=== PATIENT | female | born 1950 | race Caucasian/White ===

== ENCOUNTER 2018-06-26 06:48 | Day surgery (SDC) | payer MEDICARE, BC, SELFPAY ==
--- NOTE | 2018-06-26 06:54 | PDOC.DSDIS_ITS ---
Discharge Plan Disposition Patient Disposition: HOME Condition: Fair Discharge Details Reason For Visit: SCREENING Attending Provider: Manda Vivar Primary Care Provider: Bridgette Batista Home Meds and New Rx's Prescriptions: Continue omega-3 fatty acids 1,000 MG capsule 1 cap PO DAILY RF: 0 calcium carbonate-vitamin D3 [Caltrate with Vitamin D3] 1 EACH tablet 1 tab PO BID RF: 0 aspirin [Aspirin Low-Strength] 81 MG tablet,chewable 81 mg PO DAILY RF: 0 naproxen sodium [Aleve] 220 MG tablet 2 tab PO Q12H PRN RF: 0 naproxen 375 MG tablet,delayed release (DR/EC) 375 mg PO Q12H PRN Qty: 40 RF: 0 Atorvastatin Calcium 20 MG tablet 20 mg PO DAILY Qty: 90 RF: 12 losartan [Cozaar] 100 MG tablet 100 mg PO DAILY Qty: 90 RF: 4 conjugated estrogens [Premarin] 30 GM cream 5 gm VG twice weekly Qty: 3 RF: 12 Discontinued bisacodyl [Bisa-Lax] 5 MG tablet,delayed release (DR/EC) 5 mg PO as directed Qty: 4 RF: 0 polyethylene glycol 3350 255 GM powder 255 gm PO as directed for colo Qty: 255 RF: 0 Discharge Instructions Instructions: Colonoscopy (DC), Diverticulosis (DC) Additional Instructions: Findings: Diverticulosis Follow up: as needed as you will be 77 when you would be due for a colonoscopy Diet: high fiber diet New Medications: none Please call if you develop: fevers >101.5 Nausea or Vomiting Abdominal pain that is not transient 1. Because there will be medication in your system for the next 24 hours, you may feel a little sleepy. Your coordination will be affected. Therefore: a. Do not drive or operate dangerous equipment for 24 hours. b. Do not drink alcohol beverages for 24 hours (not even beer). c. Plan to go home and rest for the day. 2. Generally there are no restrictions on your activity after a day or so has gone by, but you may feel a bit fatigued for a few days. 3 After you arrive home you may have a light meal and return to a normal diet as you can tolerate it without feeling sick to your stomach. 4. After surgery, you may feel pain or discomfort. This should be only transient , but if it persists please contact your doctor. 5. If there are any questions regarding the findings of your procedure, please feel free to contact your doctor. 6. If you are unable to contact your doctor with a problem, contact the hospital at [phone]. 7. Continue all your regular medications unless directed otherwise. I understand the above instructions and have no questions. Signature of Patient or Responsible Adult Escort Date/Time Name of Responsible Adult Escort Signature of Nurse Date/Time Stand Alone Forms: Adrienne Shah (DSU) Activity:: Activity as Tolerated Diet:: high fiber diet Discharge Orders Discharge Orders: Discharge Order (Routine); Ordered 06/26/18 Ordered By: Manda Vivar
--- NOTE | 2018-06-26 06:54 | W.COLOREPORT ---
Date of service: 06/26/18 Colonoscopy Report Date of procedure: 06/26/18 Pre-op diagnosis general: Screening Colonoscopy Post-op diagnosis procedure note: other (Diverticulosis) Procedure: Colonoscopy Surgeon: Manda Vivar Anesthesia proc note operative: MAC Estimated blood loss (mL): 3 Pathology: none sent Complications: None Disposition: same day Indications: Mrs. Streeter is a 67 year old female who was seen in the office for a screening colonoscopy. Risks, benefits and complications and the patient wished to proceed. No guarantees were given or implied. Prep: Miralax Procedure Start Time: 08:33 Procedure End Time: 08:57 Retraction Time: 13 min Findings: Moderate Diverticulosis of the descending and sigmoid colon Procedure Description: After informed consent was obtained the patient was taken to the procedure room and placed in a left decubitous position. Monitors were applied and a time out was done. The patients name, date of , procedure, allergies to medications and metal in their body was reviewed. The patient was then sedated. Once sedated and comfortable a rectal exam was done. External exam was normal. Internal exam revealed a normal sphincter tone and no palpable masses. The scope was then introduced and retrofelxed. Small internal hemorrhoids were identified. The scope was then advanced to the cecum without difficulty. The TI and appendiceal orifice were identified. The prep was adequate. The scope was then slowly retracted over 13 minutes back into the rectum. The scope was removed and the patient was woken up and taken back to Same day surgery in stable condition. The patient tolerated the procedure well and there were no immediate complications. Follow up: The patient should follow up as needed due to their age, unless they develop changes in bowel habits or other new gastrointestinal complaints.
[2018-06-26 07:03] VITALS: BP 125/73; PULSE 80; RESP 16; TEMP 36.7; O2SAT 96
[2018-06-26] MEDS: Lactated Ringers 1,000 ML 80 ML IV (07:31)
[2018-06-26 09:40] VITALS: BP 130/63; PULSE 59; RESP 18; TEMP 37.3; O2SAT 95
== END 2018-06-26 10:10 | disposition home or self-care (01) ==
PROVIDERS: PCP Family Medicine; Visit Provider Surgery
PROC: 0DJD8ZZ Inspection of Lower Intestinal Tract, Via Natural or Artificial Opening Endoscopic (ICD-10-PCS; CPT 45378; principal; 2018-06-26 08:10)
DX: Z12.11 Encounter for screening for malignant neoplasm of colon (principal); K57.30 Diverticulosis of large intestine without perforation or abscess without bleeding; K64.8 Other hemorrhoids
CPT/HCPCS: G0121

== ENCOUNTER 2019-04-25 01:48 | Outpatient (CLI) | payer MEDICARE, BC, SELFPAY ==
[2019-04-25 13:15] LABS: ALT 30 U/L (12-78); AST 20 U/L (15-37); Alkaline Phosphatase 49 U/L (46-116); Anion Gap 9.4 mmol/L (3-11); BUN 15 mg/dL (7-18); Bilirubin, Total 0.7 mg/dL (0.2-1.0); CO2 28.6 mmol/L (21.0-32.0); CREATININE 0.71 mg/dL (0.55-1.02); Calcium 9.1 mg/dL (8.5-10.1); Calculated LDL 113 mg/dL; Chloride 105 mmol/L (98-107); Cholesterol 187 mg/dL (50-200); Glucose 86 mg/dL (70-100); HDL Cholesterol 53 mg/dL (40-60); Potassium 4.4 mmol/L (3.5-5.1); Sodium 143 mmol/L (136-145); Triglyceride 108 mg/dL (30-150)
== END 2019-04-25 02:08 ==
PROVIDERS: PCP Family Medicine; Visit Provider Family Medicine
DX: I10 Essential (primary) hypertension (principal)
CPT/HCPCS: 36415; 80053; 80061; 83721

== ENCOUNTER 2019-05-17 00:23 | Outpatient (CLI) | payer MEDICARE, BC, SELFPAY ==
--- NOTE | 2019-05-17 08:00 | DI.MAMMO_ITS ---
SYMPTOM/DIAGNOSIS: SCREENING Z12.31 MAMMOGRAM: Mammograms were interpreted according to the usual protocol including computer analysis with CAD system, tomosynthesis and C view imaging. The breast tissue is heterogeneously radiodense which lowers the sensitivity of the study. There is no dominant mass. There are no suspicious calcifications and there has been no significant interval change when compared with prior images. SUMMARY: No evidence of malignancy, Category 1. Follow up surveillance with annual screening is recommended. Breast density category C. MQSA ASSESSMENT OF FINDINGS: Negative. Category 1. Patient will receive a letter notifying them of these results. Bi-RADS category C. The breasts are heterogeneously dense, which may obscure small masses.
--- NOTE | 2019-05-17 08:23 | DI.RAD_ITS ---
SYMPTOM/DIAGNOSIS: LEFT KNEE PAIN M25.562 LEFT KNEE: There is evidence of chondrocalcinosis. Mild periarticular hypertrophic spurring is identified. Findings are consistent with mild to moderate DJD.
== END 2019-05-17 00:43 ==
PROVIDERS: PCP Family Medicine; Visit Provider Family Medicine
DX: Z12.31 Encounter for screening mammogram for malignant neoplasm of breast (principal); M25.562 Pain in left knee
CPT/HCPCS: 77063; 77067; 73564

== ENCOUNTER 2020-10-13 08:22 | Outpatient (CLI) | payer MEDICARE, BC, SELFPAY ==
[2020-10-13 12:50] LABS: ALT 27 U/L (14-59); AST 18 U/L (15-37); Albumin 4.2 g/dL (3.4-5.0); Alkaline Phosphatase 36 U/L (46-116); Anion Gap 7.9 mmol/L (3-11); BUN 12 mg/dL (7-18); Bilirubin, Total 0.7 mg/dL (0.2-1.0); CO2 27.1 mmol/L (21.0-32.0); CREATININE 0.78 mg/dL (0.55-1.02); Calcium 9.1 mg/dL (8.5-10.1); Calculated LDL 99 mg/dL (<100); Chloride 107 mmol/L (98-107); Cholesterol 175 mg/dL (<200); Glucose 95 mg/dL (74-106); HDL Cholesterol 53 mg/dL (40-60); Potassium 4.1 mmol/L (3.5-5.1); Sodium 142 mmol/L (136-145); Total Protein 7.2 g/dL (6.4-8.2); Triglyceride 116 mg/dL (<150)
== END 2020-10-13 08:42 ==
PROVIDERS: PCP Family Medicine; Visit Provider Family Medicine
DX: I10 Essential (primary) hypertension (principal); E78.00 Pure hypercholesterolemia, unspecified
CPT/HCPCS: 36415; 80053; 80061

== ENCOUNTER 2021-05-12 03:26 | Outpatient (CLI) | payer MEDICARE, BC, SELFPAY ==
[2021-05-12 12:38] LABS: Hemoglobin A1C 5.8 % (<5.7)
[2021-05-12 13:02] LABS: ALT 32 U/L (14-59); AST 18 U/L (15-37); Albumin 4.2 g/dL (3.4-5.0); Alkaline Phosphatase 41 U/L (46-116); BUN 15 mg/dL (7-18); Bilirubin, Total 0.8 mg/dL (0.2-1.0); CREATININE 0.7 mg/dL (0.55-1.02); Calcium 9.3 mg/dL (8.5-10.1); Calculated LDL 108 mg/dL (<100); Chloride 106 mmol/L (98-107); Cholesterol 181 mg/dL (<200); Glucose 94 mg/dL (74-106); HDL Cholesterol 54 mg/dL (40-60); Potassium 4.2 mmol/L (3.5-5.1); Sodium 143 mmol/L (136-145); TSH (W/Ref FT4) 2.08 uIU/mL (0.36-3.74); Total Protein 7.3 g/dL (6.4-8.2); Triglyceride 98 mg/dL (<150); Vitamin B12 389 pg/mL (193-986)
== END 2021-05-12 03:27 | disposition home or self-care (01) ==
LOC: LOS 03:26
PROVIDERS: PCP Family Medicine; Visit Provider Family Medicine
DX: I10 Essential (primary) hypertension (principal); E78.00 Pure hypercholesterolemia, unspecified; E11.9 Type 2 diabetes mellitus without complications; G56.03 Carpal tunnel syndrome, bilateral upper limbs; G62.9 Polyneuropathy, unspecified; R20.0 Anesthesia of skin
CPT/HCPCS: 36415; 80053; 80061; 82607; 83036; 84443

== ENCOUNTER 2021-05-27 02:10 | Outpatient (CLI) | payer MEDICARE, BC, SELFPAY ==
--- NOTE | 2021-05-27 07:15 | DI.MAMMO_ITS ---
Exam(s) MAMMO SCREENING EXAM: MAMMO SCREENING CLINICAL HISTORY: screening,Z12.39 TECHNIQUE: Mammograms were interpreted according to the usual protocol including computer analysis w Touchbase CAD system, tomosynthesis and C-view imaging. COMPARISON: 2011 through 2018 FINDINGS: The breasts are composed of heterogeneously dense fibroglandular densities, Breast Density category C . No suspicious masses or suspicious microcalcifications are seen. No skin thickening or abnormal axillary lymph nodes are seen. There has been no significant change from prior exams. IMPRESSION: BI-RADS Category 1, Negative mammogram. Yearly screening mammography is recommended. Breast Density Category C, heterogeneously Dense. The mammogram demonstrates the patient's breast tissue is dense. Dense breast tissue is very common a nd is not abnormal but dense breast tissue can make it harder to find cancer on a mammogram. Also, de nse breast tissue may increase breast cancer risk. This information about the result of the mammogram report was provided to the patient to raise their awareness. Use this report when you speak with the patient about their risks for breast cancer, which includes their family history. At that time, you may recommend additional screening tests (Ultrasound or MRI) as they might be useful based on their r isk. A negative radiographic report should not delay biopsy if a dominant or clinically suspicious mass is present. Up to ten percent of cancers are not identified on mammography. A negative report may reinforce clinical impression. Adenosis and dense breasts may obscure an underlying neoplasm. False positive reports average 6 to 10%.
== END 2021-05-27 02:30 ==
PROVIDERS: PCP Family Medicine; Visit Provider Family Medicine
DX: Z12.31 Encounter for screening mammogram for malignant neoplasm of breast (principal)
CPT/HCPCS: 77063; 77067

== ENCOUNTER → 2021-10-21 08:48 | Outpatient (BNVA) | payer MEDICARE, BC, SELFPAY | PROVIDERS: PCP Family Medicine; Referring Provider Family Medicine; Visit Provider Psychiatry & Neurology Neurology | DX: G56.03 Carpal tunnel syndrome, bilateral upper limbs (principal); I10 Essential (primary) hypertension | CPT/HCPCS: 95909; 99203 ==

== ENCOUNTER → 2021-12-07 10:00 | Outpatient (BNVA) | payer MEDICARE, BC, SELFPAY | PROVIDERS: PCP Family Medicine; Referring Provider Family Medicine; Visit Provider Student in an Organized Health Care Education/Training Program | DX: G56.02 Carpal tunnel syndrome, left upper limb (principal); G56.01 Carpal tunnel syndrome, right upper limb | CPT/HCPCS: 99213 ==

== ENCOUNTER 2022-01-04 02:40 | Outpatient (CLI) | payer MEDICARE, BC, SELFPAY ==
[2022-01-04 11:25] LABS: Source Nasal/Nares
[2022-01-04 16:09] LABS: COVID-19 PCR Negative (Negative)
== END 2022-01-04 02:41 | disposition home or self-care (01) ==
LOC: LBO 02:41
PROVIDERS: PCP Family Medicine; Visit Provider Student in an Organized Health Care Education/Training Program
DX: Z20.822 Contact with and (suspected) exposure to COVID-19 (principal); Z01.818 Encounter for other preprocedural examination
CPT/HCPCS: 87635; U0005

== ENCOUNTER 2022-01-05 08:53 | Day surgery (SDC) | payer MEDICARE, BC, SELFPAY ==
[2022-01-05 09:04] VITALS: BP 152/76; PULSE 58; RESP 16; TEMP 36.7; O2SAT 97
--- NOTE | 2022-01-05 09:26 | W.PREOPHP ---
Assessment and Plan Assessment and plan (1) Right carpal tunnel syndrome: Status: Acute Assessment and plan: Laine is a 71-year-old with bilateral carpal tunnel syndrome. She is here today for right carpal tunnel release. She is to have a left carpal tunnel release in a few weeks. I discussed the technical details of carpal tunnel release and that I perform an endoscopic release, but would make a larger, open, incision if necessary for visualization. I discussed the risks of the procedure to include, but not limited to, bleeding, infection, palmar pain, stiffness, damage to nerves, damage to vessels, damage to tendons, weakness, recurrence, and incomplete release. Given these risks, Laine desires to proceed. (2) Left carpal tunnel syndrome: Status: Acute History of Present Illness Narrative: Laine is a 71-year-old who has carpal tunnel syndrome. Both hands are affected but the right hand is slightly worse. She is right-hand dominant and is here today to proceed with a right carpal tunnel release to be followed by left carpal tunnel release in a few weeks. She had persistent numbness and tingling of both hands. She has some weakness and some limitations in function. She is had no change or medical history. No chest pain or shortness of breath. Review of Systems All systems reviewed & are unremarkable except as noted in HPI and below PFSH All Active Problems Right carpal tunnel syndrome (Acute) Left carpal tunnel syndrome (Acute) Neuropathy (Acute) Patient is full code (Acute) Left knee pain (Acute) Cramping of feet (Acute 08/11/15) Hip pain (Acute 09/04/13) History of laser assisted in situ keratomileusis (Acute) History of surgical procedure (Acute) Injury of head (Acute 12/15/07) Neck pain (Acute 09/04/13) Pain of both shoulder joints (Acute 08/11/15) Palpitations (Acute) Positive test for human papillomavirus (HPV) (Acute 02/10/15) Radial styloid tenosynovitis (Acute 04/13/17) Schwannomatosis (Acute) Shoulder pain (Acute 08/11/15) Vertigo (Acute) Varicose veins of lower extremity (Chronic) Vaginal atrophy (Chronic 04/01/16) Osteopenia (Chronic) Organic sleep apnea, 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 Hypercholesterolemia (Chronic) Essential hypertension (Chronic 08/24/13) Diverticulosis of colon without diverticulitis (Chronic 12/07/11) Atypical mole (Chronic 09/19/17) Actinic keratosis (Chronic 03/21/17) Diverticulosis (Chronic) Medical History Cramping of feet 08/11/15 De Quervain's disease (tenosynovitis) 04/13/17 Darrell Scott PT; Left Wrist Hip pain 09/04/13 History of benign schwannoma Hypercholesterolemia Hypertension Injury of head 12/15/07 after falling; with little sequelae Neck pain 09/04/13 Osteopenia Pain of both shoulder joints 08/11/15 Palpitations Positive test for human papillomavirus (HPV) (02/10/15) neg pap, (+)HR HPV 2013 and 2014 colposcopy - per [facility] no further paps needed pap-ASC-US, (+) HR HPV 02/23/16 Positive test for human papillomavirus (HPV) 02/10/15 neg pap, (+) HR HPV 2013 and 2014. colposcopy- per [facility] no further needed. pap-ASC-US, (+) HR HPV 02/23/16; Neg HPV 06/28/16. No more paps Shoulder pain 08/11/15 unspecified laterality Sleep apnea Varicose veins of both lower extremities Surgical History Colonoscopy - IV Sedation 2007-nl H/O surgical procedure excision of mediastinal schwannoma Hx of LASIK 10/17/06 LASIX (~2006) PROCEDURES OTHER SOFT TISSUE EXCIS, 1988 excision of mediastinal schwannoma Family History Mother , 80 Essential hypertension Heart disease CHF Hyperlipidemia Myocardial infarction Father , 69 Alcohol abuse Smoker Cancer Brother Heart disease Myocardial infarction X 3 Brother Heart disease ANGINA Myocardial infarction Maternal Grandmother Cancer Paternal Grandmother Rectal cancer Uncle Heart disease Myocardial infarction 2 UNCLES Sister Heart disease Myocardial infarction PACEMAKER FIRST COUSIN Heart disease Myocardial infarction Maternal Grandfather Diabetes Paternal Grandfather No problems noted. Sister Skin cancer Heart disease NEPHEW Myocardial infarction Sister Heart disease Daughter No problems noted. Daughter No problems noted. Social History Smoking/Tobacco Use Status: Never Second Hand Exposure: Yes Smoking risk assessment performed?: Yes Alcohol Intake: current Alcohol Intake frequency: a few times a week Alcohol type: wine Drug use: Never Substance use type: does not use Counseling given: No Counseling provided: none Household members: spouse and other Details: Home provider x 2 Housing: house Number of Children: 3 Communication Needs: None Do you need help understanding health information?: Rarely current occupation: Home Care provider Do you think of yourself as: straight/heterosexual What is your relationship status?: How often do you talk on the phone with friends or family?: once per week Do you belong to any clubs or organized social groups?: no Panel score (0-1 are the most socially isolated patients): 1 Seatbelt use: always Drive intox or ride w/intox public transit bus driver: No Do you feel safe at home: No Do you feel safe in your relationship?: No Meds Allergies and Home Medications Allergies Allergy/AdvReac Type Severity Reaction Status Date / Time lisinopril AdvReac Unknown COUGH Verified 01/05/22 09:08 Home Medications Medication Instructions Recorded Confirmed Type calcium carbonate 600 mg-vitamin 1 tab PO BID 01/01/13 01/05/22 History D3 20 mcg (800 unit) tablet (Caltrate with Vitamin D3) aspirin 81 mg chewable tablet 81 mg PO DAILY tab-cap 10/07/14 01/05/22 History (Aspirin Low-Strength) acetaminophen 650 mg 650 mg PO Q12H PRN tab 05/01/19 01/05/22 History tablet,extended release (Tylenol Arthritis Pain) magnesium oxide 420 mg tablet 420 mg PO DAILY 11/06/20 01/05/22 History atorvastatin 20 mg tablet 20 mg PO DAILY #90 tab 03/06/21 01/05/22 Rx losartan 100 mg tablet (Cozaar) 100 mg PO DAILY #90 tab 03/06/21 01/05/22 Rx omega-3 fatty acids 500 mg capsule 500 mg PO DAILY 05/07/21 01/05/22 History estradiol 2 g VG .twice weekly #42.5 gm 11/09/21 01/05/22 Rx Exam Resp Effort & Inspection: normal respiratory effort and able to speak in complete sentences Auscultation: clear to auscultation bilaterally Cardio Rate: regular rate Rhythm: regular rhythm Results Last Vital Signs Temp 36.7 C 01/05/22 09:04 Pulse 58 L 01/05/22 09:04 Resp 16 01/05/22 09:04 BP 152/76 H 01/05/22 09:04 Pulse Ox 97 01/05/22 09:04
[2022-01-05] MEDS: Lactated Ringers 1,000 ML 80 ML IV (09:30)
--- NOTE | 2022-01-05 09:33 | W.ANESPRE ---
General Info Date of Service Date Performed: 01/05/22 Height: 5 ft 3 in Weight: 72.3 kg Body Mass Index (BMI): 28.2 Surgical Procedure: Operation Date: 01/05/22 10:55 Proposed Procedure Side Surgeon p Wrist ECTR Right Duane Del Angel MD Meds Allergies and Home Medications Allergies Allergy/AdvReac Type Severity Reaction Status Date / Time lisinopril AdvReac Unknown COUGH Verified 01/05/22 09:08 Home Medication Medication Instructions Recorded calcium carbonate 600 mg-vitamin 1 tab PO BID 01/01/13 D3 20 mcg (800 unit) tablet (Caltrate with Vitamin D3) aspirin 81 mg chewable tablet 81 mg PO DAILY tab-cap 10/07/14 (Aspirin Low-Strength) acetaminophen 650 mg 650 mg PO Q12H PRN tab 05/01/19 tablet,extended release (Tylenol Arthritis Pain) magnesium oxide 420 mg tablet 420 mg PO DAILY 11/06/20 atorvastatin 20 mg tablet 20 mg PO DAILY #90 tab 03/06/21 losartan 100 mg tablet (Cozaar) 100 mg PO DAILY #90 tab 03/06/21 omega-3 fatty acids 500 mg capsule 500 mg PO DAILY 05/07/21 estradiol 2 g VG .twice weekly #42.5 gm 11/09/21 Current Visit Medications: Current Medications Generic Name Dose Route Start Last Admin Trade Name Freq PRN Reason Stop Dose Admin Ringer's Solution 1,000 mls @ 80 mls/hr 01/05/22 06:00 01/05/22 09:30 IV 01/14/22 23:59 80 mls/hr INFUSION COBY Administration Cefazolin Sodium/Dextrose 2 gm in 50 mls @ 100 mls/hr 01/05/22 06:00 Ancef Duplex IVPB 01/05/22 23:59 PREOP COBY IV Miscellaneous Supplies 1 each 01/05/22 06:00 Iv Access IV 01/14/22 23:59 DIRECTED COBY Sodium Chloride 0 ml 01/05/22 06:00 Normal Saline Flush 10 Ml Syr IV 01/14/22 23:59 PRN PRN Sodium Chloride 0 ml 01/05/22 06:00 Normal Saline 10 Ml Vial IJ 01/14/22 23:59 DIRECTED PRN Sterile Water 0 ml 01/05/22 06:00 Water,Injection,Sterile 10 Ml Vial IJ 01/14/22 23:59 DIRECTED PRN [facility] Active Problems Active Problems: Problem Status Onset Code Right carpal tunnel syndrome G56.01 Left carpal tunnel syndrome G56.02 Neuropathy G62.9 Patient is full code Z78.9 Left knee pain M25.562 Cramping of feet 08/11/15 R25.2 Hip pain 09/04/13 M25.559 History of laser assisted in situ keratomileusis Z98.890 History of surgical procedure Z98.890 Injury of head 12/15/07 S09.90XA Neck pain 09/04/13 M54.2 Pain of both shoulder joints 08/11/15 M25.511, M25.512 Palpitations R00.2 Positive test for human papillomavirus (HPV) 02/10/15 Radial styloid tenosynovitis 04/13/17 M65.4 Schwannomatosis Q85.03 Shoulder pain 08/11/15 M25.519 Vertigo R42 Varicose veins of lower extremity I83.90 Vaginal atrophy 04/01/16 N95.2 Osteopenia M85.80 Organic sleep apnea, unspecified G47.30 Hypercholesterolemia E78.00 Essential hypertension 08/24/13 I10 Diverticulosis of colon without diverticulitis 12/07/11 K57.30 Atypical mole 09/19/17 D22.9 Actinic keratosis 03/21/17 L57.0 Diverticulosis K57.90 Medical History Medical History Cramping of feet 08/11/15 De Quervain's disease (tenosynovitis) 04/13/17 Darrell Scott, PT; Left Wrist Hip pain 09/04/13 History of benign schwannoma Hypercholesterolemia Hypertension Injury of head 12/15/07 after falling; with little sequelae Neck pain 09/04/13 Osteopenia Pain of both shoulder joints 08/11/15 Palpitations Positive test for human papillomavirus (HPV) (02/10/15) neg pap, (+)HR HPV 2013 and 2014 colposcopy - per [facility] no further paps needed pap-ASC-US, (+) HR HPV 02/23/16 Positive test for human papillomavirus (HPV) 02/10/15 neg pap, (+) HR HPV 2013 and 2014. colposcopy- per [facility] no further needed. pap-ASC-US, (+) HR HPV 02/23/16; Neg HPV 06/28/16. No more paps Shoulder pain 08/11/15 unspecified laterality Sleep apnea Varicose veins of both lower extremities Surgical History Surgical History Colonoscopy - IV Sedation 2008-nl H/O surgical procedure excision of mediastinal schwannoma Hx of LASIK 10/17/06 LASIX (~2006) PROCEDURES OTHER SOFT TISSUE EXCIS, 1988 excision of mediastinal schwannoma Tobacco Smoking/Tobacco Use Status: Never Passive smoking exposure: Yes Second hand exposure: Yes Alcohol Alcohol Intake: current Alcohol intake frequency: a few times a week Alcohol type: wine Substance Use Substance use: Never Substance use type: does not use Counseling provided: none Vital Signs and Lab Results Vital Signs Most Recent Vital Signs in EMR: Most Recent Vital Signs Temp Pulse Resp BP Pulse Ox 36.7 C 58 L 16 152/76 H 97 01/05/22 09:04 01/05/22 09:04 01/05/22 09:04 01/05/22 09:04 01/05/22 09:04 Lab Results Blood Type / Crossmatch: No Data to Display Complete Blood Count: No Data to Display Complete Metabolic Panel: No Data to Display Liver Function Panel: No Data to Display Coagulation Panel: No Data to Display Cardiac Panel: No Data to Display Arterial Blood Gas: No Data to Display Venous Blood Gas: No Data to Display Pancreas Panel: No Data to Display Thyroid Panel: No Data to Display Infectious Disease: Coronavirus (COVID-19)(PCR) Negative (Negative) 01/04/22 09:41 01/04/22 Coronavirus 2019 Source Nasal/Nares 01/04/22 09:41 01/04/22 Blood Cultures: No Data to Display Toxicology Panel: No Data to Display Anesthesia Assessment and Plan Anesthesia History Personal History: No History of Anesthesia Complications Family History: No Family History of Anesthesia Complications Exercise Tolerance Exercise Tolerance: Metabolic Equivalents>4 Pertinent Negatives Pertinent Negatives: No Symptoms of GERD, No Major Cardiovascular Symptoms or Complaints, No Major Pulmonary Symptoms or Complaints (CPAP regular) and No History of CVA/TIA Cardiac & Pulmonary Exam Cardiac Exam: Normal S1/S2 Heart Sounds Pulmonary Exam: Clear Bilateral Breath Sounds and No cough or Cold Implantable Cardiac Device Does patient have a Pacemaker or an ICD?: No Airway Exam Known Difficult Airway: No Mallampati Class: 4 Mouth Opening: Normal (> 3cm) Thyromental Distance: Greater than 3 cm Neck Range of Motion: Full ROM Neck Circumference: Normal Teeth Condition: Normal Dentition ASA Classification ASA Score: ASA 2 Emergency Case?: No NPO Status NPO Status: NPO Clears >2 hours, Solids >8 hours Anesthesia Plan Resuscitation Status: Full Code Anesthesia Technique: General Anesthesia Airway Planned: Natural Airway Monitors Used: Standard Monitors
[2022-01-05 09:41] VITALS: BMI 28.2
--- NOTE | 2022-01-05 09:46 | PDOC.DSDIS_ITS ---
Discharge Plan Disposition Patient Disposition: HOME Condition: Good Discharge Details Reason For Visit: R ECTR Attending Provider: Duane Del Angel Primary Care Provider: Bridgette Batista Home Meds and New Rx's Prescriptions: New acetaminophen 500 mg tablet 1,000 mg PO TID Qty: 90 0RF ibuprofen 600 mg tablet 600 mg PO TID PRN (Reason: pain) Qty: 90 0RF aspirin 81 mg tablet,chewable 81 mg PO DAILY Qty: 30 0RF Continued magnesium oxide 420 mg tablet 420 mg PO DAILY 0RF omega-3 fatty acids 500 mg capsule 500 mg PO DAILY 0RF calcium carbonate-vitamin D3 [Caltrate with Vitamin D3] 1 EACH tablet 1 tab PO BID 0RF losartan [Cozaar] 100 mg tablet 100 mg PO DAILY Qty: 90 4RF atorvastatin 20 mg tablet 20 mg PO DAILY Qty: 90 4RF estradiol 0.01 % (0.1 mg/gram) cream 2 g VG .twice weekly Qty: 42.5 4RF Rx Instructions: twice weekly Discontinued acetaminophen [Tylenol Arthritis Pain] 650 mg tablet extended release 650 mg PO Q12H PRN0RF aspirin [Aspirin Low-Strength] 81 MG tablet,chewable 81 mg PO DAILY 0RF Discharge Instructions Stand Alone Forms: Bean Bermudez Tunnel Release Referrals: Duane Del Angel MD [ [facility] ST[facility]FF [facility]YSICIAN] - Activity:: Activity as Tolerated Remove Dressings/Wound Care:: 48 hours Shower/Bathe:: 48 hours Diet:: As Tolerated Discharge Orders Discharge Orders: Discharge Order (Routine); Ordered 01/05/22 Ordered By: Derrick Mccray DS: Diagnosis Discharge Diagnosis (1) Right carpal tunnel syndrome: Status: Acute (2) Left carpal tunnel syndrome: Status: Acute
[2022-01-05] MEDS: ceFAZolin 2 GM/50 ML BAG IVPB (10:28)
[2022-01-05] MEDS: Sodium Bicarbonate 50 MEQ/50 ML VIAL (10:38)
[2022-01-05 10:55] VITALS: BP 110/59; PULSE 64; RESP 16; TEMP 36.1; O2SAT 96
[2022-01-05 11:20] VITALS: BP 114/60; PULSE 58; RESP 16; TEMP 36.5; O2SAT 95
--- NOTE | 2022-01-05 12:16 | W.ANESPOSTOP ---
Postoperative Evaluation Date, Time and Location Date Performed: 01/05/22 Time Performed: 11:20 Patient Location: Day Surgery Unit Vital Signs Most Recent Imported Vital Signs: Most Recent Vital Signs Temp Pulse Resp BP Pulse Ox 36.5 C 58 L 16 114/60 95 01/05/22 11:20 01/05/22 11:20 01/05/22 11:20 01/05/22 11:20 01/05/22 11:20 Pain Score Most Recent Pain Score: Most Recent Pain Score Pain Level 0 01/05/22 11:20 Assessment Mental Status: Awake (Alert & Oriented to Patient Baseline) Airway and Respiratory Function: Patent airway with normal (patient baseline) respiratory exam Cardiovascular Function: Hemodynamically Stable Hydration Status: Adequately Hydrated Nausea & Vomiting: No Nausea or Vomiting Pain: Pt. Denies Any Pain Peripheral Nerve Block: Patient did not receive a nerve block
--- NOTE | 2022-01-05 15:58 | ROE_ITS ---
Date of service: 01/05/22 Time of Service: 10:45 Operative Note Operative Note DATE OF PROCEDURE: 01/05/22 PRE-OP DIAGNOSIS: Right Carpal Tunnel Syndrome POST-OP DIAGNOSIS: same PROCEDURE: Right Endoscopic Carpal Tunnel Release SURGEON: Duane Del Angel ANESTHESIA TYPE: General:No Airway Refer to Anesthesia Record ESTIMATED BLOOD LOSS: 0 PATHOLOGY: none sent TOURNIQUET TIME: 4 COMPLICATIONS: None Patient was transported to: same day Patient's condition: stable Indications: I have seen Laine in clinic for symptoms of carpal tunnel syndrome. The numbness, tingling, and pain limited function. Clinical exam findings with nerve conduction tests confirmed the diagnosis of carpal tunnel syndrome. Nonoperative measures such as bracing, time, activity modifications had been tried but disability and pain persisted. I discussed carpal tunnel release with the patient. I reviewed the risks of the procedure to include, but not limited to, bleeding, infection, pain, stiffness, incomplete release, damage to nerves or vessels, persistent numbness, recurrence. Despite these risks, the patient elected to proceed. Findings: There was tightened carpal tunnel. This was dilated and released successfully with the endoscopic with increased space within the tunnel. The antebrachial fascia was released proximally freeing the median nerve at the wrist. Procedure Description: Laine was greeted in the preoperative holding area where the correct side was identified and marked. The consent was reviewed with the patient and signed. The history and physical was updated. All questions were answered. She was taken back to the operating room. The patient was placed into the supine position on the operating room table with the right arm on an arm board. A nonsterile tourniquet was placed high onto the arm. All bony prominences were well padded. Prophylactic antibiotics in the form of Cefazolin were administered. The right arm was then prepped with Chloraprep and draped in a standard fashion with stockinette and extremity drape. A timeout to confirm correct identity, side and site, procedure, allergies, anesthesia, and medical concerns was performed. The surgical site was marked in the volar wrist creases in line with the radial border of the fourth ray. This area was anesthetized with approximately 6cc of 1% Lidocaine. The limb was then exsanguinated with an Esmarch. The skin was incised with a 15 blade, approximately 1cm. The skin only was cut and the deeper tissue was dissected bluntly with a tenotomy scissor, avoiding passing nerve and venous structures. The fascia was penetrated and opened bluntly. A two-prong skin hook was placed under this proximal fascial edge. A series of hamate finders were used to identify and dilate the carpal tunnel. Synovial elevator was used to free synovial attachments to the underside of the transverse carpal ligament. My thumb was kept in the palm to janae the distal extent of the carpal tunnel and correctly position the hand. The Microaire end oscope was inserted without difficulty and without resistance. Excellent visualization showed horizontally running fibers of the transverse carpal ligament (TCL). The distal extent of the TCL was visualized and the end of the scope palpated with the thumb. The blade was elevated and withdrawn from distal to proximal. The TCL was split into two flaps. The endoscope was reinserted to confirm complete release and any remnant ligament was incised. The scope was withdrawn and the proximal aspect of the carpal tunnel was grossly inspected and appeared release with the median nerve visible. The antebrachial fascia at the level of the wrist was then freed from the overlying skin and then the underlying median nerve with blunt dissection. This was transected longitudinally for about 3cm proximal to the wrist incision. The wound was then irrigated with easy flow of irrigant distally and proximally. The incision was closed with a single 4-0 Nylon suture. The wound was dressed with Xeroform, Gauze, Kerlix and Lew. The tourniquet was deflated with the initial dressing and held with some pressure. Blood flow returned easily to all digits with capillary refill less than 2 seconds. The patient tolerated the procedure well and was returned to the Same Day Surgery area in a stable condition suffering no known complication.
== END 2022-01-05 11:27 | disposition home or self-care (01) ==
PROVIDERS: PCP Family Medicine; Visit Provider Student in an Organized Health Care Education/Training Program
PROC: 01N54ZZ Release Median Nerve, Percutaneous Endoscopic Approach (ICD-10-PCS; CPT 29848; principal; 2022-01-05 10:45)
DX: G56.01 Carpal tunnel syndrome, right upper limb (principal); E78.00 Pure hypercholesterolemia, unspecified; I10 Essential (primary) hypertension
CPT/HCPCS: 29848; J0690; J1885; J2001; J2250; J2405; J2704; J3010

== ENCOUNTER → 2022-01-14 09:09 | Outpatient (BNVA) | payer MEDICARE, BC, SELFPAY | PROVIDERS: PCP Family Medicine; Referring Provider Family Medicine; Visit Provider Student in an Organized Health Care Education/Training Program | DX: G56.01 Carpal tunnel syndrome, right upper limb (principal) ==

== ENCOUNTER → 2022-02-22 09:13 | Outpatient (BNVA) | payer MEDICARE, BC, SELFPAY | PROVIDERS: PCP Family Medicine; Referring Provider Family Medicine; Visit Provider Student in an Organized Health Care Education/Training Program | DX: Z47.89 Encounter for other orthopedic aftercare (principal); G56.01 Carpal tunnel syndrome, right upper limb ==

== ENCOUNTER → 2022-04-26 09:39 | Outpatient (BNVA) | payer MEDICARE, BC, SELFPAY | PROVIDERS: PCP Family Medicine; Referring Provider Family Medicine; Visit Provider Student in an Organized Health Care Education/Training Program | DX: M67.431 Ganglion, right wrist (principal); G56.01 Carpal tunnel syndrome, right upper limb | CPT/HCPCS: 99213 ==

== ENCOUNTER 2022-05-11 09:59 | Outpatient (CLI) | payer MEDICARE, BC, SELFPAY ==
[2022-05-11 12:52] LABS: ALT 24 U/L (14-59); AST 18 U/L (15-37); Albumin 4.4 g/dL (3.4-5.0); Alkaline Phosphatase 41 U/L (46-116); Anion Gap 8.5 mmol/L (3-11); BUN 17 mg/dL (7-18); CO2 28.5 mmol/L (21.0-32.0); CREATININE 0.9 mg/dL (0.55-1.02); Calcium 9.6 mg/dL (8.5-10.1); Calculated LDL 106 mg/dL (<100); Chloride 104 mmol/L (98-107); Cholesterol 194 mg/dL (<200); Glucose 95 mg/dL (74-106); HDL Cholesterol 64 mg/dL (40-60); Potassium 3.9 mmol/L (3.5-5.1); Sodium 141 mmol/L (136-145); Total Protein 7.9 g/dL (6.4-8.2); Triglyceride 124 mg/dL (<150)
== END 2022-05-11 10:00 | disposition home or self-care (01) ==
LOC: LOS 09:59
PROVIDERS: PCP Family Medicine; Visit Provider Family Medicine
DX: E78.00 Pure hypercholesterolemia, unspecified (principal); I10 Essential (primary) hypertension
CPT/HCPCS: 36415; 80053; 80061

== ENCOUNTER → 2022-05-17 00:55 | Outpatient (CLI) | payer MEDICARE, BC, SELFPAY ==
--- NOTE | 2022-05-17 06:45 | DI.MRI_ITS ---
Exam(s) MR UPPER JOINT RT WO EXAM: MR UPPER JOINT RT WO CLINICAL HISTORY: pain,ganglion cyst rt wrist,m67.431. TECHNIQUE: Multiplanar multisequence MRI was performed. COMPARISON: No exams were available for comparison FINDINGS: MR examination of the wrist was performed according to the usual protocol. Patient reportedly has a question of palpable abnormality of the palm are surface of the wrist, there is a history carpal tunn el cyst surgery about 2 months ago. There are moderate degenerative changes of the joints of the carpus. There is otherwise no significa nt bony signal abnormality. There is signal abnormality in the abductor pollicis musculature which i s nonspecific but which could be associated with prior neuropathy. No ganglion cyst identified in the region of the wrist. There is some prominence and mildly increased signal of the median nerve at the level of the radiocar pal joint. No pre-surgical study available for comparison. Edema or hamartoma of the nerve not excl uded, please correlate clinically. No other significant mass identified in the region of the wrist. Note is made of mildly abnormal signal in multiple flexor tendons consistent with mild tendinosis. IMPRESSION: No mass identified in the region of the carpus in a patient with prior carpal tunnel surgery. There is mild prominence and abnormal signal of the median nerve at the level of the radiocarpal joints, ne rve edema or hamartoma should be considered. Please correlate with neurologic examination. DATA REPOSITORY:
== END ==
PROVIDERS: PCP Family Medicine; Visit Provider Student in an Organized Health Care Education/Training Program
DX: M67.431 Ganglion, right wrist (principal)
CPT/HCPCS: 73221

== ENCOUNTER → 2022-05-31 09:18 | Outpatient (BNVA) | payer MEDICARE, BC, SELFPAY | PROVIDERS: PCP Family Medicine; Referring Provider Family Medicine; Visit Provider Student in an Organized Health Care Education/Training Program | DX: G56.01 Carpal tunnel syndrome, right upper limb (principal) | CPT/HCPCS: 99212 ==

== ENCOUNTER → 2022-07-16 00:53 | Outpatient (CLI) | payer MEDICARE, BC, SELFPAY ==
--- NOTE | 2022-07-16 10:15 | DI.DEXA_ITS ---
Exam(s) XR DEXA BONE DENSITY W/WO LILLY EXAM: XR DEXA BONE DENSITY W/WO LILLY CLINICAL HISTORY: osteoporosis,M81.0 TECHNIQUE: COMPARISON: No exams were available for comparison FINDINGS: DEXA scan was performed according to the usual protocol. Please see the accompanying data sheets. F indings for left hip scanning are T-score -0.9 with left femoral neck T-score -1.1. Previous examina tion of July 2010 showed left hip T-score -0.6. Findings for lumbar spine scanning are T-score -1.8. Prior examination of 05/08 showed lumbar T-scor e -2.2. Findings for left forearm scanning are T-score -3.1. Prior examination of 05/08 showed T-score -2.5. IMPRESSION: Measurements are consistent with osteoporosis according to the WHO criteria. The lateral vertebral s canogram shows no evidence of a vertebral compression fracture. RADIATION DOSE DELIVERED: Total DLP
== END ==
PROVIDERS: PCP Family Medicine; Visit Provider Family Medicine
DX: M81.0 Age-related osteoporosis without current pathological fracture (principal); Z13.820 Encounter for screening for osteoporosis
CPT/HCPCS: 77080

== ENCOUNTER → 2022-07-26 09:00 | Outpatient (BNVA) | payer MEDICARE, BC, SELFPAY | PROVIDERS: PCP Family Medicine; Referring Provider Family Medicine; Visit Provider Student in an Organized Health Care Education/Training Program | DX: G56.01 Carpal tunnel syndrome, right upper limb (principal) | CPT/HCPCS: 99213 ==

== ENCOUNTER 2022-11-24 03:43 | Outpatient (RCR) | payer MEDICARE, BC, SELFPAY ==
[2022-11-24] MEDS: Denosumab 60 MG/ML SYR SC (09:44)
== END 2022-12-14 23:59 | disposition home or self-care (01) ==
LOC: INF 03:43
PROVIDERS: PCP Family Medicine; Visit Provider Family Medicine
DX: M81.0 Age-related osteoporosis without current pathological fracture (principal)
CPT/HCPCS: 96372; J0897

== ENCOUNTER 2023-02-16 00:33 | Outpatient (CLI) | payer MEDICARE, BC, SELFPAY ==
--- NOTE | 2023-02-16 | DI.MRI_ITS ---
Exam(s) MR UPPER JOINT RT WO EXAM: MR UPPER JOINT RT WO CLINICAL HISTORY: RT CARPAL TUNNEL SYNDROME, SURGICAL PLANNING, CYSTIC MASS. TECHNIQUE: Multiplanar multisequence MRI was performed. COMPARISON: Comparison examination is 05/17/2022. FINDINGS: BONES: There is again seen moderate increased signal in the hamate trapezium and trapezoid. Subchond ral cysts are seen at multiple articular surfaces in the carpus. All the carpal bones are involved. No evidence to suggest an occult fracture is seen. JOINTS: The radiocarpal joint is unremarkable. Subchondral cysts are seen at multiple levels of the carpal bone. TENDONS: Flexors: Unremarkable. Extensors: Unremarkable. MUSCLES: Unremarkable. MEDIAN NERVE: Unremarkable on this noncontrast examination. ULNAR NERVE: There is no change in appearance of the median nerve in the carpal tunnel. There is mil d enlargement of the nerve but is unchanged. It shows normal signal. SOFT TISSUES: There is a small fluid collection at the anterolateral aspect of the radial carpal join t. It measures 3.8 x 3.36 mm. LIGAMENTS: Unremarkable. TRIANGULAR FIBROCARTILAGE: The ulnar attachment site of the TFCC is poor visualized. This may repres ent a tear. OTHER: IMPRESSION: 1. Stable mild enlargement of the median nerve. No other median nerve abnormality is seen. This is unchanged. 2. Stable subchondral cysts and marrow edema in the carpus. This may be degenerative in nature. Inf lammatory arthritis cannot be excluded. 3. Question of a tiny 3 mm cyst at the anterolateral aspect of the radiocarpal joint. 4. Overall this has a very similar appearance to the MRI of the wrist from 05/17/2022. DATA REPOSITORY:
== END 2023-02-16 00:53 ==
LOC: DI 00:35
PROVIDERS: PCP Family Medicine; Visit Provider Physician Assistant Surgical
DX: G56.03 Carpal tunnel syndrome, bilateral upper limbs (principal)
CPT/HCPCS: 73221

== ENCOUNTER → 2023-03-08 09:27 | Outpatient (BNVA) | payer MEDICARE, BC, SELFPAY | PROVIDERS: PCP Family Medicine; Referring Provider Neurological Surgery; Visit Provider Nurse Practitioner Adult Health | DX: G56.01 Carpal tunnel syndrome, right upper limb (principal) | CPT/HCPCS: 95908; 99214 ==

== ENCOUNTER 2023-06-01 02:32 | Outpatient (RCR) | payer MEDICARE, BC, SELFPAY ==
[2023-06-01] MEDS: Denosumab 60 MG/ML SYR SC (09:38)
== END 2023-06-16 23:59 | disposition home or self-care (01) ==
LOC: INF 02:32
PROVIDERS: PCP Family Medicine; Visit Provider Family Medicine
DX: M81.0 Age-related osteoporosis without current pathological fracture (principal)
CPT/HCPCS: 96372; J0897

== ENCOUNTER 2023-06-10 02:19 | Outpatient (CLI) | payer MEDICARE, BC, SELFPAY ==
[2023-06-10 12:58] LABS: ALT 23 U/L (14-59); AST 15 U/L (15-37); Albumin 3.9 g/dL (3.4-5.0); Alkaline Phosphatase 36 U/L (46-116); Anion Gap 6.2 mmol/L (3-11); BUN 17 mg/dL (7-18); Bilirubin, Total 0.9 mg/dL (0.2-1.0); CO2 29.8 mmol/L (21.0-32.0); CREATININE 0.8 mg/dL (0.55-1.02); Calcium 9.1 mg/dL (8.5-10.1); Calculated LDL 116 mg/dL (<100); Chloride 105 mmol/L (98-107); Cholesterol 193 mg/dL (<200); Estimated GFR 77.75 (mL/min/1.73m2); Glucose 96 mg/dL (74-106); HDL Cholesterol 59 mg/dL (40-60); Potassium 3.9 mmol/L (3.5-5.1); Sodium 141 mmol/L (136-145); Total Protein 7.2 g/dL (6.4-8.2); Triglyceride 90 mg/dL (<150)
[2023-06-10 13:55] LABS: Hemoglobin A1C 5.7 % (<5.7)
== END 2023-06-10 02:20 | disposition home or self-care (01) ==
LOC: LOS 02:20
PROVIDERS: PCP Family Medicine; Visit Provider Family Medicine
DX: E11.9 Type 2 diabetes mellitus without complications (principal); I10 Essential (primary) hypertension
CPT/HCPCS: 36415; 80053; 80061; 83036

== ENCOUNTER → 2023-06-29 00:58 | Outpatient (CLI) | payer MEDICARE, BC, SELFPAY ==
--- NOTE | 2023-06-29 07:45 | DI.MAMMO_ITS ---
Exam(s) MAMMO SCREENING EXAM: MAMMO SCREENING CLINICAL HISTORY: screening,z12.39. TECHNIQUE: Bilateral full field digital CC and MLO mammographic images were obtained with 3D tomosyn thesis and utilizing computer aided detection (CAD). COMPARISON: Prior mammograms were reviewed. FINDINGS: There has been no significant change in the appearance and distribution of the fibroglandular tissue. Small benign-appearing nodule towards the upper outer quadrant of the left breast is unchanged from p rior mammograms. There are no new spiculated masses nor malignant appearing microcalcification groups. There is no significant architectural distortion nor skin thickening-retraction. IMPRESSION: No radiographic evidence of malignancy. Stable benign-appearing findings. BI-RADS Category 2 - Benign Findings Breast Density - Category C - Heterogeneously dense Breast density Category C or D implies that the patient has dense breast tissue. Dense breast tissue can make it harder to find cancer on a mammogram. Dense breast tissue is also associated with an incr eased risk of breast cancer. This information about the result of the mammogram report was provided to the patient to raise their awareness. Use this report when you speak with the patient about their risks for breast cancer, which includes their family history. At that time, you may recommend additional screening tests (Ultrasoun d or MRI) as these tests may add significant information. A negative radiographic report should not delay biopsy if a dominant or clinically suspicious mass is present. Up to ten percent of cancers are not identified on mammography. A negative report may reinforce clinical impression. Adenosis and dense breasts may obscure an underlying neoplasm. False positive reports average 6 to 10%. Patient will receive a letter notifying them of these results.
== END ==
PROVIDERS: PCP Family Medicine; Visit Provider Family Medicine
DX: Z12.31 Encounter for screening mammogram for malignant neoplasm of breast (principal)
CPT/HCPCS: 77063; 77067

== ENCOUNTER 2023-11-30 02:28 | Outpatient (RCR) | payer MEDICARE, BC, SELFPAY ==
[2023-11-30] MEDS: Denosumab 60 MG/ML SYR SC (10:00)
== END 2023-12-15 23:59 | disposition home or self-care (01) ==
LOC: INF 02:28
PROVIDERS: PCP Family Medicine; Visit Provider Family Medicine
DX: M81.0 Age-related osteoporosis without current pathological fracture (principal)
CPT/HCPCS: 96372; J0897

== ENCOUNTER → 2024-02-22 01:57 | Outpatient (CLI) | payer MEDICARE, BC, SELFPAY ==
--- NOTE | 2024-02-22 09:38 | DI.RAD_ITS ---
Exam(s) XR SHOULDER RT COMPLETE 2+V EXAM: XR SHOULDER RT COMPLETE 2+V CLINICAL HISTORY: r shoulder pain,M25.511. TECHNIQUE: 2D digital imaging was performed of the right shoulder. Five images were obtained. AP, Grashey, Y-view and axillary views were obtained. COMPARISON: No exams were available for comparison FINDINGS: BONES: No acute fracture is present. No bony destructive lesion is seen. JOINTS: No dislocation present. There are degenerative changes seen at the acromioclavicular joint. Glenohumeral joint is fairly well maintained. SOFT TISSUE: The visualized lungs are clear. IMPRESSION: Degenerative changes of the acromioclavicular joint. DATA REPOSITORY: RADIATION DOSE DELIVERED:
== END ==
PROVIDERS: PCP Family Medicine; Visit Provider Family Medicine
DX: M25.511 Pain in right shoulder (principal)
CPT/HCPCS: 73030

== ENCOUNTER 2024-03-26 13:52 | Outpatient (REF) | payer MEDICARE, BC, SELFPAY ==
[2024-03-26 21:55] LABS: Bilirubin Negative (Negative); Blood Trace-lysed (Negative); Clarity Clear (Clear); Glucose Negative (Negative); Ketones Negative (Negative); Leukocyte Esterase Trace (Negative); Nitrite Negative (Negative); Urobilinogen 0.2 mg/dL (Up to 0.2)
[2024-03-26 22:14] LABS: Bacteria Rare HPF (Negative); C & S Indicated? No; Casts Negative LPF (Negative); Crystals Negative HPF (Negative); Epithelial Cells Rare HPF (Negative); Mucus Negative (Negative); RBC 0-2 HPF (0-2); WBC 0-2 HPF (0-5)
== END 2024-03-26 13:53 | disposition home or self-care (01) ==
LOC: LBN 13:52
PROVIDERS: PCP Family Medicine; Visit Provider Family Medicine
DX: R35.0 Frequency of micturition (principal); N76.0 Acute vaginitis
CPT/HCPCS: 81003; 81015; 87480; 87510; 87660

== ENCOUNTER 2024-06-06 02:09 | Outpatient (RCR) | payer MEDICARE, BC, SELFPAY ==
--- OUTSIDE RECORDS SUMMARY | 2024-06-06 02:11 | XMS_ITS | Encounter Summary ---
Author Organization [facility] Address [address] [place] [address] Care Team Providers Care Dry Ice Machine Operator Name Role Phone Bridgette Batista MD Primary Care Provider [phone] Encounter Details Date Type Department Care Team (Late st Contact Info) Description 06/28/2016 Results Only [facility] [phone] Bridgette Batista MD [address] [place] [address] [address] [place] [address] Social History Tobacco Use Types Packs/Day Years Used Date Smoking Tobacco: Never Assessed Sex and Gender Information Value Date Recorded Sex Assigned at Not on file Gender Identity Not on file Sexual Orientation Not on file documented as of this encounter Plan of Treatment Not on file documented as of this encounter Procedures Procedure Name Priority Date/Time Associated Diagnosis Comments PAP TEST- RESULT ONLY Routine 06/28/2016 0:00 EDT documented in this encounter Results * PAP TEST- RESULT ONLY (06/28/2016 0:00 EDT) Pathology Report: CYTOPATHOLOGY REPORT Reports generated via electronic interface contain original data; however they are lacking the format of the original report. Caution should be taken when reading/interpreti ng unformatted reports. Name: ? CHANALINE LOWERY ? Accession #: ? [id number] ? : ? 1950 (Age: 65) ??F ?Collect Date: ? 06/28/2016 ? Location: ? [facility] ? Receive Date: ? 06/29/2016 ? Provider: BRIDGETTE BATISTA MD Copy to: ? Final Report SPECIMEN ADEQUACY ? Satisfactory for Evaluation - transformation zone component present GENERAL CATEGORIZATION ? Negative for Intraepithelial Lesion or Malignancy ?? Menstrual/Pregnanc y Status: ??Post Menopausal Hormonal/Contracep tive status: Premarin Previous Gynecologic Pathology: ASC-US: Last pap Infection History: Pos for HPV: X3 Specimen/Source: ??Pap Test, Cervix/Endocervix, ThinPrep Imaging System with manual evaluation Document reviewed and electronically signed by: ? Roslyn Gutierrez, CT(ASCP) ? Report ??Date: 07/01/2016 12:54 HPV with Pap Test ? Date Ordered: ? 07/01/2016 ? Status: ?? Signed Out ?Date Complete: ? 07/02/2016 ? By: ??System Interface ? Date Reported: ? 07/02/2016 ? Interpretation RESULT: Negative for HPV. No E6 or E7 mRNA is detected from HPV types 16,18,31,33,35, 39,45,51,52,56,58, 59,66, and 68 by chemist assistant mediated amplification. Comments Document reviewed and electronically signed by: ? System Interface ? Report date: 07/02/2016 By the signature above, the attending physician certifies that he/she has personally conducted a gross and/or microscopic examination of the described specimens and rendered or confirmed the above diagnosis. End of Report [facility] 06/28/2016 06/29/2016 Bridgette Batista MD PATHOLOGY ORDERABLE S [facility] [address] [place] [address] documented in this encounter Visit Diagnoses Not on filedocumented in this encounter Care Teams Dry Ice Machine Operator Relationship Specialty Start Date End Date Bridgette Batista MD PCP - General 03/10/16 documented as of this encounter
--- OUTSIDE RECORDS SUMMARY | 2024-06-06 02:11 | XMS_ITS | Encounter Summary ---
Author Organization [facility] Address [address] [place] [address] Care Team Providers Care Bleach Packer Name Role Phone Unavailable Primary Care Provider Unavailabl e Encounter Details Date Type Department Care Team (Late st Contact Info) Description 04/16/2002 Results Only [facility] [address] [place] [address] Venkatesh Zamora MD [address] [place] [address] Social History Tobacco Use Types Packs/Day Years Used Date Smoking Tobacco: Never Assessed Sex and Gender Information Value Date Recorded Sex Assigned at Not on file Gender Identity Not on file Sexual Orientation Not on file documented as of this encounter Plan of Treatment Not on file documented as of this encounter Procedures Procedure Name Priority Date/Time Associated Diagnosis Comments CYTOPATHOLOGY Routine 04/16/2002 0:00 EDT documented in this encounter Results * CYTOPATHOLOGY (04/16/2002 0:00 EDT) Pathology Report: CYTOPATHOLOGY REPORT Reports generated via electronic interface contain original data; however they are lacking the format of the original report. Caution should be taken when reading/interpreti ng unformatted reports. Name: ? CHANTANIAGuillaume Artis ? Accession #: ? [id number] : ? 1950 (Age: 51) ??F ?Collect Date: ? 04/16/2002 Location: ? [facility] ? Receive Date: ? 04/18/2002 Provider: ?VENKATESH ZAMORA MD Copy to: ? Specimen/Source: ?ThinPrep Pap Test, Cervix/Endocervix Last Menstrual Period: ? Other: ? Post menopausal bleeding ? SPECIMEN ADEQUACY ? Unsatisfactory for Evaluation, - insufficient numbers of squamous epithelial cells (less than 10% of expected cellularity) - sample preparation compromised by excessive blood GENERAL CATEGORIZATION ? Specimen processed and examined, but unsatisfactory for evaluation of epithelial abnormality. Recommend repeat Pap test or further follow up, as clincially indicated. ? Document reviewed and electronically signed by: ? SEBASTIÁN AUSTIN MD ? Report Date: ??05/01/2002 08:28 End of Report [facility] 04/16/2002 04/18/2002 Venkatesh Zamora MD PATHOLOGY ORDERABLES Performing Organization Address City/State/[facility] Co de Phone Number [facility] [address] [place] [address] documented in this encounter Visit Diagnoses Not on filedocumented in this encounter
--- OUTSIDE RECORDS SUMMARY | 2024-06-06 02:11 | XMS_ITS | Encounter Summary ---
Author Organization [place] [address] Care Team Providers Care Sizer Machine Name Role Phone Bridgette Batista MD Primary Care Provider [phone] Encounter Details Date Type Department Care Team (Latest Contact Info) Description 10/07/2023 Travel Social History Tobacco Use Types Packs/Day Years Used Date Smoking Tobacco: Never Smokeless Tobacco: Never Alcohol Use Standard Drinks/Week Comments Yes 7 (1 standard drink = 0.6 oz pur e alcohol) 1 glass of wine in the evening IPV Inpatient Questions Answer Date Recorded Does Anyone Try to Keep You From Having Contact with Others or Doing Things Outside Your Home? no 08/24/2023 Feels Threatened by Someone no 05/2023 Feels Unsafe at Home or Work/School no 08/24/2023 Physical Signs of Abuse Present no 08/24/2023 Sex and Gender Information Value Date Recorded Sex Assigned at Not on file Gender Identity Not on file Sexual Orientation Not on file documented as of this encounter Plan of Treatment Not on file documented as of this encounter Visit Diagnoses Not on filedocumented in this encounter Care Teams Sizer Machine Relationship Specialty Start Date End Date Bridgette Batista MD [address] [place] [address] PCP - General Family Medicine 08/26/22 documented as of this encounter
--- OUTSIDE RECORDS SUMMARY | 2024-06-06 02:11 | XMS_ITS | Encounter Summary ---
Author Organization [facility] Address [address] [place] [address] Care Team Providers Care Shredded Filler Cutter Operator Name Role Phone Unknown, Provider Primary Care Provider [phone] Encounter Details Date Type Department Care Team (Late st Contact Info) Description 09/30/2015 Results Only [facility] [phone] Bridgette Batista MD [address] [place] [address] Social History Tobacco Use Types [...] Diagnosis Comments PAP TEST- RESULT ONLY Routine 09/30/2015 0:00 EST documented in this encounter Results * PAP TEST- RESULT ONLY (09/30/2015 0:00 EST) Pathology Report: CYTOPATHOLOGY REPORT Reports generated via electronic interface contain original data; however they are lacking the format of the original report. Caution should be taken when reading/interpreti ng unformatted reports. Name: ? LAINE CHAN ? Accession #: ? [id number] ? : ? 1950 (Age: 64) ??F ?Collect Date: ? 09/30/2015 ? Location: ? [facility] ? Receive Date: ? 10/01/2015 ? Provider: BRIDGETTE BATISTA MD Copy to: ? Final Report SPECIMEN ADEQUACY ? Satisfactory for Evaluation - transformation zone component present GENERAL CATEGORIZATION ? Negative for Intraepithelial Lesion or Malignancy ?? Menstrual/Pregnanc y Status: ??Post Menopausal Previous Gynecologic Pathology: HPV: + 09/2014, 01/2015 Other: Additional clinical information: Neg pap 09/2014, 01/2015 Specimen/Source: ??Pap Test, Cervix/Endocervix, ThinPrep Imaging System with manual evaluation Document reviewed and electronically signed by: ? LEÓN Kerr(ASCP) ? Report ??Date: 10/03/2015 14:44 HPV with Pap Test ? Date Ordered: ? 10/03/2015 ? Status: ?? Signed Out ?Date Complete: ? 10/07/2015 ? By: ??System Interface ? Date Reported: ? 10/07/2015 ? Interpretation RESULT: Positive for high or intermediate risk HPV. E6 OR E7 mRNA from one or more types of HPV types 16,18,31, 33,35,39,45,51,52, 56,58,59,66, and 68 is detected by automobile mechanic mediated amplification. High and intermediate risk HPV types are associated with most squamous intraepithelial lesions and cervical cancers. Comments Document reviewed and electronically signed by: ? System Interface ? Report date: 10/07/2015 By the signature above, the attending physician certifies that he/she has personally conducted a gross and/or microscopic examination of the described specimens and rendered or confirmed the above diagnosis. End of Report [facility] 09/30/2015 10/01/2015 Bridgette Batista MD PATHOLOGY ORDERABLE S Performing Organization Address City/State/[place] Co de Phone Number [facility] [address] [place] [address] documented in this encounter Visit Diagnoses Not on filedocumented in this encounter Care Teams Shredded Filler Cutter Operator Relationship Specialty Start Date End Date Unknown, Provider, PCP - General 08/26/15 03/09/16 documented as of this encounter
--- OUTSIDE RECORDS SUMMARY | 2024-06-06 02:11 | XMS_ITS | Encounter Summary ---
Author Organization [facility] Address [facility] [place] [address] Care Team Providers Care Freight Rate Clerk Name Role Phone Bridgette Batista MD Primary Care Provider [phone] Encounter Details Date Type Department Care Team (Late st Contact Info) Description 10/07/2023 10:40 AM EST Office Visit Neurosurgery at [facility] [place] [address] Niesha Alvarez MD [facility] [place] [address] Carpal tunnel syndrome, bilateral Social History Tobacco Use Types Packs/Day Years Used Date Smoking Tobacco: Never Smokeless Tobacco: Never Tobacco Cessation:Counseling Given: Not Answered Alcohol Use Standard Drinks/Week Comments Yes 7 (1 standard drink = 0.6 oz pur e alcohol) 1 glass of wine in the evening [facility] Inpatient Questions Answer Date Recorded Does Anyone [...] on file documented as of this encounter Last Filed Vital Signs Vital Sign Reading Time Taken Comments Blood Pressure 159/67 10/07/2023 10:31 AM EST Pulse 52 10/07/2023 10:31 AM EST Temperature 36.2 ??C (97.1 ??F) 10/07/2023 1 0:31 AM EST Respiratory Rate 16 10/07/2023 10:3 1 AM EST Oxygen Saturation 97% 10/07/2023 10: 31 AM EST Inhaled Oxygen Concentration - - Weight 70.2 kg (154 lb 12.8 oz) 023 10:31 AM EST Height 160.6 cm (5' 3.23) 10/07/2023 1 0:31 AM EST Body Mass Index 27.22 10/07/2023 10:31 AM EST documented in this encounter Progress Notes * Niesha Alvarez MD - 10/07/2023 10:40 AM EST It was a pleasure to meet with Laine Streeter in follow-up today. Ms. Streeter is a 72 y.o. woman whom I am following for recurrent right carpal tunnel syndrome. She underwent re-do carpal tunnel release with me on 08/24/2023. She is returning for scheduled post-operative follow-up. 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 She relates that since surgery she has experienced improvement in the sensation of her middle finger and pointer finger, exceptat the tip. There is no pain keeping her up at night. She also believes the hand is stronger. On exam, she has a well-healed garsia incision with a single vicryl suture spitting out. She has 5/5 FDS on the right, 5/5 OP, 5/5 FDIO, and 4/5 5/5 APB. Her sensation to LT is diminished at the pointer finger past the distal joint. She continues to have the bulge near the proximal wrist crease. Overall, she is recovering well from surgery and enjoying some benefit. She is inquiring about timing of surgery on the left hand, and I have advised her to call me when she is ready. I offered her areferral to OT today and she declined. She has some putty at home which she can use. Plan: Follow-up as needed for left CTR documented in this encounter Plan of Treatment Not on file documented as of this encounter Visit Diagnoses Diagnosis Carpal tunnel syndrome, bilateral Carpal tunnel syndrome documented in this encounter Care Teams Freight Rate Clerk Relationship Specialty Start Date End Date Bridgette Batista MD [address] [place] [address] PCP - General Family Medicine 08/26/22 documented as of this encounter
--- OUTSIDE RECORDS SUMMARY | 2024-06-06 02:11 | XMS_ITS | Encounter Summary ---
Author Organization [facility] Address [address] [place] [address] Care Team Providers Care Cementer Machine Name Role Phone Unavailable Primary Care Provider Unavailabl e Encounter Details Date Type Department Care Team (Late st Contact Info) Description 05/06/2008 Before PRISM Converted Visit (Maple) [facility] - Maple conversion [address] [place] [address] Venkatesh Zamora MD [address] [place] [address] [place] [phone] Social History Tobacco Use Types Packs/Day Years Used Date Smoking Tobacco: Never Assessed Sex and Gender Information Value Date Recorded Sex Assigned at Not on file Gender Identity Not on file Sexual Orientation Not on file documented as of this encounter Plan of Treatment Not on file documented as of this encounter Procedures Procedure Name Priority Date/Time Associated Diagnosis Comments CYTOPATHOLOGY Routine 05/06/2008 0:00 EDT documented in this encounter Results * CYTOPATHOLOGY (05/06/2008 0:00 EDT) Pathology Report: CYTOPATHOLOGY REPORT ? Reports generated via electronic interface contain original data; ? however they are lacking the format of the original report. ? Caution should be taken when reading/interpreti ng unformatted reports. ? Name: ? LAINE CHAN ? Accession #: ? [id number] ? : ? 1950 (Age: 57) ??F ?Collect Date: ? 05/06/2008 ? Location: ? [facility] ? Receive Date: ? 05/06/2008 ? Provider: ?VENKATESH ZAMORA MD ? Copy to: ? Specimen/Source: ?ThinPrep Pap Test, Cervix/Endocervix, processed on Cytyc ThinPrep Imaging System, with manual evaluation ? Last Menstrual Period: ? 2000 ? Other: ? Additional clinical information: Nl exam ? SPECIMEN ADEQUACY ? Satisfactory for Evaluation ? - transformation zone component present ? GENERAL CATEGORIZATION ? Negative for Intraepithelial Lesion or Malignancy ? Document reviewed and electronically signed by: ? Herrera Stumler, CT(ASCP) ? Report Date: ??05/10/2008 16:04 ? End of Report ? CLAY MOSHER 05/06/2008 05/06/2008 Venkatesh Zamora MD PATHOLOGY ORDERABLES Performing Organization Address City/State/[facility] Co de Phone Number CLAY MOSHER [address] [place] [address] documented in this encounter Visit Diagnoses Not on filedocumented in this encounter
--- OUTSIDE RECORDS SUMMARY | 2024-06-06 02:11 | XMS_ITS | Encounter Summary ---
Author Organization [facility] Address [facility] [place] [address] Care Team Providers Care Special Forces Officer Name Role Phone Bridgette Batista MD Primary Care Provider [phone] Encounter Details Date Type Department Care Team (Late st Contact Info) Description 01/10/2023 [place] [phone] Niesha Alvarez MD [facility] [place] [address] Social History Tobacco Use Types Packs/Day Years Used Date Smoking Tobacco: Never Assessed Sex and Gender Information Value Date Recorded Sex Assigned at Not on file Gender Identity Not on file Sexual Orientation Not on file documented as of this encounter Miscellaneous Notes * Telephone Encounter - Izabela Alvarado R - 03/18/2023 11:[address] Alvarez, Please place order for surgery. Thank you, Rebeka * Telephone Encounter - Izabela Alvarado - 03/17/2023 11:49 AM EDT Spoke to Cj at [facility]. Going to fax EMG order to [facility] Once in eDH please IB Tiki to schedule surgery?? * Telephone Encounter - Izabela Alvarado R - 03/15/2023 12:43 PM EDT Sent 3rd request for EMG report to [facility] medical records.? Once in eDH please AMARILYS [place] to schedule surgery? Postponing 2 day to f/u on results * Telephone Encounter - Izabela Alvarado - 03/11/2023 12:25 PM EDT Sent 2nd request for EMG report to [facility] medical records. ?? Once in eDH please AMARILYS [place] to schedule surgery? Postponing 2 day to f/u on results * Telephone Encounter - Izabela Alvarado - 03/09/2023 1:17 PM EDT Sent request for EMG report to [facility] medical records. Once in eDH please AMARILYS [place] to schedule surgery Postponing 2 day to f/u on results * Telephone Encounter - Izabela Alvarado - 02/17/2023 3:46 PM EDT EMG is scheduled 03/08 at [facility] ?? Postponing until 03/09 to rrequest EMG. Once in eDH please AMAR[place]YS [place] to schedule surgery * Telephone Encounter - Izabela Alvarado - 02/02/2023 3:59 PM EDT Spoke to the pt MRI scheduled on 02/16 at [facility] EMG is scheduled 03/08 at [facility] Postponing until 02/17 to request imaging * Telephone Encounter - Izabela Alvarado - 01/24/2023 12:40 PM EDT Spoke to [facility] radiology. Pt was scheduled but now order is in pending. Advised to contact pt to find out the status of imaging. Spoke to gretta at [facility] neurology. Pt has not scheduled yet for EMG. Gretta to contact [facility] office if no order received. Spoke to pt. She is going to reach out to schedule both MRI and EMG at [facility] Postponing 1 wk to f/u on MRI and EMG * Telephone Encounter - Izabela Alvarado - 01/17/2023 3:07 PM EDT Sent MRI wrist, shalomos, DH screening questions to [facility] [[phone]] Sent referral to [facility] neurology through eDH Postponing 1 wk to f/u on imaging and EMG status * Telephone Encounter - Izabela Alvarado - 01/17/2023 2:42 PM EDT Chao, Can you please change MRI order to external as pt would like to complete at [facility]. Can you also place neurology referral as pt would like to complete EMG at [facility] as well. Thank you, Izabela * Telephone Encounter - Dana Neal - 01/10/2023 12:15 PM EDT RN, Please put in MRI Right wrist without contrast for Dr. Alvarez. Thanks, Dana Send IB message to Dr. Alvarez once MRI is completed and EMG at [facility] is completed in edh. Schedule for Surgery with Dr. Hoover. Copying Christine on this message. ~~~~~~~~~~~~~~~~~~~~~~~~~~~~~~~ Laine Streeter - 12/31/22 Niesha Alvarez MD Sent: Mary January 09, 2023 11:31 AM To: P [facility] Neurosurgery [place] ?? Message Plan; 1. ??MRI of the right wrist without contrast. 2. ??Repeat EMG of the right upper extremity 3. ??OR for open right carpal tunnel release, fat grafting of the median nerve with Dr. Hoover Thank you, Aiyana documented in this encounter Plan of Treatment Not on file documented as of this encounter Visit Diagnoses Not on filedocumented in this encounter Care Teams Special Forces Officer Relationship Specialty Start Date End Date Bridgette Batista MD [address] [place] [address] PCP - General Family Medicine 08/26/22 documented as of this encounter
--- OUTSIDE RECORDS SUMMARY | 2024-06-06 02:11 | XMS_ITS | Encounter Summary ---
Author Organization [facility] [place] [address] Care Team Providers Care Operational Test Mechanic Name Role Phone Bridgette Batista MD Primary Care Provider [phone] Encounter Details Date Type Department Care Team (Latest Contact Info) Description 09/05/2023 Travel Social History Tobacco Use Types Packs/Day [...] on filedocumented in this encounter Care Teams Operational Test Mechanic Relationship Specialty Start Date End Date Bridgette Batista MD [address] [place] [address] PCP - General Family Medicine 08/26/22 documented as of this encounter
--- OUTSIDE RECORDS SUMMARY | 2024-06-06 02:11 | XMS_ITS | Encounter Summary ---
Author Organization [facility] Address [address] [place] [address] Care Team Providers Care Sand Caster Name Role Phone Unavailable Primary Care Provider Unavailabl e Encounter Details Date Type Department Care Team (Late st Contact Info) Description 07/30/[address] [facility] - Map conversion [address] [place] [address] Venkatesh Zamora MD [address] [facility] [place] [address] Social History Tobacco Use Types [...] Priority Date/Time Associated Diagnosis Comments CYTOPATHOLOGY Routine 07/30/2002 0:00 EDT documented in this encounter Results * CYTOPATHOLOGY (07/30/2002 0:00 EDT) Pathology Report: CYTOPATHOLOGY REPORT Reports generated via electronic interface contain original data; however they are lacking the format of the original report. Caution should be taken when reading/interpreti ng unformatted reports. Name: ? CHAN LAINE J ? Accession #: ? [id number] : ? 1950 (Age: 51) ??F ?Collect Date: ? 07/30/2002 Location: ? [facility] ? Receive Date: ? 08/01/2002 Provider: ?VENKATESH ZAMORA MD Copy to: ? Specimen/Source: ?ThinPrep Pap Test, Cervix/Endocervix Last Menstrual Period: ? Menstrual/Pregnanc y Status: ? Amenorrhea ? SPECIMEN ADEQUACY ? Satisfactory for Evaluation - transformation zone component present GENERAL CATEGORIZATION ? Negative for Intraepithelial Lesion or Malignancy ? Document reviewed and electronically signed by: ? LEÓN Harper(ASCP) ? Report Date: ??08/06/2002 12:17 End of Report CLAY MOSHER 07/30/2002 08/01/2002 Venkatesh Zamora MD PATHOLOGY ORDERABLES CLAY MOSHER [address] [place] [address] documented in this encounter Visit Diagnoses Not on filedocumented in this encounter
--- OUTSIDE RECORDS SUMMARY | 2024-06-06 02:11 | XMS_ITS | Clinical Summary ---
Author Organization [facility] Address [address] [place] [address] Care Team Providers Care Report Analyst Name Role Phone Bridgette Batista MD Primary Care Provider [phone] Social History Tobacco Use Types Packs/Day Years Used Date Smoking Tobacco: Never Assessed Sex and Gender Information Value Date Recorded Sex Assigned at Not on file Gender Identity Not on file Sexual Orientation Not on file Plan of Treatment Health Maintenance Due Date Last Done Comments Hepatitis C Screen 1950 RSV Immunization ( o r 60+ Years) (1 - 1-dose 60+ series) 2009 Fall Risk Screening 2014 COVID-19 Vaccine (2022-24 season) 2023 Care Teams Report Analyst Relationship Specialty Start Date End Date Bridgette Batista MD PCP - General 03/10/16
--- OUTSIDE RECORDS SUMMARY | 2024-06-06 02:11 | XMS_ITS | Encounter Summary ---
Author Organization [facility] Address [facility] [place] [address] Care Team Providers Care Stop Attacher Name Role Phone Bridgette Batista MD Primary Care Provider [phone] Reason for Referral * Consultation (Routine) - Closed Specialty Diagnoses / Procedures Referred By Elysia barajas Referred To Contact Diagnoses Carpal tunnel syndrome on right Ryley Hoover MD [facility] [place] [address] Unknown None Referral ID Status Reason Start Date Expiration Date V isits Requested Visits Authorized [id number] Closed Consult, Test & Treat 12/31/2022 06/29/2023 1 1 Encounter Details Date Type Department Care Team (Late st Contact Info) Description 12/31/2022 1:30 PM EDT Office [place] [address] Ryley Hoover MD [facility] [address] Carpal tunnel syndrome on right Social History Tobacco Use Types Packs/Day Years Used Date Smoking Tobacco: Never Assessed Sex and Gender Information Value Date Recorded Sex Assigned at Not on file Gender Identity Not on file Sexual Orientation Not on file documented as of this encounter Progress Notes * Yolanda Royal - 12/31/2022 1:30 PM EDT Plastic Surgery Hand Consultation Note Ryley Hoover M.D. I have been asked to see the patient by Duane Del Angel. CC: Hand numbness HPI: Laine Streeter is a 72 y.o. female who presents with numbness of her right wrist. She reportsthat she is s/p right carpal tunnel release on 01/05/22. She reports that she has a lump on her wrist that is filled with fluid. She has had an ultrasound for this. She reports that the pain was relieved from surgery but the numbness has worsened. She does not recall that the numbness was as bad prio r to surgery. She has not had repeat EMG studies. She reports that she is quite healthy. No past medical history on file. No past surgical history on file. Social History Socioeconomic History ??? Marital status: Spouse name: Not on file ??? Number of children: Not on file ??? Years of education: Not on file ??? Highest education level: Not on file Occupational History ??? Not on file Tobacco Use ??? Smoking status: Not on file ??? Smokeless tobacco: Not on file Substance and Sexual Activity ??? Alcohol use: Not on file ??? Drug use: Not on file ??? Sexual activity: Not on file Other Topics Concern ??? Not on file Social History Narrative ??? Not on file Social Determinants of Health Financial Resource Strain: Not on file Food Insecurity: Not on file Transportation Needs: Not on file Physical Activity: Not on file Housing Stability: Not on file No Known Allergies Current Outpatient Medications on File Prior to Visit Medication Sig Dispense Refill ??? atorvastatin (LIPITOR) 40 mg tablet 40MG, PO, QPM No current facility-administered medications on file prior to visit. Examination: Alert, oriented, conversant, and ambulating In no acute distress RHD Some atrophy of thenar eminence -Phalen's +tinel's at wrist crease FDI and ADM 4/5 opponens 5/5 FDI 5/5 thumb extension 5/5 wrist extension Tip of thumb, ring, and little fingers are numb Fluid pocket measures 2x2 cm over median nerve Impression: Laine Streeter is a 72 y.o. female patient with right carpal tunnel syndrome. We discussed potential treatment options to address excessive swelling in the flexor tendons at the wrist, including steroid injections or surgical release Although steroids are effective at reducing tendon inflammation, they are temporary and gone from the system after 6 weeks. Symptoms can then return at this time if tendon swelling returns. We also discussed surgical decompression of the median nerve. This procedure can be done under either a local or general anesthetic. Following surgery the patient can use their hands but should avoidheavy direct pressure to their incision line (push ups, yoga) for 3 weeks. Other options is to proceed with fat grafting, harvesting fat from abdominal area and placing fat around the nerves. Plan: Obtain MRI from [facility]. Repeat EMG studies. To be done at [facility]. Potential Surgical Grid Duration: 2.5 hours Timeframe: elective- () Coordinated with: Antonio Procedure: fat grafting, CTR, allograft CPT: 30452, 24195, 25114, 07091 Surgical site: abdomen, thumb Side: right Anesthesia: General Follow up: 14 Days PAT: H+P DOS Microscope, allograft 2mm, 50 mm long Yolanda Vazquez am acting as scribe for Dr. Ryley Hoover. All work documented was performed by Dr. Hoover. documented in this encounter Plan of Treatment Scheduled Referrals Name Type Priority Associated Diagnoses Orde r Schedule Referral to Neurology Outpatient Referral Routine Carpal tunnel syndrome on right Ordered: 12/31/2022 documented as of this encounter Visit Diagnoses Diagnosis Carpal tunnel syndrome on right Carpal tunnel syndrome documented in this encounter Care Teams Stop Attacher Relationship Specialty Start Date End Date Bridgette Batista MD [address] [place] [address] PCP - General Family Medicine 08/26/22 documented as of this encounter
--- OUTSIDE RECORDS SUMMARY | 2024-06-06 02:11 | XMS_ITS | Encounter Summary ---
Author Organization [facility] Address [facility] [place] [address] Care Team Providers Care Child Support Investigator Name Role Phone Bridgette Batista MD Primary Care Provider [phone] Reason for Referral * Consultation (Routine) - Closed Specialty Diagnoses / Procedures Referred By Elysia barajas Referred To Contact Diagnoses Carpal tunnel syndrome, bilateral Chao Cotton PA [facility] [place] [place] [address] Neurology, [address] [phone] Referral ID Status Reason Start Date Expiration Date V isits Requested Visits Authorized [id number] Closed Consult, Test & Treat 01/17/2023 07/16/2023 1 1 Encounter Details Date Type Department Care Team (Late st Contact Info) Description 01/17/2023 Orders [place] [address] Chao Cotton PA [facility] [place] [address] Carpal tunnel syndrome, bilateral Social History Tobacco Use Types Packs/Day Years Used Date Smoking Tobacco: Never Assessed Sex and Gender Information Value Date Recorded Sex Assigned at Not on file Gender Identity Not on file Sexual Orientation Not on file documented as of this encounter Plan of Treatment Scheduled Referrals Name Type Priority Associated Diagnoses Orde r Schedule Referral to Neurology Outpatient Referral Routine Carpal tunnel syndrome, bilateral Ordered: 01/17/2023 documented as of this encounter Visit Diagnoses Diagnosis Carpal tunnel syndrome, bilateral Carpal tunnel syndrome documented in this encounter Care Teams Child Support Investigator Relationship Specialty Start Date End Date Bridgette Batista MD [address] [facility] [address] [place] [address] PCP - General Family Medicine 08/26/22 documented as of this encounter
--- OUTSIDE RECORDS SUMMARY | 2024-06-06 02:11 | XMS_ITS | Encounter Summary ---
Author Organization [facility] Address [facility] [place] [address] Care Team Providers Care Tableman Name Role Phone Bridgette Batista MD Primary Care Provider [phone] Encounter Details Date Type Department Care Team (Late st Contact Info) Description 12/31/2022 1:00 PM EDT Office Visit Neurosurgery at [facility], operated [place] [address] Niesha Alvarez MD [facility] [place] [address] Carpal tunnel syndrome, bilateral Social History Tobacco Use Types Packs/Day Years Used Date Smoking Tobacco: Never Assessed Sex and Gender Information Value Date Recorded Sex Assigned at Not on file Gender Identity Not on file Sexual Orientation Not on file documented as of this encounter Progress Notes * Niesha Alvarez MD - 12/31/2022 1:00 PM EDT Neurosurgery Consultation 01/09/2023 Laine Streeter [phone] CC: Bilateral carpal tunnel syndrome HPI: It was a pleasure to meet Laine Streeter at the request of None regarding bilateral carpal tunnel syndrome. Ms. Streeter is a 72-year-old woman who presents with bilateral carpal tunnel syndrome, status post right carpal tunnel release. She relates that she developed painful numbness and tingling of her hands approximately 1 month ago. The pain is worse at night, and often wakes her from sleep. She was diagnosed with carpal tunnel syndrome, and underwent endoscopic carpal tunnel release in the right wrist with Dr. Del Angel. After surgery, she developed recurrent pain in the hand. In addition, she developed a cystic bulge in the proximal wrist. She states that she has an ultrasound study of the cyst, we do not have the results of the study. She is interested in reexploration of the carpal tunnel, and excision of the cystic structure. PMH/PSH: R endoscopic carpal tunnel release No past medical history on file. No past surgical history on file. Medications: Current Outpatient Medications on File Prior to Visit Medication Sig Dispense Refill ??? atorvastatin (LIPITOR) 40 mg tablet 40MG, PO, QPM No current facility-administered medications on file prior to visit. Allergies: No Known Allergies Family Hx: No family history on file. Social Hx: Non smoker Retired ROS: Constitutional: No recent weight loss / fevers / chills / night sweats. HEENT: No recent visual changes / hearing changes. Cardiovascular: No chest pain / palpitations. Pulmonary: No shortness of breath / cough GI: No abdominal pain / vomiting / change in bowel pattern : No dysuria / urinary retention / urinary incontinence. Physical Exam: Vital Signs: There were no vitals taken for this visit. General: NAD. Alert, oriented, conversant, and ambulating In no acute distress RHD Some atrophy of thenar eminence -Phalen's +tinel's at wrist crease FDI and ADM 4/5 opponens 5/5 FDI 5/5 thumb extension 5/5 wrist extension Tip of thumb, ring, and little fingers are numb Fluid pocket measures 2x2 cm over median nerve Labs: None Imaging: None Assessment and Plan: Ms. Streeter has recurrent right carpal tunnel syndrome, and a cystic mass of unclear significance. She would be reasonable candidate for repeating carpal tunnel release, with an open approach. I suspect that she has developed some scarring of the median nerve, or that her endoscopic release was not complete. This is frequently reported outcome from endoscopic carpal tunnel release. Given the uncertainty of what this cyst represents, we recommended that she undergo MRI of the right wrist to assist with surgical planning. A repeat EMG would also be helpful, and she will arrange to have this donein [place]. Once these additional studies are completed, we can proceed to surgery. Plan; 1. MRI of the right wrist without contrast. 2. Repeat EMG of the right upper extremity 3. OR for open right carpal tunnel release, fat grafting of the median nerve with Dr. Hoover Thank you very much for allowing me to participate in the care of this very nice woman. documented in this encounter Plan of Treatment Not on file documented as of this encounter Visit Diagnoses Diagnosis Carpal tunnel syndrome, bilateral Carpal tunnel syndrome documented in this encounter Care Teams Tableman Relationship Specialty Start Date End Date Bridgette Batista MD [address] [place] [address] [address] [facility] [address] [place] [address] PCP - General Family Medicine 08/26/22 documented as of this encounter
--- OUTSIDE RECORDS SUMMARY | 2024-06-06 02:11 | XMS_ITS | Encounter Summary ---
Author Organization [facility] Address [address] [place] [address] Care Team Providers Care Fire Prevention Research Engineer Name Role Phone Unavailable Primary Care Provider Unavailabl e Encounter Details Date Type Department Care Team (Late st Contact Info) Description 06/17/2010 Results Only [facility] [phone] Tory Romero MD [address] [place] [address] Social History Tobacco Use Types Packs/Day Years Used Date Smoking Tobacco: Never Assessed Sex and Gender Information Value Date Recorded Sex Assigned at Not on file Gender Identity Not on file Sexual Orientation Not on file documented as of this encounter Plan of Treatment Not on file documented as of this encounter Procedures Procedure Name Priority Date/Time Associated Diagnosis Comments CYTOPATHOLOGY Routine 06/17/2010 0:00 EDT documented in this encounter Results * CYTOPATHOLOGY (06/17/2010 0:00 EDT) Pathology Report: CYTOPATHOLOGY REPORT ? Reports generated via electronic interface contain original data; ? however they are lacking the format of the original report. ? Caution should be taken when reading/interpreti ng unformatted reports. ? Name: ? LAINE CHAN ? Accession #: ? [id number] ? : ? 1950 (Age: 59) ??F ?Collect Date: ? 06/17/2010 ? Location: ? [facility] ? Receive Date: ? 06/18/2010 ? Provider: ?TORY ROMERO MD ? Copy to: ? Specimen/Source: ?Pap Test, Cervix/Endocervix, ThinPrep Imaging System ? with manual evaluation ? Last Menstrual Period: ? Other: ? HPVA - HPV testing requested if ASC-US on the current ThinPrep Pap test. ? SPECIMEN ADEQUACY ? Satisfactory for Evaluation ? - transformation zone component present ? GENERAL CATEGORIZATION ? Negative for Intraepithelial Lesion or Malignancy ? Document reviewed and electronically signed by: ? Lynan Phillip, CT(ASCP) ? Report Date: ??06/23/2010 13:33 ? End of Report ? CLAY MOSHER 06/17/2010 06/18/2010 Tory Romero MD PATHOLOGY ORDERABLES Performing Organization Address City/State/[facility] Co de Phone Number CLAY MOSHER [address] [place] [address] documented in this encounter Visit Diagnoses Not on filedocumented in this encounter
--- OUTSIDE RECORDS SUMMARY | 2024-06-06 02:11 | XMS_ITS | Encounter Summary ---
Author Organization [facility] Address [address] [place] [address] Care Team Providers Care Customs Agent Name Role Phone Unknown, Provider Primary Care Provider [phone] Encounter Details Date Type Department Care Team (Latest Contact Info) Description 02/23/2016 8:13 EDT - 02/23/2016 23:59 EDT Hospital Encounter [address] [address] Unknown, Provider, Discharge Disposition: Home or Self Care Social History Tobacco Use Types Packs/Day Years Used Date Smoking Tobacco: Never Assessed Sex and Gender Information Value Date Recorded Sex Assigned at Not on file Gender Identity Not on file Sexual Orientation Not on file documented as of this encounter Discharge Disposition Disposition Code Departure Means Destination Home or Self Long Term documented in this encounter Plan of Treatment Not on file documented as of this encounter Visit Diagnoses Not on filedocumented in this encounter Care Teams Customs Agent Relationship Specialty Start Date End Date Unknown, Provider, PCP - General 08/26/15 03/09/16 documented as of this encounter
--- OUTSIDE RECORDS SUMMARY | 2024-06-06 02:11 | XMS_ITS | Encounter Summary ---
Author Organization [facility] Address [place] [address] Care Team Providers Care Certified Medication Aide Name Role Phone Bridgette Batista MD Primary Care Provider [phone] Encounter Details Date Type Department Care Team (Late st Contact Info) Description 06/29/2023 [place] [id number] Gabino Mari, RN Social History Tobacco Use Types Packs/Day Years Used Date Smoking Tobacco: Never Smokeless Tobacco: Never Alcohol Use Standard Drinks/Week Comments Yes 7 (1 standard drink = 0.6 oz pur e alcohol) 1 glass of wine in the evening Sex and Gender Information Value Date Recorded Sex Assigned at Not on file Gender Identity Not on file Sexual Orientation Not on file documented as of this encounter Progress Notes * Gabino Mari, RN - 06/29/2023 7:29 AM EDT Pt has an open order for MRI Right Wrist ordered 01/14/[address] Alvarez, pt had this imaging completedat outside facility. Asked provider about the open order, her response, NO longer needed Order cancelled. documented in this encounter Plan of Treatment Not on file documented as of this encounter Visit Diagnoses Not on filedocumented in this encounter Care Teams Certified Medication Aide Relationship Specialty Start Date End Date Bridgette Batista MD [address] [place] [address] PCP - General Family Medicine 08/26/22 documented as of this encounter
--- OUTSIDE RECORDS SUMMARY | 2024-06-06 02:11 | XMS_ITS | Encounter Summary ---
Author Organization [facility] Address [facility] [place] [address] Care Team Providers Care Protection Specialist Name Role Phone Bridgette Batista MD Primary Care Provider [phone] Encounter Details Date Type Department Care Team (Latest Contact Info) Description 07/01/2023 8:40 AM EDT TH Visit (TeleHealth) [place] [address] Niesha Alvarez MD [facility] [place] [address] Carpal tunnel syndrome, bilateral (Primary Dx) Social History Tobacco Use Types Packs/Day Years [...] Progress Notes * Niesha Alvarez MD - 07/01/2023 8:40 AM EDT It was a pleasure to speak with Laine Streeter in follow-up today. Ms. Streeter is a 72 y.o. woman whom I am following for recurrent right carpal tunnel syndrome. We are speaking today to follow-up her recent repeat EMG and MRI wrist results. She relates that she continues to have numbness and pain in the right hand, which is waking her up from sleep. She has returned to splinting at night although it does not completely fix the pain. Her 06/17/2023 EMG does confirm recurrent right CTS. Her MRI 02/16/23 demonstrates stable appearance since 05/2022 with median nerve edema. Overall I think that re-do carpal tunnel release makes sense. We discussed risks, benefits and alternatives to surgery and she would like to proceed. I will schedule this in the near future. Plan: OR for open right carpal tunnel release documented in this encounter Plan of Treatment Not on file documented as of this encounter Visit Diagnoses Diagnosis Carpal tunnel syndrome, bilateral- Primary Carpal tunnel syndrome documented in this encounter Care Teams Protection Specialist Relationship Specialty Start Date End Date Bridgette Batista MD [address] [place] [address] PCP - General Family Medicine 08/26/22 documented as of this encounter
--- OUTSIDE RECORDS SUMMARY | 2024-06-06 02:11 | XMS_ITS | Clinical Summary ---
Author Organization [facility] Address [facility] [place] [address] Care Team Providers Care Funnel Coater Name Role Phone Bridgette Batista MD Primary Care Provider [phone] Allergies Active Allergy Reactions Criticality Noted Date Comments Lisinopril 06/27/2023 Makes her cough Medications Medication Sig Dispensed Refills Start Date End Date Status atorvastatin (Lipitor) 20 mg tablet Take 40 mg by mouth daily. 05/26/2023 Active estradioL (ESTRACE) 0.01 % (0.1 mg/gram) Cream Place vaginally twice a week. 01/27/2023 Active losartan (Cozaar) 100 mg tablet Take 100 mg by mouth daily. 05/31/2023 Active Calcium Carbonate (Calcium 600) 600 mg calcium (1,500 mg) Tablet Take 600 mg by mouth 2 times daily. Active [id number]-rwc-epa-lut-z eaxanthin 250-2.5-0.5 mg Capsule Take 1 capsule by mouth daily. Active Active Problems Problem Noted Date Diagnosed Date Carpal tunnel syndrome, bilateral 01/09/2023 Social History Tobacco Use Types Packs/Day Years [...] on file Sexual Orientation Not on file Last Filed Vital Signs Vital Sign Reading [...] Mass Index 27.22 10/07/2023 10:31 AM EST Plan of Treatment Health Maintenance Due Date Last Done Comments CT Colonography 1950 Colonoscopy 1950 Colorectal Cancer Screening 1950 FIT DNA 1950 FIT 1950 Sigmoidoscopy (10 year) with FIT yearly 1950 Sigmoidoscopy 1950 Hepatitis C Screening 1967 Tdap adult 1968 Tetanus vaccine 1968 Breast Cancer Share Decision Needed 1989 Breast Cancer screening 1989 Zoster vaccine (1 of 2) 1999 Advance Directive 2004 Bone Density Scan 2014 Pneumoccocal Vaccine: 65+ (1 of 1 - PCV) 2014 Covid-19 Vaccine (1 - season) 2023 Influenza (Flu) vaccine (1 o f 1 - Influenza standard series) 06/17/2024 Care Teams Funnel Coater Relationship Specialty Start Date End Date Bridgette Batista MD [address] [place] [address] PCP - General Family Medicine 08/26/22
--- OUTSIDE RECORDS SUMMARY | 2024-06-06 02:11 | XMS_ITS | Encounter Summary ---
[place] [address] Care Team Providers Care Manuscripts Curator Name Role Phone Bridgette Batista MD Primary Care Provider [phone] Encounter Details Date Type Department Care Team (Late st Contact Info) Description 01/10/2023 [place] [address] Rajat Saleh, RN Carpal tunnel syndrome, bilateral Social History Tobacco [...] syndrome documented in this encounter Care Teams Manuscripts Curator Relationship Specialty Start Date End Date Bridgette Batista MD [address] [place] [address] PCP - General Family Medicine 08/26/22 documented as of this encounter
--- OUTSIDE RECORDS SUMMARY | 2024-06-06 02:11 | XMS_ITS | Referral Summary ---
Author Organization [facility] Address [address] [place] [address] Care Team Providers Care Newspaper Carrier Name Role Phone Bridgette Batista MD Primary Care Provider [phone] Social History Tobacco Use Types Packs/Day Years Used Date Smoking Tobacco: Never Assessed Sex and Gender Information Value Date Recorded Sex Assigned at Not on file Gender Identity Not on file Sexual Orientation Not on file Plan of Treatment Not on file Care Teams Newspaper Carrier Relationship Specialty Start Date End Date Bridgette Batista MD PCP - General 03/10/16
--- OUTSIDE RECORDS SUMMARY | 2024-06-06 02:11 | XMS_ITS | Encounter Summary ---
Author Organization [facility] [place] [address] Care Team Providers Care Driver Trainee Name Role Phone Bridgette Batista MD Primary Care Provider [phone] Encounter Details Date Type Department Care Team (Late st Contact Info) Description 02/16/2023 Ancillary Procedure Radiology Library at [facility] [place] [address] Bridgette Batista MD [address] [place] [address] [address] [place], [place] [id number] Social History Tobacco Use Types Packs/Day Years Used Date Smoking Tobacco: Never Assessed Sex and Gender Information Value Date Recorded Sex Assigned at Not on file Gender Identity Not on file Sexual Orientation Not on file documented as of this encounter Plan of Treatment Not on file documented as of this encounter Procedures Procedure Name Priority Date/Time Associated Diagnosis Comments FILM LIBRARY STORAGE ONLY MR UPPER EXTREMITY Routine 02/16/2023 12:00 AM EDT documented in this encounter Results * Film Library- Storage Only MR Upper Extremity (02/16/2023 12:00 AM EDT) Narrative RAD - 02/17/2023 5:45 AM EDT This exam is auto-finalizing. It's purpose is for storage only. Bridgette Batista MD [facility] FILM LIBRARY ORD ERABLES [place], [place] documented in this encounter Visit Diagnoses Not on filedocumented in this encounter Care Teams Driver Trainee Relationship Specialty Start Date End Date Bridgette Batista MD [address] [place] [address] PCP - General Family Medicine 08/26/22 documented as of this encounter
--- OUTSIDE RECORDS SUMMARY | 2024-06-06 02:11 | XMS_ITS | Encounter Summary ---
[place] [address] Care Team Providers Care Assembler Aircraft Power Plant Name Role Phone Bridgette Batista MD Primary Care Provider [phone] Reason for Referral * Consultation (Routine) - Closed Specialty Diagnoses / Procedures Referred By Elysia t Referred To Contact Neurosurgery Diagnoses Carpal tunnel syndrome on right Bridgette Batista MD [address] [place] [address] [facility] Neurosurgery [address] [place] [id number] Referral ID Status Reason Start Date Expiration Date V isits Requested Visits Authorized [id number] Closed Consult, Test & Treat PCP Updated and/or Approved 06/14/2023 2023 6 6 Encounter Details Date Type Department Care Team (Late st Contact Info) Description 06/17/2023 Transcribe Orders eDH Incoming Referrals [phone] Bridgette Batista MD [address] [place], [place] [id number] Carpal tunnel syndrome on right Social History Tobacco Use Types Packs/Day Years Used Date Smoking Tobacco: Never Assessed Sex and Gender Information Value Date Recorded Sex Assigned at Not on file Gender Identity Not on file Sexual Orientation Not on file documented as of this encounter Plan of Treatment Scheduled Referrals Name Type Priority Associated Diagnoses Order Schedule Referral to Neurosurgery Outpatient Referral Routine Carpal tunnel syndrome on right Ordered: 06/17/2023 documented as of this encounter Visit Diagnoses Diagnosis Carpal tunnel syndrome on right Carpal tunnel syndrome documented in this encounter Care Teams Assembler Aircraft Power Plant Relationship Specialty Start Date End Date Bridgette Batista MD [address] [facility] [address] [place] [address] PCP - General Family Medicine 08/26/22 documented as of this encounter
--- OUTSIDE RECORDS SUMMARY | 2024-06-06 02:11 | XMS_ITS | Encounter Summary ---
Author Organization [facility] Address [address] [place] [address] Care Team Providers Care Food Processing Scientist Name Role Phone Unknown, Provider Primary Care Provider [phone] Encounter Details Date Type Department Care Team (Late st Contact Info) Description 10/22/2015 Results Only [facility] [phone] Tory Romero MD [address] [place] [address] Social History Tobacco Use Types Packs/Day Years Used Date Smoking Tobacco: Never Assessed Sex and Gender Information Value Date Recorded Sex Assigned at Not on file Gender Identity Not on file Sexual Orientation Not on file documented as of this encounter Plan of Treatment Not on file documented as of this encounter Procedures Procedure Name Priority Date/Time Associated Diagnosis Comments SURGICAL PATHOLOGY Routine 10/22/2015 8:59 EST documented in this encounter Results * SURGICAL PATHOLOGY (10/22/2015 8:59 EST) Pathology Report: SURGICAL PATHOLOGY REPORT Reports generated via electronic interface contain original data; however they are lacking the format of the original report. Caution should be taken when reading/interpreti ng unformatted reports. Name: ? LAINE CHAN ? Accession #: ? [id number] ? : ? 1950 (Age: 64) ??F ? Collect Date: ? 10/22/2015 ? Location: ? [facility] ? Receive Date: ? 10/23/2015 ? Provider: TORY ROMERO MD Copy to: GAVIN DOMINGUEZ MD ? Final Pathologic Diagnosis: ----- A. endocervix, curettage: - ??Benign endocervical glands. B. ectocervix, 1 o'clock, biopsy: - ??Benign squamous mucosa with reactive features including parakeratosis. C. vagina, left wall, biopsy: - ??Squamous mucosa with reactive features including hyperplasia and parakeratosis, mild. - ??No squamous intraepithelial lesion identified. See comment. ___ Comment: ? Deeper levels of C have been examined. Document reviewed and electronically signed by: ISABELA GAMEZ MD Report ??Date: 10/27/2015 13:50 By the signature above, the attending physician certifies that he/she has personally conducted a gross and/or microscopic examination of the described specimens and rendered or confirmed the above diagnosis. Specimen(s) Received: A. ??ECC B. ??Ectocervical biopsy at 1 o'clock pos C. ??L sidewall warty excrescence Clinical History: 09/2015 neg Pap/(+) HR HPV; 2013 neg Pap/(+) HR HPV; for colposcopy Gross Description: A. ?Received in formalin labelled with proper patient identification (initials C, G) and ECC is an aggregate of pretty-white mucinous material (1.5 x 1.5 x 0.4 cm). Submitted in toto in A1 following filtration. B. ?Received in formalin labelled with proper patient identification (initials C, G) and ectocervix 1 o'clock pos is a single antonio-pretty tissue fragment (0.5 x 0.2 x 0.2 cm). Submitted intact in B1. C. ?Received in formalin labelled with proper patient identification (initials C, G) and left vaginal sidewall are three antonio-white tissues (0.1 x 0.1 x 0.1 cm to 0.5 x 0.2 x 0.2 cm). Entirely submitted in C1. Kaylah Flores 10/23/2015 1:09 PM End of Report [facility] 10/22/2015 8:59 EST 10/23/2015 8:59 EST Tory Romero MD PATHOLOGY ORDERABLES Performing Organization Address City/State/[facility] Co de Phone Number [facility] [address] [place] [address] documented in this encounter Visit Diagnoses Not on filedocumented in this encounter Care Teams Food Processing Scientist Relationship Specialty Start Date End Date Unknown, Provider, PCP - General 08/26/15 03/09/16 documented as of this encounter
--- OUTSIDE RECORDS SUMMARY | 2024-06-06 02:11 | XMS_ITS | Encounter Summary ---
Author Organization [facility] Address [facility] [place] [address] Care Team Providers Care Quality Control Chemist Name Role Phone Bridgette Batista MD Primary Care Provider [phone] Encounter Details Date Type Department Care Team (Late st Contact Info) Description 09/05/2023 10:00 AM EST Office Visit Neurosurgery at [facility] [place] [id number] Visit for suture removal Social History Tobacco Use Types Packs/Day Years Used Date Smoking Tobacco: Never Smokeless Tobacco: Never Alcohol Use Standard Drinks/Week Comments Yes 7 (1 standard drink = 0.6 oz pur e alcohol) 1 glass of wine in the evening [facility] Inpatient Questions Answer Date Recorded Does Anyone [...] Sign Reading Time Taken Comments Blood Pressure 156/69 09/05/2023 9:24 AM EST Pulse 51 09/05/2023 9:24 AM EST Temperature 36.4 ??C (97.5 ??F) 09/05/2023 9:24 AM ES T Respiratory Rate 16 09/05/2023 9:24 AM EST Oxygen Saturation 99% 09/05/2023 9:24 AM EST Inhaled Oxygen Concentration - - Weight 70 kg (154 lb 6.4 oz) 09/05/2023 9:24 AM EST Height 167.6 cm (5' 5.98) 09/05/2023 9:24 AM ES T Body Mass Index 24.93 09/05/2023 9:24 AM EST documented in this encounter Progress Notes * Rajat Saleh RN - 09/05/2023 10:00 AM EST Laine Streeter 1950 72 y.o. [id number] Procedures: MEDIAN NERVE DECOMPRESSION (CARPAL TUNNEL RELEASE) (WRVU 4.97) (Right) Laine Streeter is is alert, oriented, and appropriate in NAD. Her speech is clear. Her ambulation is steady with narrow-based gait. She denies feeling lightheaded or dizzy. She SELF well with 5/5 strength in upper and lower extremities. PERRL. Denies diplopia. EOM full without nystagmus. Hearing is intact. Facial features are symmetrical. Denies pain. Incision is well healed with skin edges well approximated. All sutures were removed. Current Outpatient Medications: Current Outpatient Medications: atorvastatin (Lipitor) 20 mg tablet, Take 40 mg by mouth daily., Disp: , Rfl: estradioL (ESTRACE) 0.01 % (0.1 mg/gram) Cream, Place vaginally twice a week., Disp: , Rfl: losartan (Cozaar) 100 mg tablet, Take 100 mg by mouth daily., Disp: , Rfl: Calcium Carbonate (Calcium 600) 600 mg calcium (1,500 mg) Tablet, Take 600 mg by mouth 2 times daily., Disp: , Rfl: jxjus-6-abf-eqx-jog-qzncbifvfr 250-2.5-0.5 mg Capsule, Take 1 capsule by mouth daily., Disp: , Rfl: documented in this encounter Plan of Treatment Not on file documented as of this encounter Visit Diagnoses Diagnosis Visit for suture removal Encounter for removal of sutures documented in this encounter Care Teams Quality Control Chemist Relationship Specialty Start Date End Date Bridgette Batista MD [address] [place] [address] PCP - General Family Medicine 08/26/22 documented as of this encounter
--- OUTSIDE RECORDS SUMMARY | 2024-06-06 02:11 | XMS_ITS | Encounter Summary ---
[place] [address] Care Team Providers Care Shipping And Receiving Clerk Name Role Phone Bridgette Batista MD Primary Care Provider [phone] Encounter Details Date Type Department Care Team (Latest Contact Info) Description 12/31/2022 Travel Social History Tobacco Use Types Packs/Day Years Used Date Smoking Tobacco: Never Assessed Sex and Gender Information Value Date Recorded Sex Assigned at Not on file Gender Identity Not on file Sexual Orientation Not on file documented as of this encounter Plan of Treatment Not on file documented as of this encounter Visit Diagnoses Not on filedocumented in this encounter Care Teams Shipping And Receiving Clerk Relationship Specialty Start Date End Date Bridgette Batista MD [address] [place] [address] PCP - General Family Medicine 08/26/22 documented as of this encounter
--- OUTSIDE RECORDS SUMMARY | 2024-06-06 02:11 | XMS_ITS | Encounter Summary ---
Author Organization [facility] Address [facility] [place] [address] Care Team Providers Care Managed Care Nurse Name Role Phone Bridgette Batista MD Primary Care Provider [phone] Reason for Visit * Reason Onset Date Comments Appointment 08/25/2023 Encounter Details Date Type Department Care Team (Late st Contact Info) Description 08/25/2023 [place] [phone] Jonna Palacios MD [facility] [place] [place] [address] Appointment Social History Tobacco Use Types Packs/Day Years Used Date Smoking Tobacco: Never Smokeless Tobacco: Never Alcohol Use Standard Drinks/Week Comments Yes 7 (1 standard drink = 0.6 oz pur e alcohol) 1 glass of wine in the evening [facility] Inpatient Questions Answer Date Recorded Does Anyone [...] encounter Miscellaneous Notes * Telephone Encounter - Dana Neal Sahil - 08/25/2023 8:45 AM EST Called pt scheduled with RN Suture Removal for 09/05 Scheduled 10/[address] Alvarez ----- Message from Jonna Palacios MD sent at 08/24/2023 1:51 PM EST ----- Hi, F/u w Dr. Alvarez in 4-6 wks, no imaging. 10-14 days for suture removal, with us or PCP. Thanks! Patsy documented in this encounter Plan of Treatment Not on file documented as of this encounter Visit Diagnoses Not on filedocumented in this encounter Care Teams Managed Care Nurse Relationship Specialty Start Date End Date Bridgette Batista MD [address] [facility] [address] [place] [address] PCP - General Family Medicine 08/26/22 documented as of this encounter
--- OUTSIDE RECORDS SUMMARY | 2024-06-06 02:11 | XMS_ITS | Encounter Summary ---
Author Organization [facility] Address [address] [place] [address] Care Team Providers Care Manager Pool Name Role Phone Unavailable Primary Care Provider Unavailabl e Encounter Details Date Type Department Care Team (Late st Contact Info) Description 04/17/2002 Results Only [facility] conversion [address] [place] [address] Venkatesh Zamora MD [address] [place] [address] Social History Tobacco Use Types [...] Date/Time Associated Diagnosis Comments SURGICAL PATHOLOGY Routine 04/17/2002 0:00 EDT documented in this encounter Results * SURGICAL PATHOLOGY (04/17/2002 0:00 EDT) Pathology Report: SURGICAL PATHOLOGY REPORT Reports generated via electronic interface contain original data; however they are lacking the format of the original report. Caution should be taken when reading/interpreti ng unformatted reports. Name: ? LAINE CHAN ? Accession #: ? [id number] ? : ? 1950 (Age: 51) ??F ? Collect Date: ? 04/17/2002 ? Location: ? [facility] ? Receive Date: ? 04/18/2002 ? Provider: VENKATESH ZAMORA MD Copy to: EDIL STANFORD MD ? Final Pathologic Diagnosis: A. ?Cervix, endocervix, curettage: 1. ?Benign endocervical tissue. 2. ?Endometrial glandular and stromal breakdown. 3. ?Small fragment of benign squamous epithelium. B. ?Uterus, endometrium, curettage: 1. ?Endometrial glandular and stromal breakdown. 2. ?Nodular smooth muscle fragment suggestive of leiomyoma. 3. ?No evidence of endometrial polyp or hyperplasia. Document reviewed and electronically signed by: López Brasher MD Report ??Date: 04/23/2002 18:14 By the signature above, the attending physician certifies that he/she has personally conducted a gross and/or microscopic examination of the described specimens and rendered or confirmed the above diagnosis. Specimen(s) Received: A. ?Endocervical curettings B. ?Uterine/endometr ial curettings Clinical History: ? Postmenopausal bleeding, irreg post ut wall Gross Description: ? Received in formalin labelled Chan and endocervical curettings is an aggregate of mucus and blood measuring 0.8 x 0.5 x 0.1 cm. ??The specimen is filtrated and entirely submitted as (A). Received in formalin labelled Chan and endometrial curettings is a 2.5 x 2.0 x 0.4 cm aggregate of blood clots and white to antonio soft tissue fragments. The largest fragment measures 0.6 x 0.5 x 0.4 cm, has a smooth white surface and rubbery consistency on bisection. ??The specimen is filtrated and entirely submitted as (B). ??(Dr. Lawrence)/g End of Report [facility] 04/17/2002 04/18/2002 15: 37 EDT Venkatesh Zamora MD PATHOLOGY ORDERABLES [facility] [address] [place] [address] documented in this encounter Visit Diagnoses Not on filedocumented in this encounter
--- OUTSIDE RECORDS SUMMARY | 2024-06-06 02:11 | XMS_ITS | Encounter Summary ---
Author Organization [facility] Address [address] [place] [address] Care Team Providers Care Magnetometer Operator Name Role Phone Unknown, Provider Primary Care Provider [phone] Encounter Details Date Type Department Care Team (Latest Contact Info) Description 10/22/2015 7:21 EST - 10/22/2015 23:59 EST Hospital Encounter [address] [address] Unknown, Provider, Discharge Disposition: Home or Self Care Social History Tobacco Use Types Packs/Day Years Used Date Smoking Tobacco: Never Assessed Sex and Gender Information Value Date Recorded Sex Assigned at Not on file Gender Identity Not on file Sexual Orientation Not on file documented as of this encounter Discharge Disposition Disposition Code Departure Means Destination Home or Self Shelter documented in this encounter Plan of Treatment Not on file documented as of this encounter Visit Diagnoses Not on filedocumented in this encounter Care Teams Magnetometer Operator Relationship Specialty Start Date End Date Unknown, Provider, PCP - General 08/26/15 03/09/16 documented as of this encounter
--- OUTSIDE RECORDS SUMMARY | 2024-06-06 02:11 | XMS_ITS | Encounter Summary ---
Author Organization [facility] Address [facility] [place] [address] Care Team Providers Care Software Tools Developer Name Role Phone Bridgette Batista MD Primary Care Provider [phone] Encounter Details Date Type Department Care Team (Latest Contact Info) Description 08/24/2023 10:13 AM EST - 08/24/2023 2:32 PM EST Hospital Encounter Outpatient [place] [id number] Niesha Alvarez MD [facility] [place] [address] Carpal tunnel syndrome, bilateral Discharge Disposition: Home Social History Tobacco Use Types Packs/Day Years [...] Sign Reading Time Taken Comments Blood Pressure 164/76 08/24/2023 2:15 PM EST Pulse 51 08/24/2023 2:15 PM EST Temperature 36.1 ??C (97 ??F) 08/24/2023 1:46 PM EST Respiratory Rate 16 08/24/2023 2:15 PM EST Oxygen Saturation 99% 08/24/2023 2:15 PM EST Inhaled Oxygen Concentration - - Weight 68 kg (150 lb) 08/24/2023 10:26 AM EST Height 167.6 cm (5' 6) 08/24/2023 10:26 AM EST Body Mass Index 24.21 08/24/2023 10:26 AM EST documented in this encounter Discharge Instructions * Discharge Instructions* Emili Arango RN - 08/24/2023 10:19 AM EST General Anesthesia Discharge Instructions Go home and rest. You may be sleepy for several hours. Take it easy as sudden position changes may cause nausea and/or dizziness. Use caution on stairs. Do not smoke if you are alone. Follow a light to regular diet as tolerated today. If nausea occurs, start with clear liquids, and progress slowly to a regular diet. Do not drive, operate machinery, drink alcoholic beverages or make any legal decisions after havinggeneral anesthesia. The medications given change your reaction time and alter your judgement. IV site -- slight redness is normal, you can use warm compresses. If tenderness and redness increases or foul drainage occurs, please contact your M.D. Patients who have had endotracheal tubes/LMA (tubes used by the anesthesia staff to ensure a safe airway during your operation) may have a sore throat. This is normal and cold liquids or soothing lozenges will help ease this discomfort. Narcotic pain medications can cause constipation, please ask the surgeons office what they recommend for prevention of this. Some non-pharmaceutical means of constipation prevention include increasing intake of fluids, eating more fruits and vegetables as well as fruit juices. If you are uncomfortable and/or unable to urinate within 8 hours of discharge and it is before 5 pm, call your physician. If it is after 5pm go to the closest emergency room or call the hospital dredge operator at [phone] and ask for physician personnel and payroll technician covering for your physician. Questions or problems after 5pm or on a weekend: Call the [facility] dredge operator at and ask for the physician personnel and payroll technician covering for your doctor. At 1030am you received 1000 mg of acetaminophen- Your next dose should not be taken before 8 hours have passed. Next dose not before- 630pm You should not take more than a total of 3000 mg of acetaminophen in a 24 hour period. * Patient Instructions* Jonna Palacios MD - 08/24/2023 11:09 AM EST NERVE DECOMPRESSION DISCHARGE INSTRUCTIONS Please note: These are general guidelines and helpful suggestions for your post- operative recovery period. Everyone progresses at their own individual pace. PRESCRIPTION INSTRUCTIONS: Please continue your home medications as previously prescribed. You make take Tylenol and ibuprofenas needed for pain. A prescription for oxycodone (a narcotic pain medication) has been sent to your pharmacy. Only use this if pain is uncontrolled with heat/ice/Tylenol/ibuprofen. This may cause constipation. If used, recommend also taking a stool softener. WHEN TO SEEK MEDICAL CARE: Signs or symptoms of an infection: - Fever over 101F - Redness, swelling, or increasing pain around your incision - Drainage of pus, blood, or clear fluid from your incision Constipation not relieved by diet and/or ymvw-ctq-ihaafrq stool softeners and laxatives Nausea/vomiting (upset stomach) not controlled with anti-nausea medication Symptoms of a deep venous thrombosis (DVT) or pulmonary embolism (PE): - Swelling/warmth/redness of the leg - Pain in the leg, which can be worse with standing or walking - Chest pain or shortness of breath To help prevent a DVT: - Exercise regularly. Walking, at least several times daily, is helpful. - Ankle pump exercises (like pressing and releasing the gas pedal) should be done regularly. - Keep hydrated with water or other clear liquids (coffee/tea/cola can dehydrate you). - Avoid alcohol and crossing your legs. - Remember not to sit or lay in bed, while awake, for prolonged amounts of time. WOUND CARE: - Ice 2-3 times a day for 15-20 minutes at a time (wrap ice in towel prior to icing) and keep elevated above level of heart when possible. - Keep incisional site covered and dry for 2 days. You may shower initially, but do not get the incision wet. Cover the arm with a plastic bag to keep it dry. - You may remove your dressing 2 days after surgery and then allow the incision to get wet during showers. Do not submerge the incision in a bath tub, hot tub, or swimming pool for 2-3 weeks. - Unless directed otherwise, no ointments, creams, or gels (such as Neosporin) on the incision. - Do not be surprised if redness develops around the sutures. If progressive redness or pus-like draining develops, please contact the office. - You may notice some numbness and swelling around your incision which is normal. This should gradually decrease. - Non-absorbable sutures and maddy should be removed 10 to 14 days after surgery. DIET: - You may resume your usual diet. - A well-balanced diet is recommended for wound healing. - Prune juice or prunes can be added to your diet to assist with any constipation. ACTIVITY: - Keep sling on 10-14 days after surgery. The sling may be removed while sleeping and showering. - No lifting, pushing, pulling, or overhead lifting with the arm having surgery. - Your energy level will be decreased for a short period of time following surgery. - Walking is the best exercise after surgery. DRIVING: - You may return to driving 10-14 days after surgery. NEVER DRIVE OR OPERATE MACHINERY UNDER THE INFLUENCE OF NARCOTIC PAIN RELIEVERS OR MUSCLE RELAXANTS. Smoking is the leading preventable cause of , and quitting is the single most important thing you can do for your health. However, it's hard to quit smoking and you might need some help. Nicotine in tobacco is an addictive drug and it can be a very difficult to quit. Seventy percent of all adult smokers want to quit smoking but are overwhelmed with the process. We can help! Our Tobacco Dependence Clinics We have tobacco dependence clinics in these locations: [facility]: Deepika [place] [facility] [place] Other Programs at [facility] in [place] [facility] Tobacco support group: For anyone who has quit tobacco or is considering quitting tobacco. [facility] Health Education Center, Level 4, [place] 3:30 to 4:30 p.m. on the tuesday of every month. Other Programs in the Area [facility] One-on-one counseling, hypnosis. Jenn Alvarado [facility] in [place], [place] One-on-one counseling, QuitLine, classes. Celeste Hewittkristinemily [facility]: One-on-one counseling. All ages and incomes eligible. Johanna Torres [facility]: Classes & support group. Aureliano Munguia [facility] in [place], [place] One-on-one counseling, QuitLine, classes, hypnosis therapy. Mirtha Shannan Information about Quitting Smoking and Tobacco See our Quitting Smoking - Information and Materials page ([email or web address]_on_[email or web address]_smoking.[email or web address]) for educational information about quitting smoking, downloadable smoking cessation materials, podcasts, websites, helplines, and more. FOLLOW UP PLAN: Incision: [x] Please follow up for suture/staple removal in 10-14 days with your Primary Care Provider or with the Neurosurgery ER MANAGER/RN. Appointments: Please follow up in the Neurosurgery Clinic in 4 weeks with: [x] Dr. Alvarez Please call the Neurosurgery Office at [phone] if you do not receive a scheduled appointment. For after hours concerns/questions, call the hospital dredge operator at [phone] and ask for the Neurosurgery resident on-call. documented in this encounter Medications at Time of Discharge Medication Sig Dispensed Refills Start Date End Date atorvastatin (Lipitor) 20 mg tablet Take 40 mg by mouth daily. 05/26/2023 estradioL (ESTRACE) 0.01 % (0.1 mg/gram) Cream Place vaginally twice a week. 01/27/2023 losartan (Cozaar) 100 mg tablet Take 100 mg by mouth daily. 05/31/2023 Calcium Carbonate (Calcium 600) 600 mg calcium (1,500 mg) Tablet Take 600 mg by mouth 2 times daily. rdwgh-4-lbm-cfi-cer-jzol anthin 250-2.5-0.5 mg Capsule Take 1 capsule by mouth daily. documented as of this encounter Progress Notes * Mayra Martinez RN - 08/24/2023 2:26 PM EST Discharge instructions and medications reviewed with patient and escort, January. All questions answered and written copy of AVS sent home with patient. Patient ambulated to car for discharge accompanied by [facility] staff member. documented in this encounter H&P Notes * Jonna Palacios MD - 08/24/2023 10:05 AM EST [facility] NEUROSURGERY PRE-OPERATIVE H&P DATE: 08/24/2023 ID: Laine Streeter, 72 y.o. female : 1950 CC: Planned procedure HPI: Laine Streeter is a 72 y.o. female with a PMHx of b/l CTS s/p endoscopic R CTR w recurrent symptoms and cyst formation who presents today for elective open exploration/decompression. No interval events or changes in health status. Denies any new ED visits, hospitalizations, trauma;denies angina/dyspnea/fevers or malaise within the last 14 days. No history of recent antiplatelet or anticoagulant use. EXAMINATION: No data found. General: NAD, resting comfortably Cardiovascular: HDS Respiratory: Non-labored respirations on RA Neurological: Awake, alert, pleasant, conversational +Atrophy at R thenar eminence 4/5 opponens, otherwise 5/5 Numbness in lateral three digits, worst at the finger tips Small cystic structure over the location of the prior decompression ASSESSMENT & PLAN: 72 y.o. female with carpal tunnel syndrome who presents today for elective CTR. All questions were answered. Stable for surgery as scheduled. Procedure(s): MEDIAN NERVE DECOMPRESSION (CARPAL TUNNEL RELEASE) (WRVU 4.97) Jonna Palacios MD 08/24/2023 10:05 AM [facility] Neurosurgery Inpatient Pager: #[phone] Personal Pager: #[phone] documented in this encounter Miscellaneous Notes * Brief Op Note - Jonna Palacios MD - 08/24/2023 1:40 PM EST Brief Operative Note Patient Name: Laine Streeter : [id number] MR#: [id number] Case Date: 08/24/2023 Surgeon: Surgeon(s) and Role: * Niesha Alvarez MD - Primary Preoperative diagnosis: carpal tunnel syndrome Postoperative diagnosis: carpal tunnel syndrome Procedure(s) (LRB): MEDIAN NERVE DECOMPRESSION (CARPAL TUNNEL RELEASE) (WRVU 4.97) (Right) Anesthesia: General Findings: 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 Neurolysis performed. Lysis of remaining transverse carpal ligament. Incision closed w nylon. Complications: None. Estimated Blood Loss: * No values recorded between 08/24/2023 12:30 PM and 08/24/2023 1:38 PM * Specimens removed during surgery: None Fluids: Intraprocedure Crystalloid Total None PRBCs: none (See Anesthesia Record/Report for Other Blood Products) Urine Output: (no urine output recorded) Drains: None. Disposition: awakened from anesthesia, extubated and taken to the recovery room in a stable condition, having suffered no apparent untoward event. Condition: doing well without problems (Please see the Surgical Encounter Summary for any Implant and Specimen details pertinent to this patient.) Surgical Infection Prevention Bundle Used? N/A Jonna Palacios MD * Op Note - Niesha Alvarez MD - 08/24/2023 12:30 PM EST [facility] Operative Note Patient Name: Laine Streeter : [id number] MR#: [id number] Case Date: 08/24/2023 Surgeon: Surgeon(s) and Role: * Niesha Alvarez MD - Primary Preoperative diagnosis: carpal tunnel syndrome Postoperative diagnosis: carpal tunnel syndrome Procedure(s) (LRB): MEDIAN NERVE DECOMPRESSION (CARPAL TUNNEL RELEASE) (WRVU 4.97) (Right) Findings: median nerve neuroma directly underlying prior endoscopic incision Anesthesia: General Estimated Blood Loss: 0 mL Specimens removed during surgery: None Drains: NOne Surgical Closure: Primary Closure - skin incision is completely closed without any wires, kristyn, drains or other devices Disposition: awakened from anesthesia, extubated and taken to the recovery room in a stable condition, having suffered no apparent untoward event. Condition: doing well without problems (Please see the Surgical Encounter Summary for any Implant and Specimen details pertinent to this patient.) Laine Streeter is a 72-year-old woman with a history of right carpal tunnel syndrome. She is status post carpal tunnel release, endoscopically, with recurrence of her preoperative symptoms of hand numbness. It EMG and MRI demonstrated recurrent carpal tunnel syndrome on the right with edematous and swollen median nerve. After discussion of the risks, benefits, alternatives, she elected to undergo reexploration of the median nerve at the wrist from an open approach. The patient was seen and interviewed in the preoperative holding area. Updated history was obtained. Consent was obtained. The op site was the right hand, this is marked with a green quechan. The patient was taken back to the operating by anesthesia. MAC anesthesia was induced no complication. The right hand was then circumferentially prepped and draped in the usual sterile fashion. A timeout was undertaken, 2 g cefazolin were administered intravenously. We planned a incision in the palm slightly to the ulnar side of the wrist. We incorporated a small transverse incision along the distal wristcrease and then extended the incision proximally to overlie the area of the bump in her wrist. The skin was anesthetized with quarter percent Marcaine with epinephrine. We opened the skin sharply with a 15 blade. We proceeded to dissect through the subcutaneous fat, we retractor was placed visualization of the underlying structures. We explored the transverse carpal ligament, and found that this was quite intact distally. This was released sharply with iris scissors. We then felt like we had not adequately visualize the median nerve and proceeded to work proximally through the wrist crease. At this point, directly underlying the prior endoscopic incision we found a very large, swollen median nerve with concern for neuroma in continuity. We then proceeded to extensively neurolysed the median nerve from proximal to the neuroma to distal end of the hand. We followed the nerve until were competent there were no further regions of entrapment. Given that she had intact motor function, we elected not to try and reconstruct the nerve itself at this point. We proceeded to close. The entire wound was copiously irrigated with LR. We closed layered fashion. Interrupted 3-0 Vicryl's were used to the deep dermal layer, and the skin was closed with a 4-0 nylon in interrupted fashion. At the end of the case, all counts were correct. I was present for the entire procedure. Surgical Infection Prevention Bundle Used? N/A Attestation: Case Date: 08/24/2023 I was present and I participated during the entire procedure (does not need to include opening and closing). Niesha Alvarez MD 08/24/2023 documented in this encounter Plan of Treatment Not on file documented as of this encounter Procedures Procedure Name Priority Date/Time Associated Diagnosis Comments Revise Median N/Carpal Tunnel Surg (83594) 08/24/2023 12:15 PM EST Carpal tunnel syndrome, bilateral MEDIAN NERVE DECOMPRESSION (CARPAL TUNNEL RELEASE) Routine 08/24/2023 10:18 AM EST Carpal tunnel syndrome, bilateral documented in this encounter Visit Diagnoses Diagnosis Carpal tunnel syndrome, bilateral Carpal tunnel syndrome documented in this encounter Administered Medications Inactive Administered Medications - up to 3 most recent administrations Medication Order MAR Action Action Date Dose Rate Site acetaminophen (Tylenol) tablet 975 mg 975 mg, Oral, ONCE, 1 dose, On Tue08/24/23 at 0700, Maximum dose of acetaminophen is 4,000 mg from all sources in 24 hours. When ordered for pain, acetaminophen should be given even when other ordered pain medications are indicated. , Routine Given 08/24/2023 10:26 AM EST 975 mg lactated ringers infusion 1,000 mL, at 100 mL/hr, Intravenous, CONTINUOUS, Starting on Tue08/24/23 at 1045, Until Tue08/24/23 at 1429, Day of Surgery (Day of Procedure) New Bag 08/24/2023 10:43 AM EST 1,000 mLs 100 mL/hr documented in this encounter Active and Recently Administered Medications Times are shown in EST. Scheduled Medication Order 08/22/2023 08/23/2023 08/24/2023 acetaminophen (Tylenol) tablet 975 mg (COMPLETED) 975 mg, Oral, ONCE, 1 dose, On Tue08/24/23 at 0700, Maximum dose of acetaminophen is 4,000 mg from all sources in 24 hours. When ordered for pain, acetaminophen should be given even when other ordered pain medications are indicated. , Routine 1026 (Given - Provid er: Emili Arango RN) Continuous Medication Order 08/22/2023 08/23/2023 08/24/2023 lactated ringers infusion (CANCELED) 1,000 mL, at 100 mL/hr, Intravenous, CONTINUOUS, Starting on Tue08/24/23 at 1045, Until Tue08/24/23 at 1429, Day of Surgery (Day of Procedure) 1043 (New Bag - Prov ider: Emili Arango RN) PRN Medication Order 08/22/2023 08/23/2023 08/24/2023 BUpivacaine-EPINEPHrine (Marcaine-epiNEPHrine) 0.25 %-1:200,000 injection (CANCELED) PRN, Starting on Tue08/24/23 at 1247, Until Tue08/24/23 at 1632, Intra-Operative (Intra-Procedure), Routine 1247 (Given - Provid er: Niesha Alvarez MD - Comment: Right hand) documented in this encounter Care Teams Software Tools Developer Relationship Specialty Start Date End Date Bridgette Batista MD [address] [place] [address] PCP - General Family Medicine 08/26/22 documented as of this encounter
--- OUTSIDE RECORDS SUMMARY | 2024-06-06 02:11 | XMS_ITS | Encounter Summary ---
Author Organization Formerly [facility] Address [facility] [place] [address] Care Team Providers Care Film Recordist Name Role Phone Bridgette Batista MD Primary Care Provider [phone] Encounter Details Date Type Department Care Team (Late st Contact Info) Description 08/24/2023 12:15 PM EST Anesthesia Event [facility] [place] [address] Damian Crockett MD [facility] [place] [address] Gene Bermudez MD [facility] [address] [place] [address] Anesthesia Record Procedure Summary Procedure Name Responsible Anesthesiologist Anesthesia Start Time Anesthesia Stop Time MEDIAN NERVE DECOMPRESSION (CARPAL TUNNEL RELEASE) (WRVU 4.97) (Right: Hand) Damian Crockett MD 08/24/23 1215 08/24/23 1350 Events Date Time Event Comment 08/24/2023 1050 1215 AN Verify 1215 Start 1215 An Start Data 1218 Anesthesia Ready 1342 an stop data 1350 Recovery or ICU Handoff Anna ent care was transferred to the destination unit staff after review of the patient's medical history, current anesthetic/surgical status and plan, according to the Provider Handoff Checklist. 1350 Stop Meds Name Total fentaNYL 50 mcg IV Lidocaine 20 mg Propofol 80 mg Propofol INF 550.8 mg ceFAZolin 2 g ondansetron 4 mg lactated ringers 950 mL * Agents Name O2 Air N2O * Blood No blood administrations on file. Lines, Drains, and Airways Type Details Placement Removal Incision 08/24/23; 1235; Righ t; palm; Surgical Site 08/24/23 1235 by Dana Trinidad RN Incision 08/24/23; 1322; Righ t; palm; Fluffs, Xeroform and Lew 08/24/23 1322 by Dana Trinidad RN PIV 08/24/23; 1042; [id number] catheter system; 22 gauge; basilic vein (medial side of arm), left; Anatomical Landmarks; emk; 08/24/23; 1425 08/24/23 1042 by Emili Arango RN 08/24/23 1425 by Mayra Martinez RN documented in this encounter Social History Tobacco Use Types Packs/Day Years Used Date Smoking Tobacco: Never Smokeless Tobacco: Never Alcohol Use Standard Drinks/Week Comments Yes 7 (1 standard drink = 0.6 oz pur e alcohol) 1 glass of wine in the evening DH IPV Inpatient Questions Answer Date Recorded Does [...] on file documented as of this encounter OR Notes * Anesthesia Postprocedure Evaluation - Damian Crockett MD - 08/24/2023 3:10 PM EST Department of Anesthesiology Post-procedure Note Patient: Laine Streeter Procedure Summary Date: 08/24/23 Room / Location: [facility] OR [address] [place] [address] Anesthesia Start: 1215 Anesthesia Stop: 1350 Procedure: MEDIAN NERVE DECOMPRESSION (CARPAL TUNNEL RELEASE) (WRVU 4.97) (Right: Hand) Diagnosis: Carpal tunnel syndrome, bilateral (carpal tunnel syndrome) Surgeons: Niesha Alvarez MD Responsible Provider: Damian Crockett MD Anesthesia Type: MAC ASA Status: 2 All Anesthesia Providers: Anesthesiologist: Damian Crockett MD SUPERVISOR GROWER: Wendy Gan CRNA; Genoveva Jacome CRNA Vitals Value Taken Time BP 164/76 08/24/23 1417 Temp 36.1 ??C (97 ??F) 08/24/23 1346 Pulse 52 08/24/23 1419 Resp 16 08/24/23 1415 SpO2 99 % 08/24/23 1415 Pain Level Vitals shown include unfiled device data. Patient Location: PACU/[facility] Level of Consciousness: Awake and Alert Pain Management: Satisfactory Analgesia PONV: None Cardiovascular Status: At Baseline Respiratory Status: At Baseline Postoperative Fluid Status: Possible Anesthetic Complications: NONE apparent at time of evaluation Final Primary Anesthesia Type: MAC (The anesthetic type performed was the same as planned.) Comments: * Anesthesia Preprocedure Evaluation - Damian Crockett MD - 08/24/2023 8:47 AM EST Pre-Anesthesia Evaluation for: Laine Streeter a 72 y.o. female. Procedure(s): MEDIAN NERVE DECOMPRESSION ([facility]EL [facility]) [facility] Patient Active Problem List Diagnosis Date Noted ??? Carpal tunnel syndrome, bilateral 01/09/2023 No past medical history on file. No past surgical history on file. Social History Tobacco Use ??? Smoking status: Never ??? Smokeless tobacco: Never Substance Use Topics ??? Alcohol use: Yes Alcohol/week: 7.0 standard drinks of alcohol Types: 7 Glasses of wine per week Comment: 1 glass of wine in the evening Social History Substance and Sexual Activity Drug Use Never Allergies Allergen Reactions ??? Lisinopril Makes her cough Medications: MAR and/or home medications have been reviewed. Physical Exam: Preprocedure Vitals Current as of 08/24/23 0847 No BP, pulse, respiration, SpO2, or temperature recorded. Height: Weight: BMI: IBW: Airway Assessment: Mallampati: I TM distance: >3 FB Neck ROM: full Cardiovascular Assessment: system normal Pulmonary Assessment: pulmonary exam normal Dental Assessment: - normal exam (+) upper dentures Misc Assessment: Last Filed Perioperative Cognitive Screening None Anesthesia Plan: ASA 2 MAC, with a(n) intravenous induction 72 y/o female, presenting for right carpal tunnel release. Allergies: lisinopril NPO: >8/>2 Functional Capacity: >4 METS Plan: MAC Standard monitors Informed Consent: Anesthetic plan and risks discussed with patient. Plan discussed with SUPERVISOR GROWER. Anesthesia Screening documented in this encounter Plan of Treatment Not on file documented as of this encounter Visit Diagnoses Not on filedocumented in this encounter Administered Medications Inactive Administered Medications - up to 3 most recent administrations Medication Order MAR Action Action Date Dose Rate Site ceFAZolin (Ancef) injection Intravenous, PRN, Starting on Tue08/24/23 at 1227, Until Tue08/24/23 at 1350, Anesthesia Intra-op, Routine Given 08/24/2023 12:27 PM EST 2 g fentaNYL (pf) (50 mcg/mL) multi-dose injection Intravenous, PRN, Starting on Tue08/24/23 at 1217, Until Tue08/24/23 at 1350, Anesthesia Intra-op, Routine Given 08/24/2023 1:00 PM EST 25 mcg Given 08/24/2023 12:17 PM EST 25 mcg lactated ringers infusion Intravenous, CONTINUOUS PRN, Starting on Tue08/24/23 at 1215, Until Tue08/24/23 at 1350, Anesthesia Intra-op New Bag 08/24/2023 12:15 PM EST lidocaine (pf) (Xylocaine) (20 mg/mL) 2% injection syringe Intravenous, PRN, Starting on Tue08/24/23 at 1217, Until Tue08/24/23 at 1350, Anesthesia Intra-op, Routine Given 08/24/2023 12:17 PM EST 20 mg ondansetron (pf) (Zofran) (2 mg/mL) injection Intravenous, PRN, Starting on Tue08/24/23 at 1225, Until Tue08/24/23 at 1350, Anesthesia Intra-op, Routine Given 08/24/2023 12:25 PM EST 4 mg propofoL (Diprivan) (10 mg/mL) infusion Intravenous, CONTINUOUS PRN, Starting on Tue08/24/23 at 1217, Until Tue08/24/23 at 1350, Anesthesia Intra-op, Routine New Bag 08/24/2023 12:17 PM EST 100 mcg/kg/min 40.8 mL/hr propofoL (Diprivan) 10 mg/mL bolus injection (Anesthesia) Intravenous, PRN, Starting on Tue08/24/23 at 1217, Until Tue08/24/23 at 1350, Anesthesia Intra-op Given 08/24/2023 12:31 PM EST 30 mg Given 08/24/2023 12:17 PM EST 50 mg documented in this encounter Care Teams Film Recordist Relationship Specialty Start Date End Date Bridgette Batista MD [address] [place] [address] [address] [facility] [address] [place] [address] PCP - General Family Medicine 08/26/22 documented as of this encounter
--- OUTSIDE RECORDS SUMMARY | 2024-06-06 02:11 | XMS_ITS | Encounter Summary ---
Author Organization Formerly [facility] [place] [address] Care Team Providers Care Help Desk Manager Name Role Phone Bridgette Batista MD Primary Care Provider [phone] Encounter Details Date Type Department Care Team (Late st Contact Info) Description 01/20/2023 Telephone [place] [phone] Jacqueline Graves RN Social History Tobacco Use Types Packs/Day Years Used Date Smoking Tobacco: Never Assessed Sex and Gender Information Value Date Recorded Sex Assigned at Not on file Gender Identity Not on file Sexual Orientation Not on file documented as of this encounter Miscellaneous Notes * Telephone Encounter - Jacqueline Graves RN - 01/20/2023 1:52 PM EDT Copied from [facility] #[id number]. Topic: Specialty Dept CRMs - Generic Call >> Jan 20, 2023 12:16 PM Wojciech Carroll wrote: Specialist: Niesha Alvarez MD Relationship (if other than patient-full name): patient Reason for Call: Patient calling in regards to MRI and EMG orders. Patient inquires if both orders have been sent to [facility]. Patient also states that [facility] contacted patient to schedule carpal tunnel surgery. Patient states that patient was under the impression that testing needed completion and then scheduling for surgery would be at [facility]. Please call to advise. Attempted to call Laine to discuss questions. Orders were sent to [facility] and plan would be for patient to have surgery here at [facility]. Unable to leave . documented in this encounter Plan of Treatment Not on file documented as of this encounter Visit Diagnoses Not on filedocumented in this encounter Care Teams Help Desk Manager Relationship Specialty Start Date End Date Bridgette Batista MD [address] [facility] [address] [place] [address] PCP - General Family Medicine 08/26/22 documented as of this encounter
--- OUTSIDE RECORDS SUMMARY | 2024-06-06 02:11 | XMS_ITS | Encounter Summary ---
Author Organization [facility] Address [address] [place] [address] Care Team Providers Care Reconciliation Accountant Name Role Phone Unavailable Primary Care Provider Unavailabl e Encounter Details Date Type Department Care Team (Late st Contact Info) Description 11/19/2004 Results Only [facility] [address] [place] [address] Venkatesh Zamora MD [address] [place] [address] [place] [address] Social History Tobacco Use Types [...] Priority Date/Time Associated Diagnosis Comments CYTOPATHOLOGY Routine 11/19/2004 0:00 EST documented in this encounter Results * CYTOPATHOLOGY (11/19/2004 0:00 EST) Pathology Report: CYTOPATHOLOGY REPORT Reports generated via electronic interface contain original data; however they are lacking the format of the original report. Caution should be taken when reading/interpreti ng unformatted reports. Name: ? LAINE CHAN ? Accession #: ? [id number] : ? 1950 (Age: 53) ??F ?Collect Date: ? 11/19/2004 Location: ? [facility] ? Receive Date: ? 11/20/2004 Provider: ?VENKATESH ZAMORA MD Copy to: ? Specimen/Source: ?ThinPrep Pap Test, Cervix/Endocervix Last Menstrual Period: ? 1999 Other: ? Additional clinical information: Atrophic vagina ? SPECIMEN ADEQUACY ? Satisfactory for Evaluation - transformation zone component present GENERAL CATEGORIZATION ? Negative for Intraepithelial Lesion or Malignancy ? Document reviewed and electronically signed by: ? LEÓN Hoskins(ASCP) ? Report Date: ??11/26/2004 07:58 End of Report [facility] 11/19/2004 11/20/2004 Venkatesh Zamora MD PATHOLOGY ORDERABLES [facility] [address] [place] [address] documented in this encounter Visit Diagnoses Not on filedocumented in this encounter
--- OUTSIDE RECORDS SUMMARY | 2024-06-06 02:11 | XMS_ITS | Encounter Summary ---
Author Organization [facility] Address [address] [place] [address] Care Team Providers Care Predatory Animal Trapper Name Role Phone Unknown, Provider Primary Care Provider [phone] Encounter Details Date Type Department Care Team (Late st Contact Info) Description 02/23/2016 Results Only [facility] [phone] Bridgette Batista MD [address] [place] [address] Social History Tobacco Use Types [...] Diagnosis Comments PAP TEST- RESULT ONLY Routine 02/23/2016 0:00 EDT documented in this encounter Results * PAP TEST- RESULT ONLY (02/23/2016 0:00 EDT) Pathology Report: CYTOPATHOLOGY REPORT Reports generated via electronic interface contain original data; however they are lacking the format of the original report. Caution should be taken when reading/interpreti ng unformatted reports. Name: ? LAINE CHAN ? Accession #: ? [id number] ? : ? 1950 (Age: 65) ??F ?Collect Date: ? 02/23/2016 ? Location: ? [facility] ? Receive Date: ? 02/24/2016 ? Provider: BRIDGETTE BATISTA MD Copy to: ? Final Report SPECIMEN ADEQUACY ? Satisfactory for Evaluation - transformation zone component present GENERAL CATEGORIZATION ? Epithelial Cell Abnormality INTERPRETATION ? Squamous Cell Abnormality - Atypical squamous cells, undetermined significance (ASC-US). EDUCATIONAL NOTES/RECOMMENDATI ONS ? [facility] recommends following ASCCP's 2012 Updated Consensus Guidelines for the Management of Abnormal Cervical Cancer Screening Tests and Cancer Precursors (JLGTD, 2013; 17(5):S1-S27). ??Consensus guidelines are available online at www.asccp.org. Last Menstrual Period: Years ago Hormonal/Contracep tive status: None Previous Gynecologic Pathology: HPV: + x2 Other: Additional clinical information: Neg Cytology Specimen/Source: ??Pap Test, Cervix/Endocervix, ThinPrep Imaging System with manual evaluation Document reviewed and electronically signed by: ? MARY FREED MD ? Report ??Date: 03/06/2016 13:26 HPV with Pap Test ? Date Ordered: ? 03/05/2016 ? Status: ?? Signed Out ?Date Complete: ? 03/10/2016 ? By: ??System Interface ? Date Reported: ? 03/10/2016 ? Interpretation RESULT: Positive for high or intermediate risk HPV. E6 OR E7 mRNA from one or more types of HPV types 16,18,31, 33,35,39,45,51,52, 56,58,59,66, and 68 is detected by ambulance assistant mediated amplification. High and intermediate risk HPV types are associated with most squamous intraepithelial lesions and cervical cancers. Comments Document reviewed and electronically signed by: ? System Interface ? Report date: 03/10/2016 By the signature above, the attending physician certifies that he/she has personally conducted a gross and/or microscopic examination of the described specimens and rendered or confirmed the above diagnosis. End of Report [facility] 02/23/2016 02/24/2016 Bridgette Batista MD PATHOLOGY ORDERABLE S [facility] [address] [place] [address] documented in this encounter Visit Diagnoses Not on filedocumented in this encounter Care Teams Predatory Animal Trapper Relationship Specialty Start Date End Date Unknown, Provider, PCP - General 08/26/15 03/09/16 documented as of this encounter
--- OUTSIDE RECORDS SUMMARY | 2024-06-06 02:11 | XMS_ITS | Encounter Summary ---
Author Organization [facility] [place] [address] Care Team Providers Care Type Mapper Name Role Phone Bridgette Batista MD Primary Care Provider [phone] Encounter Details Date Type Department Care Team (Late st Contact Info) Description 09/02/2023 Telephone [place] [phone] Rajat Saleh, RN Social History Tobacco Use Types Packs/Day Years Used Date Smoking Tobacco: Never Smokeless Tobacco: Never Alcohol Use Standard Drinks/Week Comments Yes 7 (1 standard drink = 0.6 oz pur e alcohol) 1 glass of wine in the evening [facility] Inpatient Questions Answer Date Recorded Does Anyone [...] encounter Miscellaneous Notes * Telephone Encounter - Rajat Saleh, RN - 09/02/2023 9:24 AM EST Laine Streeter 1950 72 y.o. [id number] F/U call s/p MEDIAN NERVE DECOMPRESSION (CARPAL TUNNEL RELEASE) (WRVU 4.97) (Right) Date of discharge: 08/24/23 Date of call: 09/02/23 Attempted call, received busy signal, unable to leave message. documented in this encounter Plan of Treatment Not on file documented as of this encounter Visit Diagnoses Not on filedocumented in this encounter Care Teams Type Mapper Relationship Specialty Start Date End Date Bridgette Batista MD [address] [address] [place] [address] PCP - General Family Medicine 08/26/22 documented as of this encounter
--- OUTSIDE RECORDS SUMMARY | 2024-06-06 02:11 | XMS_ITS | Encounter Summary ---
Author Organization [facility] Address [address] [place] [address] Care Team Providers Care Motor Grader Rough Grade Name Role Phone Unavailable Primary Care Provider Unavailabl e Encounter Details Date Type Department Care Team (Late st Contact Info) Description 02/10/2015 Results Only [facility] [phone] Bridgette Batista MD [address] [place] [address] [address] [place] [phone] Social History Tobacco Use Types Packs/Day Years [...] Diagnosis Comments PAP TEST- RESULT ONLY Routine 02/10/2015 0:00 EDT documented in this encounter Results * PAP TEST- RESULT ONLY (02/10/2015 0:00 EDT) Pathology Report: CYTOPATHOLOGY REPORT Reports generated via electronic interface contain original data; however they are lacking the format of the original report. Caution should be taken when reading/interpreti ng unformatted reports. Name: ? LAINE CHAN ? Accession #: ? [id number] ? : ? 1950 (Age: 64) ??F ?Collect Date: ? 02/10/2015 ? Location: ? [facility] ? Receive Date: ? 02/12/2015 ? Provider: BRIDGETTE BATISTA MD Copy to: ? Final Report SPECIMEN ADEQUACY ? Satisfactory for Evaluation - transformation zone component absent GENERAL CATEGORIZATION ? Negative for Intraepithelial Lesion or Malignancy ?? Menstrual/Pregnanc y Status: ??Post Menopausal Previous Gynecologic Pathology: HPV: + 10/07/14 Other: Additional clinical information: Neg Pap 10/07/14 Specimen/Source: ??Pap Test, Cervix/Endocervix, ThinPrep Imaging System with manual evaluation Document reviewed and electronically signed by: ? Alison Mclean, LEÓN(ASCP)(IAC) ? Report ??Date: 02/19/2015 13:32 HPV with Pap Test ? Date Ordered: ? 02/19/2015 ? Status: ?? Signed Out ?Date Complete: ? 02/21/2015 ? By: ??System Interface ? Date Reported: ? 02/21/2015 ? Interpretation RESULT: Positive for high or intermediate risk HPV. E6 OR E7 mRNA from one or more types of HPV types 16,18,31, 33,35,39,45,51,52, 56,58,59,66, and 68 is detected by tool smith mediated amplification. High and intermediate risk HPV types are associated with most squamous intraepithelial lesions and cervical cancers. Comments Document reviewed and electronically signed by: ? System Interface ? Report date: 02/21/2015 By the signature above, the attending physician certifies that he/she has personally conducted a gross and/or microscopic examination of the described specimens and rendered or confirmed the above diagnosis. End of Report [facility] 02/10/2015 02/12/2015 Bridgette Batista MD PATHOLOGY ORDERABLE S [facility] [address] [place] [address] documented in this encounter Visit Diagnoses Not on filedocumented in this encounter
--- OUTSIDE RECORDS SUMMARY | 2024-06-06 02:11 | XMS_ITS | Encounter Summary ---
Author Organization [facility] Address [address] [place] [address] Care Team Providers Care Insurance Account Assistant Name Role Phone Unavailable Primary Care Provider Unavailabl e Encounter Details Date Type Department Care Team (Late st Contact Info) Description 10/07/2014 Results Only [facility] ([facility] [address] [place], [place] [address] Bridgette Batista MD [address] [place] [address] [address] [place] [address] Social History Tobacco Use Types [...] Diagnosis Comments PAP TEST- RESULT ONLY Routine 10/07/2014 0:00 EST documented in this encounter Results * PAP TEST- RESULT ONLY (10/07/2014 0:00 EST) Pathology Report: CYTOPATHOLOGY REPORT Reports generated via electronic interface contain original data; however they are lacking the format of the original report. Caution should be taken when reading/interpreti ng unformatted reports. Name: ? LAINE CHAN ? Accession #: ? [id number] ? : ? 1950 (Age: 63) ??F ?Collect Date: ? 10/07/2014 ? Location: ? [facility] ? Receive Date: ? 10/08/2014 ? Provider: BRIDGETTE BATISTA MD Copy to: ? Final Report SPECIMEN ADEQUACY ? Satisfactory for Evaluation - transformation zone component absent GENERAL CATEGORIZATION ? Negative for Intraepithelial Lesion or Malignancy ?? Menstrual/Pregnanc y Status: ??Post Menopausal Specimen/Source: ??Pap Test, Cervix/Endocervix, ThinPrep Imaging System with manual evaluation Document reviewed and electronically signed by: ? LEÓN See(ASCP) ? Report ??Date: 10/16/2014 09:27 HPV with Pap Test ? Date Ordered: ? 10/16/2014 ? Status: ?? Signed Out ?Date Complete: ? 10/18/2014 ? By: ??System Interface ? Date Reported: ? 10/18/2014 ? Interpretation RESULT: Positive for high or intermediate risk HPV. E6 OR E7 mRNA from one or more types of HPV types 16,18,31, 33,35,39,45,51,52, 56,58,59,66, and 68 is detected by shrimp picker mediated amplification. High and intermediate risk HPV types are associated with most squamous intraepithelial lesions and cervical cancers. Comments Document reviewed and electronically signed by: ? System Interface ? Report date: 10/18/2014 By the signature above, the attending physician certifies that he/she has personally conducted a gross and/or microscopic examination of the described specimens and rendered or confirmed the above diagnosis. End of Report [facility] 10/07/2014 10/08/2014 Bridgette Batista MD PATHOLOGY ORDERABLE S Performing Organization Address City/State/[facility] Co de Phone Number [facility] [address] [place] [address] documented in this encounter Visit Diagnoses Not on filedocumented in this encounter
--- OUTSIDE RECORDS SUMMARY | 2024-06-06 02:11 | XMS_ITS | Encounter Summary ---
Author Organization [facility]ly [facility] Address [facility] [place] [address] Care Team Providers Care Healthcare Financial Analyst Name Role Phone Bridgette Batista MD Primary Care Provider [phone] Encounter Details Date Type Department Care Team (Late st Contact Info) Description 08/24/2023 11:50 AM EST - 08/24/2023 1:11 PM EST Surgery [place] [phone] Niesha Alvarez MD [facility] [place] [address] MEDIAN NERVE DECOMPRESSION (CARPAL TUNNEL RELEASE) (WRVU 4.97) Social History Tobacco Use Types Packs/Day Years [...] Sign Reading Time Taken Comments Blood Pressure 154/72 08/24/2023 10:26 AM EST Pulse 78 08/24/2023 10:26 AM EST Temperature 36.6 ??C (97.9 ??F) 08/24/2023 10:[address] Respiratory Rate 16 08/24/2023 10:26 AM EST Oxygen Saturation 98% 08/24/2023 10:26 AM EST Inhaled Oxygen Concentration - - [...] closest emergency room or call the hospital metal coater operator at [phone] and ask for physician lion trainer covering for your physician. Questions or problems after 5pm or on a weekend: Call the [facility] metal coater operator at and ask for the physician lion trainer covering for your doctor. At 1030am you [...] incision Constipation not relieved by diet and/or swkh-clt-dsnqsjh stool softeners and laxatives Nausea/vomiting (upset stomach) [...] have tobacco dependence clinics in these locations: [facility] Tobacco-Free Communities: Deepika [place] [facility] Tobacco Treatment [facility] [place], [place] Other Programs at [facility] in [place] Living Free of Tobacco support group: For anyone who has quit tobacco or is considering quitting tobacco. [facility] Health Education Center, Level 4, East Mall 3:30 to 4:30 p.m. on the tuesday of every month. Other Programs in the Area [facility] One-on-one counseling, hypnosis. Jenn Alvarado [facility] in [place], [place] One-on-one counseling, QuitLine, classes. Celesteaimee Peterson [facility]: One-on-one counseling. All ages and incomes eligible. Johanna Quispekobi [facility]: Classes & support group. Aureliano Munguia [place], [place] One-on-one counseling, QuitLine, classes, hypnosis therapy. Mirtha Campbell Information about Quitting Smoking and Tobacco See our Quitting Smoking - Information and Materials page (http://www.[email or web address]/medical- information/smoking/information_on_quitting_smoking.html) for educational information about quitting smoking, downloadable smoking cessation materials, podcasts, websites, helplines, and more. FOLLOW UP PLAN: Incision: [x] Please follow up for suture/staple removal in 10-14 days with your Primary Care Provider or with the Neurosurgery WATER TEAM LEADER/RN. Appointments: Please follow up in the Neurosurgery Clinic in 4 weeks with: [x] Dr. Alvarez Please call the Neurosurgery Office at [phone] if you do not receive a scheduled appointment. For after hours concerns/questions, call the hospital metal coater operator at [phone] and ask for the Neurosurgery resident on-call. [...] 600 mg by mouth 2 times daily. vieva-4-xiz-amx-gwh-xfvr anthin 250-2.5-0.5 mg Capsule Take 1 capsule [...] Palacios MD - 08/24/2023 10:05 AM EST [facility] NEUROSURGERY PRE-OPERATIVE H&P DATE: 08/24/2023 ID: Laine [...] 4.97) Jonna Palacios MD 08/24/2023 10:05 AM [facility] Neurosurgery Inpatient Pager: [phone] Personal Pager: [phone] documented in this encounter Miscellaneous Notes * Brief Op Note - Jonna Palacios MD - 08/24/2023 1:40 PM EST Brief Operative Note Patient Name: Laine Streeter : [id number] MR#: [id number] Case Date: 08/24/2023 Surgeon: Surgeon(s) and Role: [...] Alvarez MD - 08/24/2023 12:30 PM EST [facility] Operative Note Patient Name: Laine Streeter : [id number] MR#: [id number] Case Date: 08/24/2023 Surgeon: Surgeon(s) and Role: [...] hand, this is marked with a green blackfeet. The patient was taken back to the [...] Diagnosis Comments Revise Median N/Carpal Tunnel Surg (61994) 08/24/2023 12:15 PM EST Carpal tunnel syndrome, bilateral MEDIAN NERVE DECOMPRESSION (CARPAL TUNNEL RELEASE) Routine 08/24/2023 10:18 AM EST Carpal tunnel syndrome, bilateral documented in this encounter Visit Diagnoses Diagnosis Carpal tunnel syndrome, bilateral Carpal tunnel syndrome Carpal tunnel syndrome, bilateral Carpal tunnel syndrome [...] Given 08/24/2023 10:26 AM EST 975 mg BUpivacaine-EPINEPHrine (Marcaine-epiNEPHrine) 0.25 %-1:200,000 injection PRN, Starting on Tue08/24/23 at 1247, Until Tue08/24/23 at 1632, Intra-Operative (Intra-Procedure), Routine Given 08/24/2023 12:47 PM EST 2 mLs lactated ringers infusion 1,000 mL, at 100 [...] hand) documented in this encounter Care Teams Healthcare Financial Analyst Relationship Specialty Start Date End Date Bridgette Batista MD [address] [place] [address] [address] [place] [address] PCP - General Family Medicine 08/26/22 documented as of this encounter
--- OUTSIDE RECORDS SUMMARY | 2024-06-06 02:11 | XMS_ITS | Encounter Summary ---
Author Organization [facility] Address [facility] [place] [address] Care Team Providers Care Entry Level Mechanical Engineer Name Role Phone Bridgette Batista MD Primary Care Provider [phone] Encounter Details Date Type Department Care Team (Late st Contact Info) Description 06/21/2023 [place] [address] Niesha Alvarez MD [facility] [place] [address] Social History Tobacco Use Types Packs/Day Years Used Date Smoking Tobacco: Never Assessed Sex and Gender Information Value Date Recorded Sex Assigned at Not on file Gender Identity Not on file Sexual Orientation Not on file documented as of this encounter Miscellaneous Notes * Telephone Encounter - Dana Neal - 06/21/2023 10:09 AM EDT Called pt scheduled 07/01 TOV at 8:40 ----- Message from Niesha Alvarez MD sent at 06/19/2023 12:16 PM EDT ----- Can you set up TOV fo rme? Thanks! ----- Message ----- From: Sandra Morgan Sent: 06/17/2023 12:22 PM EDT To: MD Dr. Antonio Washington, Patient completed EMG and MRI that you had ordered. Did you want to see the patient again or were you waiting on the results to schedule surgery? Thank you! Malena documented in this encounter Plan of Treatment Not on file documented as of this encounter Visit Diagnoses Not on filedocumented in this encounter Care Teams Entry Level Mechanical Engineer Relationship Specialty Start Date End Date Bridgette Batista MD [address] [facility] [address] [place] [address] PCP - General Family Medicine 08/26/22 documented as of this encounter
[2024-06-06] MEDS: Denosumab 60 MG/ML SYR SC (09:31)
== END 2024-06-16 23:59 | disposition home or self-care (01) ==
LOC: INF 02:09
PROVIDERS: PCP Family Medicine; Visit Provider Family Medicine
DX: M81.0 Age-related osteoporosis without current pathological fracture (principal)
CPT/HCPCS: 96372; J0897

== ENCOUNTER 2024-07-27 03:01 | Outpatient (CLI) | payer MEDICARE, BC, SELFPAY ==
--- OUTSIDE RECORDS SUMMARY | 2024-07-27 03:02 | XMS_ITS | Encounter Summary ---
Author Organization [facility] [place] [address] Care Team Providers Care Plate Keeper Name Role Phone Bridgette Batista MD Primary Care Provider [phone] Encounter Details Date Type Department Care Team (Late st Contact Info) Description 09/02/2023 Telephone [place] [phone] Rajat Saleh, RN Social History Tobacco Use Types Packs/Day Years Used Date Smoking Tobacco: Never Smokeless Tobacco: Never Alcohol Use Standard Drinks/Week Comments Yes 7 (1 standard drink = 0.6 oz pur e alcohol) 1 glass of wine in the evening [facility] In[facility] Questions Answer Date Recorded Does [...] AM EST Laine Streeter 1950 72 y.o. [id number] F/U call s/p MEDIAN NERVE DECOMPRESSION (CARPAL TUNNEL RELEASE) (WRVU 4.97) (Right) Date of discharge: 08/24/23 Date of call: 09/02/23 Attempted call, received busy signal, unable to leave message. documented in this encounter Plan of Treatment Not on file documented as of this encounter Visit Diagnoses Not on filedocumented in this encounter Care Teams Plate Keeper Relationship Specialty Start Date End Date Bridgette Batista MD [address] [place] [address] PCP - General Family Medicine 08/26/22 documented as of this encounter
--- OUTSIDE RECORDS SUMMARY | 2024-07-27 03:02 | XMS_ITS | Encounter Summary ---
Author Organization [facility] Address [facility] [place] [address] Care Team Providers Care Wildlife And Game Protector Name Role Phone Bridgette Batista MD Primary Care Provider [phone] Encounter Details Date Type Department Care Team (Late st Contact Info) Description 10/07/2023 10:40 AM EST Office Visit Neurosurgery at [facility] [place] [address] Niesha Alvarez MD [facility] [address] Carpal tunnel syndrome, bilateral Social History Tobacco Use Types Packs/Day Years Used Date Smoking Tobacco: Never Smokeless Tobacco: Never Tobacco Cessation:Counseling Given: Not Answered Alcohol Use Standard Drinks/Week Comments Yes 7 (1 standard drink = 0.6 oz pur e alcohol) 1 glass of wine in the evening [facility] Inpatient Questions Answer Date Recorded Does [...] syndrome documented in this encounter Care Teams Wildlife And Game Protector Relationship Specialty Start Date End Date Bridgette Batista MD [address] [place] [address] PCP - General Family Medicine 08/26/22 documented as of this encounter
--- OUTSIDE RECORDS SUMMARY | 2024-07-27 03:02 | XMS_ITS | Encounter Summary ---
Author Organization [facility] [place] [address] Care Team Providers Care Industrial Machine System Technician Name Role Phone Bridgette Batista MD Primary Care Provider [phone] Encounter Details Date Type Department Care Team [...] on filedocumented in this encounter Care Teams Industrial Machine System Technician Relationship Specialty Start Date End Date Bridgette Batista MD [address] [place] [address] PCP - General Family Medicine 08/26/22 documented as of this encounter
--- OUTSIDE RECORDS SUMMARY | 2024-07-27 03:02 | XMS_ITS | Encounter Summary ---
Author Organization [facility] Address [facility] [place] [address] Care Team Providers Care Cobbler Mckay Name Role Phone Birdgette Batista MD Primary Care Provider [phone] Encounter Details Date Type Department Care Team (Late st Contact Info) Description 09/05/2023 10:00 AM EST Office Visit Neurosurgery at [facility] [place] [phone] Visit for suture removal Social History Tobacco Use Types Packs/Day Years Used Date Smoking Tobacco: Never Smokeless Tobacco: Never Alcohol Use Standard Drinks/Week Comments Yes 7 (1 standard drink = 0.6 oz pur e alcohol) 1 glass of wine in the evening [facility] Inpatient Questions Answer Date Recorded Does Anyone [...] AM EST Laine Streeter 1950 72 y.o. [id number] Procedures: MEDIAN NERVE DECOMPRESSION (CARPAL TUNNEL RELEASE) [...] mouth 2 times daily., Disp: , Rfl: uijfn-9-vlp-rnb-kml-gjhsihlxxf 250-2.5-0.5 mg Capsule, Take 1 capsule by mouth daily., Disp: , Rfl: documented in this encounter Plan of Treatment Not on file documented as of this encounter Visit Diagnoses Diagnosis Visit for suture removal Encounter for removal of sutures documented in this encounter Care Teams Cobbler Mckay Relationship Specialty Start Date End Date Bridgette Batista MD [address] [place] [address] PCP - General Family Medicine 08/26/22 documented as of this encounter
--- OUTSIDE RECORDS SUMMARY | 2024-07-27 03:02 | XMS_ITS | Clinical Summary ---
Author Organization [facility] Address [facility] [place] [address] Care Team Providers Care Corporate Auditor Name Role Phone Bridgette Batista MD Primary Care Provider [phone] Allergies Active Allergy Reactions Criticality Noted Date [...] mg by mouth 2 times daily. Active kqnqb-0-wtu-epa-lut-z eaxanthin 250-2.5-0.5 mg Capsule Take 1 capsule [...] 1950 Sigmoidoscopy 1950 Hepatitis C Screening 1967 Tetanus/Diphtheria/Pertussis Vaccines (1 - Tdap) 12/13 Breast Cancer Share Decision Needed 1989 Breast Cancer screening 1989 Zoster vaccine (1 of 2) 1999 Advance Directive 2004 Bone Density Scan 2014 Pneumoccocal Vaccine: 65+ (1 of 1 - PCV) 2014 Covid-19 Vaccine (1 - season) 2024 Influenza (Flu) vaccine (1 o f 1 - Influenza standard series) 06/17/2024 Care Teams Corporate Auditor Relationship Specialty Start Date End Date Bridgette Batista MD [address] [place] [address] PCP - General Family Medicine 08/26/22
--- OUTSIDE RECORDS SUMMARY | 2024-07-27 03:02 | XMS_ITS | Encounter Summary ---
Author Organization [facility] [place] [address] Care Team Providers Care Exterminator Helper Termite Name Role Phone Bridgette Batista MD Primary Care Provider [phone] Encounter Details Date Type Department Care Team [...] on filedocumented in this encounter Care Teams Exterminator Helper Termite Relationship Specialty Start Date End Date Bridgette Batista MD [address] [place] [address] PCP - General Family Medicine 08/26/22 documented as of this encounter
--- OUTSIDE RECORDS SUMMARY | 2024-07-27 03:02 | XMS_ITS | Encounter Summary ---
Author Organization [facility] Address [facility] [place] [address] Care Team Providers Care Correctional Probation Officer Name Role Phone Bridgette Batista MD Primary Care Provider [phone] Encounter Details Date Type Department Care Team (Late st Contact Info) Description 08/24/2023 11:50 AM EST - 08/24/2023 1:11 PM EST Surgery Out[place] [phone] Niesha Alvarez MD [facility] [place] [address] MEDIAN NERVE DECOMPRESSION (CARPAL TUNNEL RELEASE) (WRVU [...] closest emergency room or call the hospital cosmetics machine operator at [phone] and ask for physician watcher automat long goods covering for your physician. Questions or problems after 5pm or on a weekend: Call the [facility] cosmetics machine operator at and ask for the physician watcher automat long goods covering for your doctor. At 1030am you [...] incision Constipation not relieved by diet and/or nbbd-ibp-cwmpsqt stool softeners and laxatives Nausea/vomiting (upset stomach) [...] have tobacco dependence clinics in these locations: [facility]-Free Communities: Deepika [place] [facility] Tobacco Treatment [facility], [place] Other Programs at [facility] in [place] Living Free of Tobacco support group: For anyone who has quit tobacco or is considering quitting tobacco. [facility] Health Education Center, Level 4, East Mall 3:30 to 4:30 p.m. on the tuesday of every month. Other Programs in the Area [facility] One-on-one counseling, hypnosis. Jenn Alvarado [facility] in [place], [place] One-on-one counseling, QuitLine, classes. Celesteaimee Peterson [facility]: One-on-one counseling. All ages and incomes eligible. Johanna Quispekobi [facility]: Classes & support group. Aureliano Munguia [place], [place] One-on-one counseling, QuitLine, classes, hypnosis therapy. Mirtha Campbell Information about Quitting Smoking and Tobacco See our Quitting Smoking - Information and Materials page ([email or web address]/medical- information/smoking/information_on_quitting_smoking.html) for educational information about quitting smoking, downloadable smoking cessation materials, podcasts, websites, helplines, and more. FOLLOW UP PLAN: Incision: [x] Please follow up for suture/staple removal in 10-14 days with your Primary Care Provider or with the Neurosurgery EASEMENT WORKER/RN. Appointments: Please follow up in the Neurosurgery Clinic in 4 weeks with: [x] Dr. Alvarez Please call the Neurosurgery Office at [phone] if you do not receive a scheduled appointment. For after hours concerns/questions, call the hospital cosmetics machine operator at [phone] and ask for the Neurosurgery resident on-call. [...] 600 mg by mouth 2 times daily. woknh-9-gps-gfq-uwr-zqhb anthin 250-2.5-0.5 mg Capsule Take 1 capsule [...] Palacios MD - 08/24/2023 10:05 AM EST [facility] NEUROSURGERY PRE-OPERATIVE H&P DATE: 08/24/2023 ID: [...] [id number]) Jonna Palacios MD 08/24/2023 10:05 AM [facility] Neurosurgery Inpatient Pager: [phone] Personal Pager: [phone] documented in this encounter Miscellaneous Notes * Brief Op Note - Jonna Palacios MD - 08/24/2023 1:40 PM EST Brief Operative Note Patient Name: Laine Streeter : [id number] MR#: [id number] Case Date: 08/24/2023 Surgeon: Surgeon(s) and Role: [...] MD - 08/24/2023 12:30 PM EST [facility] Operative Note Patient Name: Laine Streeter : [id number] MR#: [id number] Case Date: 08/24/2023 Surgeon: Surgeon(s) and Role: [...] hand, this is marked with a green north fork. The patient was taken back to the [...] Diagnosis Comments Revise Median N/Carpal Tunnel Surg (82739) 08/24/2023 12:15 PM EST Carpal tunnel syndrome, [...] (Intra-Procedure), Routine 1247 (Given - Provid er: Niseha Alvarez MD - Comment: Right hand) documented in this encounter Care Teams Correctional Probation Officer Relationship Specialty Start Date End Date Bridgette Batista MD [address] [place] [address] [address] [place] [address] PCP - General Family Medicine 08/26/22 documented as of this encounter
--- OUTSIDE RECORDS SUMMARY | 2024-07-27 03:02 | XMS_ITS | Encounter Summary ---
Author Organization [facility] Address [facility] [place] [address] Care Team Providers Care Wrap Checker Name Role Phone Bridgette Batista MD Primary Care Provider [phone] Reason for Visit * Reason Onset Date Comments Appointment 08/25/2023 Encounter Details Date Type Department Care Team (Late st Contact Info) Description 08/25/2023 Telephone [place] [phone] Jonna Palacios MD [facility] [place] [address] Appointment Social History Tobacco Use Types Packs/Day Years Used Date Smoking Tobacco: Never Smokeless Tobacco: Never Alcohol Use Standard Drinks/Week Comments Yes 7 (1 standard drink = 0.6 oz pur e alcohol) 1 glass of wine in the evening [facility] Inpatient Questions Answer Date Recorded Does [...] on filedocumented in this encounter Care Teams Wrap Checker Relationship Specialty Start Date End Date Bridgette Batista MD [address] [facility] [address] [place] [address] PCP - General Family Medicine 08/26/22 documented as of this encounter
--- OUTSIDE RECORDS SUMMARY | 2024-07-27 03:02 | XMS_ITS | Encounter Summary ---
Author Organization [facility] Address [facility] [place] [address] Care Team Providers Care Architectural Project Manager Name Role Phone Bridgette Batista MD Primary Care Provider [phone] Encounter Details Date Type Department Care Team (Late st Contact Info) Description 08/24/2023 12:15 PM EST Anesthesia Event [place] [address] Damian Crockett MD [facility] [place] [address] Gene Bermudez MD [facility] [place] [address] Anesthesia Record Procedure Summary Procedure Name Responsible [...] by Dana Trinidad RN PIV 08/24/23; 1042; wqdn-oat-lngsnw catheter system; 22 gauge; basilic vein (medial [...] Procedure Summary Date: 08/24/23 Room / Location: [facility] OR [address] [place] [address] Anesthesia Start: 1215 Anesthesia Stop: 1350 Procedure: MEDIAN NERVE DECOMPRESSION (CARPAL TUNNEL RELEASE) (WRVU 4.97) (Right: Hand) Diagnosis: Carpal tunnel syndrome, bilateral (carpal tunnel syndrome) Surgeons: Niesha Alvarez MD Responsible Provider: Damian Crockett MD Anesthesia Type: MAC ASA Status: 2 All Anesthesia Providers: Anesthesiologist: Damian Crockett MD COFOUNDER: Wendy Gan CRNA; Genoveva Jacome CRNA Vitals Value Taken Time BP 164/76 08/24/23 1417 Temp 36.1 ??C (97 ??F) 08/24/23 1346 Pulse 52 08/24/23 1419 Resp 16 08/24/23 1415 SpO2 99 % 08/24/23 1415 Pain Level Vitals shown include unfiled device data. Patient Location: PACU/[facility] Level of Consciousness: Awake and Alert Pain [...] Procedure(s): MEDIAN NERVE DECOMPRESSION (CARPAL TUNNEL RELEASE) [facility] Patient Active Problem List Diagnosis [...] risks discussed with patient. Plan discussed with COFOUNDER. Anesthesia Screening documented in this encounter Plan [...] mg documented in this encounter Care Teams Architectural Project Manager Relationship Specialty Start Date End Date Bridgette Batista MD [address] [place] [address] [address] [facility] [address] [place] [address] PCP - General Family Medicine 08/26/22 documented as of this encounter
--- OUTSIDE RECORDS SUMMARY | 2024-07-27 03:03 | XMS_ITS | Referral Summary ---
Author Organization [facility] Address [address] [place] [address] Care Team Providers Care Sensory Scientist Name Role Phone Bridgette Batista MD Primary Care Provider [phone] Social History Tobacco Use Types Packs/Day Years Used Date Smoking Tobacco: Never Assessed Sex and Gender Information Value Date Recorded Sex Assigned at Not on file Gender Identity Not on file Sexual Orientation Not on file Plan of Treatment Not on file Care Teams Sensory Scientist Relationship Specialty Start Date End Date Bridgette Batista MD PCP - General 03/10/16
--- OUTSIDE RECORDS SUMMARY | 2024-07-27 03:03 | XMS_ITS | Encounter Summary ---
Author Organization [facility] Address [facility] [place] [address] Care Team Providers Care Well Drill Operator Cable Tool Name Role Phone Bridgette Batista MD Primary Care Provider [phone] Encounter Details Date Type Department Care Team (Latest Contact Info) Description 07/01/2023 8:40 AM EDT TH Visit (TeleHealth) [place] [address] Niesha Alvarez MD [facility] [place] [address] Carpal tunnel syndrome, bilateral (Primary Dx) Social [...] syndrome documented in this encounter Care Teams Well Drill Operator Cable Tool Relationship Specialty Start Date End Date Bridgette Batista MD [address] [place] [address] PCP - General Family Medicine 08/26/22 documented as of this encounter
--- OUTSIDE RECORDS SUMMARY | 2024-07-27 03:03 | XMS_ITS | Encounter Summary ---
Author Organization [facility] Address [facility] [place] [address] Care Team Providers Care Lock Tender Name Role Phone Bridgette Batista MD Primary Care Provider [phone] Encounter Details Date Type Department Care Team (Late st Contact Info) Description 06/21/2023 Telephone [place] [address] Niesha Alvarez MD [facility] [place] [address] Social History Tobacco Use Types Packs/Day Years [...] on filedocumented in this encounter Care Teams Lock Tender Relationship Specialty Start Date End Date Bridgette Batista MD [address] [facility] [address] [place] [address] PCP - General Family Medicine 08/26/22 documented as of this encounter
--- OUTSIDE RECORDS SUMMARY | 2024-07-27 03:03 | XMS_ITS | Encounter Summary ---
Author Organization [facility] Address [address] [place] [address] Care Team Providers Care Linux Devops Engineer Name Role Phone Unknown, Provider Primary Care Provider [phone] Encounter Details Date Type Department Care Team (Latest Contact Info) Description 10/22/2015 7:21 EST - 10/22/2015 23:59 EST Hospital Encounter [address] [address] Unknown, Provider, Discharge Disposition: Home or Self Care Social History Tobacco Use Types Packs/Day Years Used Date Smoking Tobacco: Never Assessed Sex and Gender Information Value Date Recorded Sex Assigned at Not on file Gender Identity Not on file Sexual Orientation Not on file documented as of this encounter Discharge Disposition Disposition Code Departure Means Destination Home or Self Intermediate documented in this encounter Plan of Treatment Not on file documented as of this encounter Visit Diagnoses Not on filedocumented in this encounter Care Teams Linux Devops Engineer Relationship Specialty Start Date End Date Unknown, Provider, PCP - General 08/26/15 03/09/16 documented as of this encounter
--- OUTSIDE RECORDS SUMMARY | 2024-07-27 03:03 | XMS_ITS | Encounter Summary ---
Author Organization [facility] Address [address] [place] [address] Care Team Providers Care Intermediate Frame Tender Name Role Phone Unknown, Provider Primary Care Provider [phone] Encounter Details Date Type Department Care Team (Late st Contact Info) Description 02/23/2016 Results Only [facility]- PRISM [phone] Bridgette Batista MD [address] [place] [address] Social History Tobacco Use Types [...] ? LAINE CHAN ? Accession #: ? [id number] ? : ? 1950 (Age: 65) ??F ?Collect Date: ? 02/23/2016 ? Location: ? [facility] ? Receive Date: ? 02/24/2016 ? Provider: BRIDGETTE BATISTA MD Copy to: ? Final Report SPECIMEN ADEQUACY ? Satisfactory for Evaluation - transformation zone component present GENERAL CATEGORIZATION ? Epithelial Cell Abnormality INTERPRETATION ? Squamous Cell Abnormality - Atypical squamous cells, undetermined significance (ASC-US). EDUCATIONAL NOTES/RECOMMENDATI ONS ? [facility] recommends following ASCCP's 2012 Updated Consensus Guidelines [...] 33,35,39,45,51,52, 56,58,59,66, and 68 is detected by dulite machine bluer mediated amplification. High and intermediate risk HPV [...] above diagnosis. End of Report [facility] 02/23/2016 02/24/2016 Bridgette Batista MD PATHOLOGY ORDERABLE S [facility] [address] [place] [address] documented in this encounter Visit Diagnoses Not on filedocumented in this encounter Care Teams Intermediate Frame Tender Relationship Specialty Start Date End Date Unknown, Provider, PCP - General 08/26/15 03/09/16 documented as of this encounter
--- OUTSIDE RECORDS SUMMARY | 2024-07-27 03:03 | XMS_ITS | Encounter Summary ---
Author Organization [facility] Address [address] [place] [address] Care Team Providers Care Heavy Equipment Supervisor Name Role Phone Unavailable Primary Care Provider Unavailabl e Encounter Details Date Type Department Care Team (Late st Contact Info) Description 07/30/2002 Results Only [facility] - Map conversion [address] [place] [address] Venkatesh Zamora MD [address] [place] [address] Social History Tobacco Use Types [...] CHAN LAINE J ? Accession #: ? [id number] : ? 1950 (Age: 51) ??F ?Collect [...] Zamora MD PATHOLOGY ORDERABLES CLAY MOSHER [address] [place] [address] documented in this encounter Visit Diagnoses Not on filedocumented in this encounter
--- OUTSIDE RECORDS SUMMARY | 2024-07-27 03:03 | XMS_ITS | Encounter Summary ---
Author Organization [facility] [place] [address] Care Team Providers Care Electronics Production Supervisor Name Role Phone Bridgette Batista MD Primary Care Provider Encounter Details Date Type Department Care Team (Late st Contact Info) Description 02/16/2023 Ancillary Procedure Radiology Library at [facility] [place] [phone] Bridgette Batista MD [address] [place] [address] [address] [place] [address] Social History Tobacco Use Types Packs/Day Years [...] Upper Extremity (02/16/2023 12:00 AM EDT) Narrative [facility] - 02/17/2023 5:45 AM EDT This exam is auto-finalizing. It's purpose is for storage only. Bridgette Batista MD G FILM LIBRARY ORD ERABLES [place], [place] documented in this encounter Visit Diagnoses Not on filedocumented in this encounter Care Teams Electronics Production Supervisor Relationship Specialty Start Date End Date Bridgette Batista MD [address] [place] [address] PCP - General Family Medicine 08/26/22 documented as of this encounter
--- OUTSIDE RECORDS SUMMARY | 2024-07-27 03:03 | XMS_ITS | Encounter Summary ---
Author Organization [facility] Address [address] [place] [address] Care Team Providers Care Aeronautics Teacher Name Role Phone Unavailable Primary Care Provider Unavailabl e Encounter Details Date Type Department Care Team (Late st Contact Info) Description 02/10/2015 Results Only [facility]- PRISM [phone] Bridgette Batista MD [address] [place] [address] [address] [place] [id number] Social History Tobacco Use Types Packs/Day Years [...] ? LAINE CHAN ? Accession #: ? [id number] ? : ? 1950 (Age: 64) ??F [...] 33,35,39,45,51,52, 56,58,59,66, and 68 is detected by ballet teacher mediated amplification. High and intermediate risk HPV [...] confirmed the above diagnosis. End of Report [facility] 02/10/2015 02/12/2015 Bridgette Batista MD PATHOLOGY ORDERABLE S [facility] [address] [place] [address] documented in this encounter Visit Diagnoses Not on filedocumented in this encounter
--- OUTSIDE RECORDS SUMMARY | 2024-07-27 03:03 | XMS_ITS | Encounter Summary ---
Author Organization [facility] Address [address] [place] [address] Care Team Providers Care Political Scientist Name Role Phone Unavailable Primary Care Provider Unavailabl e Encounter Details Date Type Department Care Team (Late st Contact Info) Description 05/06/2008 Before PRISM Converted Visit (Maple) [facility] - Maple conversion [address] [place] [address] Venkatesh Zamora MD [address] [facility] [address] [address] [place] [address] Social History Tobacco Use Types Packs/Day [...] ? LAINE CHAN ? Accession #: ? [id number] ? : ? 1950 (Age: 57) ??F [...] MD PATHOLOGY ORDERABLES Performing Organization Address City/State/[facility] Co de Phone Number CLAY MOSHER [address] [place] [address] documented in this encounter Visit Diagnoses Not on filedocumented in this encounter
--- OUTSIDE RECORDS SUMMARY | 2024-07-27 03:03 | XMS_ITS | Encounter Summary ---
Author Organization [facility] Address [address] [place] [address] Care Team Providers Care Felt Hanger Name Role Phone Unavailable Primary Care Provider Unavailabl e Encounter Details Date Type Department Care Team (Late st Contact Info) Description 06/17/2010 Results Only [facility] PRISM [phone] Tory Romero MD [address] [place] [address] Social History Tobacco Use Types Packs/Day Years [...] ng unformatted reports. ? Name: ? LAINE STREETER ? Accession #: ? [id number] ? : ? 1950 (Age: 59) ??F [...] Romero MD PATHOLOGY ORDERABLES Performing Organization Address City/State/[facility] Co de Phone Number CLAY MOSHER [address] [place] [address] documented in this encounter Visit Diagnoses Not on filedocumented in this encounter
--- OUTSIDE RECORDS SUMMARY | 2024-07-27 03:03 | XMS_ITS | Encounter Summary ---
Author Organization [facility] Address [address] [place] [address] Care Team Providers Care Bridge Leverman Name Role Phone Unavailable Primary Care Provider Unavailabl e Encounter Details Date Type Department Care Team (Late st Contact Info) Description 04/17/2002 Results Only [facility] conversion [address] [place] [address] Venkatesh Zamora MD [address] [facility] [address] [facility] [address] [place] [address] Social History Tobacco Use Types [...] ? LAINE CHAN ? Accession #: ? [id number] ? : ? 1950 (Age: 51) ??F [...] Zamora MD PATHOLOGY ORDERABLES CLAY MOSHER [address] [place] [address] documented in this encounter Visit Diagnoses Not on filedocumented in this encounter
--- OUTSIDE RECORDS SUMMARY | 2024-07-27 03:03 | XMS_ITS | Encounter Summary ---
Author Organization [facility] Address [address] [place] [address] Care Team Providers Care Primary Mill Roller Name Role Phone Unknown, Provider Primary Care Provider [phone] Encounter Details Date Type Department Care Team (Latest Contact Info) Description 02/23/2016 8:13 EDT - 02/23/2016 23:59 EDT Hospital Encounter [address] [address] Unknown, Provider, Discharge Disposition: Home or Self Care Social History Tobacco Use Types Packs/Day Years Used Date Smoking Tobacco: Never Assessed Sex and Gender Information Value Date Recorded Sex Assigned at Not on file Gender Identity Not on file Sexual Orientation Not on file documented as of this encounter Discharge Disposition Disposition Code Departure Means Destination Home or Self Correction documented in this encounter Plan of Treatment Not on file documented as of this encounter Visit Diagnoses Not on filedocumented in this encounter Care Teams Primary Mill Roller Relationship Specialty Start Date End Date Unknown, Provider, PCP - General 08/26/15 03/09/16 documented as of this encounter
--- OUTSIDE RECORDS SUMMARY | 2024-07-27 03:03 | XMS_ITS | Encounter Summary ---
Author Organization [facility] [place] [address] Care Team Providers Care Test Department Helper Name Role Phone Bridgette Batista MD Primary Care Provider Encounter Details Date Type Department Care Team (Late st Contact Info) Description 06/29/2023 [place] [phone] Gabino Mari, RN Social History Tobacco Use [...] on filedocumented in this encounter Care Teams Test Department Helper Relationship Specialty Start Date End Date Bridgette Batista MD [address] [place] [address] PCP - General Family Medicine 08/26/22 documented as of this encounter
--- OUTSIDE RECORDS SUMMARY | 2024-07-27 03:03 | XMS_ITS | Encounter Summary ---
Author Organization [facility] Address [address] [place] [address] Care Team Providers Care Cafeteria Aide Name Role Phone Unavailable Primary Care Provider Unavailabl e Encounter Details Date Type Department Care Team (Late st Contact Info) Description 04/16/2002 Results Only [facility] - Maple conversion [address] [place] [address] Venkatesh Zamora MD [address] [address] [place] [address] Social History Tobacco Use Types [...] CHAN LAINE J ? Accession #: ? [id number] : ? 1950 (Age: 51) ??F ?Collect [...] Zamora MD PATHOLOGY ORDERABLES Performing Organization Address City/State/[facility] Co de Phone Number CLAY MOSHER [address] [place] [address] documented in this encounter Visit Diagnoses Not on filedocumented in this encounter
--- OUTSIDE RECORDS SUMMARY | 2024-07-27 03:03 | XMS_ITS | Encounter Summary ---
Author Organization [facility] Address [address] [place] [address] Care Team Providers Care Kids Activities Coach Name Role Phone Unavailable Primary Care Provider Unavailabl e Encounter Details Date Type Department Care Team (Late st Contact Info) Description 10/07/2014 Results Only [facility] - [facility] ([facility]) [address] [place], [place] [address] Bridgette Batista MD [address] [place] [address] [address] [place] [address] Social History Tobacco Use Types [...] ? LAINE CHAN ? Accession #: ? [id number] ? : ? 1950 (Age: 63) ??F [...] 33,35,39,45,51,52, 56,58,59,66, and 68 is detected by party supply specialist mediated amplification. High and intermediate risk HPV [...] MD PATHOLOGY ORDERABLE S Performing Organization Address City/State/[facility] Co de Phone Number [facility] [address] [place] [address] documented in this encounter Visit Diagnoses Not on filedocumented in this encounter
--- OUTSIDE RECORDS SUMMARY | 2024-07-27 03:03 | XMS_ITS | Encounter Summary ---
Author Organization [facility] Address [facility] [place] [address] Care Team Providers Care Support Clerk Name Role Phone Bridgette Batista MD Primary Care Provider [phone] Reason for Referral * Consultation (Routine) - Closed Specialty Diagnoses / Procedures Referred By Elysia barajas Referred To Contact Diagnoses Carpal tunnel syndrome, bilateral Chao Cotton PA [facility] [place] [address] Neurology, [address] DICKEY [address] [place] [address] Referral ID Status Reason Start Date Expiration Date V isits Requested Visits Authorized [id number] Closed Consult, Test & Treat 01/17/2023 07/16/2023 1 1 Encounter Details Date Type Department Care Team (Late st Contact Info) Description 01/17/2023 Orders [place] [address] Chao Cotton PA [facility] [place] [address] Carpal tunnel syndrome, bilateral Social History Tobacco [...] syndrome documented in this encounter Care Teams Support Clerk Relationship Specialty Start Date End Date Bridgette Batista MD [address] [facility] [address] [place] [address] PCP - General Family Medicine 08/26/22 documented as of this encounter
--- OUTSIDE RECORDS SUMMARY | 2024-07-27 03:03 | XMS_ITS | Clinical Summary ---
Author Organization [facility] Address [address] [place] [address] Care Team Providers Care Adjuster And Inspector Name Role Phone Bridgette Batista MD Primary Care Provider [phone] Social History Tobacco Use Types Packs/Day Years [...] COVID-19 Vaccine (2022-24 season) 2023 Care Teams Adjuster And Inspector Relationship Specialty Start Date End Date Bridgette Batista MD PCP - General 03/10/16
--- OUTSIDE RECORDS SUMMARY | 2024-07-27 03:03 | XMS_ITS | Encounter Summary ---
[place] [address] Care Team Providers Care Police Sergeant Precinct Name Role Phone Bridgette Batista MD Primary Care Provider [phone] Encounter Details Date Type Department Care Team [...] on filedocumented in this encounter Care Teams Police Sergeant Precinct Relationship Specialty Start Date End Date Bridgette Batista MD [address] [place] [address] PCP - General Family Medicine 08/26/22 documented as of this encounter
--- OUTSIDE RECORDS SUMMARY | 2024-07-27 03:03 | XMS_ITS | Encounter Summary ---
Author Organization [facility] Address [address] [place] [address] Care Team Providers Care Paginator Name Role Phone Unavailable Primary Care Provider Unavailabl e Encounter Details Date Type Department Care Team (Late st Contact Info) Description 11/19/[address] [facility] - Maple conversion [address] [place] [address] Venkatesh Zamora MD [address] [facility] [address] [place] [address] Social History Tobacco Use Types [...] ng unformatted reports. Name: ? LAINE CHAN Steff ? Accession #: ? [id number] : ? 1950 (Age: 53) ??F ?Collect [...] Zamora MD PATHOLOGY ORDERABLES CLAY MOSHER [address] [place] [address] documented in this encounter Visit Diagnoses Not on filedocumented in this encounter
--- OUTSIDE RECORDS SUMMARY | 2024-07-27 03:03 | XMS_ITS | Encounter Summary ---
Author Organization [facility] Address [facility] [place] [address] Care Team Providers Care Social Media Content Specialist Name Role Phone Bridgette Batista MD Primary Care Provider [phone] Encounter Details Date Type Department Care Team (Late st Contact Info) Description 12/31/2022 1:00 PM EDT Office Visit Neurosurgery at [facility] [place] [address] Niesha Alvarez MD [facility] [place] [address] Carpal tunnel syndrome, bilateral Social History Tobacco Use Types Packs/Day Years Used Date Smoking Tobacco: Never Assessed Sex and Gender Information Value Date Recorded Sex Assigned at Not on file Gender Identity Not on file Sexual Orientation Not on file documented as of this encounter Progress Notes * Niesha Alvarez MD - 12/31/2022 1:00 PM EDT Neurosurgery Consultation 01/09/2023 Laine Streeter [id number] 1950 CC: Bilateral carpal tunnel syndrome HPI: [...] she will arrange to have this donein [place]. Once these additional studies are completed, we [...] syndrome documented in this encounter Care Teams Social Media Content Specialist Relationship Specialty Start Date End Date Bridgette Batista MD [address] [place] [address] [address] [facility] [address] [place] [address] PCP - General Family Medicine 08/26/22 documented as of this encounter
--- OUTSIDE RECORDS SUMMARY | 2024-07-27 03:03 | XMS_ITS | Encounter Summary ---
Author Organization [facility] Address [facility] [place] [address] Care Team Providers Care Technical Support Technician Name Role Phone Bridgette Batista MD Primary Care Provider [phone] Encounter Details Date Type Department Care Team (Latest Contact Info) Description 08/24/2023 10:13 AM EST - 08/24/2023 2:32 PM EST Hospital Encounter [facility] [address] Niesha Alvarez MD [facility] [place] [address] Carpal tunnel syndrome, bilateral Discharge Disposition: Home [...] closest emergency room or call the hospital moto mix operator at [phone] and ask for physician commercial litigation attorney covering for your physician. Questions or problems after 5pm or on a weekend: Call the [facility] moto mix operator at and ask for the physician commercial litigation attorney covering for your doctor. At 1030am you [...] incision Constipation not relieved by diet and/or uhia-jmq-xetoxtj stool softeners and laxatives Nausea/vomiting (upset stomach) [...] have tobacco dependence clinics in these locations: [facility] [place] for [place]-Free Communities: Deep[place] [facility] Tobacco Treatment [facility], [place] Other Programs at [facility] in [place] Living Free of Tobacco support group: For anyone who has quit tobacco or is considering quitting tobacco. [facility] Health Education Center, Level 4, [place] 3:30 to 4:30 p.m. on the tuesday of every month. Other Programs in the Area [facility] One-on-one counseling, hypnosis. Jenn Alvarado [facility] in [place], [place] One-on-one counseling, QuitLine, classes. Celeste Hewittkristinemily [facility]: One-on-one counseling. All ages and incomes eligible. Johanna Torres [facility]: Classes & support group. Aureliano Munguia [facility] in [place], [place] One-on-one counseling, QuitLine, classes, hypnosis therapy. Mirtha Shannan Information about Quitting Smoking and Tobacco See our Quitting Smoking - Information and Materials page (http://[email or web address]- [email or web address]/smoking/information_on_quitting_smoking.html) for educational information about quitting smoking, downloadable smoking cessation materials, podcasts, websites, helplines, and more. FOLLOW UP PLAN: Incision: [x] Please follow up for suture/staple removal in 10-14 days with your Primary Care Provider or with the Neurosurgery BOBCAT OPERATOR/RN. Appointments: Please follow up in the Neurosurgery Clinic in 4 weeks with: [x] Dr. Alvarez Please call the Neurosurgery Office at [phone] if you do not receive a scheduled appointment. For after hours concerns/questions, call the hospital moto mix operator at [phone] and ask for the Neurosurgery resident on-call. [...] 600 mg by mouth 2 times daily. ouror-7-dof-cey-kqk-axoe anthin 250-2.5-0.5 mg Capsule Take 1 capsule [...] Palacios MD - 08/24/2023 10:05 AM EST [facility] NEUROSURGERY PRE-OPERATIVE H&P DATE: 08/24/2023 ID: Laine [...] 4.97) Jonna Palacios MD 08/24/2023 10:05 AM [facility] Neurosurgery Inpatient Pager: #[phone] Personal Pager: #[phone] documented in this encounter Miscellaneous Notes * Brief Op Note - Jonna Palacios MD - 08/24/2023 1:40 PM EST Brief Operative Note Patient Name: Laine Streeter : [id number] MR#: [id number] Case Date: 08/24/2023 Surgeon: Surgeon(s) and Role: [...] Alvarez MD - 08/24/2023 12:30 PM EST [facility] Operative Note Patient Name: Laine Streeter : [id number] MR#: [id number] Case Date: 08/24/2023 Surgeon: Surgeon(s) and Role: [...] hand, this is marked with a green poarch. The patient was taken back to the [...] Diagnosis Comments Revise Median N/Carpal Tunnel Surg (50118) 08/24/2023 12:15 PM EST Carpal tunnel syndrome, [...] hand) documented in this encounter Care Teams Technical Support Technician Relationship Specialty Start Date End Date Bridgette Batista MD [address] [place] [address] PCP - General Family Medicine 08/26/22 documented as of this encounter
--- OUTSIDE RECORDS SUMMARY | 2024-07-27 03:03 | XMS_ITS | Encounter Summary ---
Author Organization [facility] Address [facility] [place] [address] Care Team Providers Care Parts Salvager Name Role Phone Bridgette Batista MD Primary Care Provider [phone] Reason for Referral * Consultation (Routine) - Closed Specialty Diagnoses / Procedures Referred By Elysia barajas Referred To Contact Diagnoses Carpal tunnel syndrome on right Ryley Hoover MD [facility] [place] [address] Unknown None Referral ID Status Reason Start Date Expiration Date V isits Requested Visits Authorized [id number] Closed Consult, Test & Treat 12/31/2022 06/29/2023 1 1 Encounter Details Date Type Department Care Team (Late st Contact Info) Description 12/31/2022 1:30 PM EDT Office [place] [address] Ryley Hoover MD [facility] [place] [address] Carpal tunnel syndrome on right Social History [...] around the nerves. Plan: Obtain MRI from [facility]. Repeat EMG studies. To be done at [facility]. Potential Surgical Grid Duration: 2.5 hours Timeframe: elective- () Coordinated with: Antonio Procedure: fat grafting, CTR, allograft CPT: 50967, 18347, [address], [address] Surgical site: abdomen, thumb Side: right Anesthesia: [...] syndrome documented in this encounter Care Teams Parts Salvager Relationship Specialty Start Date End Date Bridgette Batista MD [address] [place] [address] PCP - General Family Medicine 08/26/22 documented as of this encounter
--- OUTSIDE RECORDS SUMMARY | 2024-07-27 03:03 | XMS_ITS | Encounter Summary ---
Author Organization [facility] Address [address] [place] [address] Care Team Providers Care Seamer Panty Hose Name Role Phone Unknown, Provider Primary Care Provider [phone] Encounter Details Date Type Department Care Team (Late st Contact Info) Description 09/30/2015 Results Only [facility] [phone] Bridgette Batista MD [address] [place] [address] Social History Tobacco Use Types [...] ? LAINE CHAN ? Accession #: ? [id number] ? : ? 1950 (Age: 64) ??F [...] 33,35,39,45,51,52, 56,58,59,66, and 68 is detected by primer assembler mediated amplification. High and intermediate risk HPV [...] above diagnosis. End of Report [facility] 09/30/2015 10/01/2015 Bridgette Batista MD PATHOLOGY ORDERABLE S Performing Organization Address City/State/[facility] Co de Phone Number [facility] [address] [place] [address] documented in this encounter Visit Diagnoses Not on filedocumented in this encounter Care Teams Seamer Panty Hose Relationship Specialty Start Date End Date Unknown, Provider, PCP - General 08/26/15 03/09/16 documented as of this encounter
--- OUTSIDE RECORDS SUMMARY | 2024-07-27 03:03 | XMS_ITS | Encounter Summary ---
Author Organization [facility] Address [facility] [place] [address] Care Team Providers Care Cra Officer Name Role Phone Bridgette Batista MD Primary Care Provider [phone] Encounter Details Date Type Department Care Team (Late st Contact Info) Description 01/10/2023 [place] [phone] Niesha Alvarez MD [facility] [place] [address] Social History Tobacco Use Types Packs/Day Years [...] 11:49 AM EDT Spoke to Cj at [facility]. Going to fax EMG order to [facility] Once in eDH please IB Tiki to schedule surgery?? * Telephone Encounter - Izabela Alvarado R - 03/15/2023 12:43 PM EDT Sent 3rd request for EMG report to [facility] medical records.? Once in eDH please AMARILYS [place] to schedule surgery? Postponing 2 day to f/u on results * Telephone Encounter - Izabela Alvarado - 03/11/2023 12:25 PM EDT Sent 2nd request for EMG report to [facility] medical records. ?? Once in eDH please AMARILYS [place] to schedule surgery? Postponing 2 day to f/u on results * Telephone Encounter - Izabela Alvarado - 03/09/2023 1:17 PM EDT Sent request for EMG report to [facility] medical records. Once in eDH please AMAR[place]YS [place] to schedule surgery Postponing 2 day to f/u on results * Telephone Encounter - Izabela Alvarado - 02/17/2023 3:46 PM EDT EMG is scheduled 03/08 at [facility] ?? Postponing until 03/09 to rrequest EMG. Once in eDH please [place]AR[place]YS [place] to schedule surgery * Telephone Encounter - Izabela Alvarado - 02/02/2023 3:59 PM EDT Spoke to the pt MRI scheduled on 02/16 at [facility] EMG is scheduled 03/08 at [facility] Postponing until 02/17 to request imaging * Telephone Encounter - Izabela Alvarado - 01/24/2023 12:40 PM EDT Spoke to [facility] radiology. Pt was scheduled but now order is in pending. Advised to contact pt to find out the status of imaging. Spoke to gretta at [facility] neurology. Pt has not scheduled yet for EMG. Gretta to contact [facility] office if no order received. Spoke to pt. She is going to reach out to schedule both MRI and EMG at [facility] Postponing 1 wk to f/u on MRI and EMG * Telephone Encounter - Izabela Alvarado - 01/17/2023 3:07 PM EDT Sent MRI wrist, shalomos, DH screening questions to [facility] [[phone]] Sent referral to [facility] neurology through eDH Postponing 1 wk to f/u on imaging and EMG status * Telephone Encounter - Izabela Alvarado - 01/17/2023 2:42 PM EDT Chao, Can you please change MRI order to external as pt would like to complete at [facility]. Can you also place neurology referral as pt would like to complete EMG at [facility] as well. Thank you, Izabela * Telephone Encounter - Dana Neal - 01/10/2023 12:15 PM EDT RN, Please put in MRI Right wrist without contrast for Dr. Alvarez. Thanks, Dana Send IB message to Dr. Alvarez once MRI is completed and EMG at [facility] is completed in edh. Schedule for Surgery with Dr. Hoover. Copying Christine on this message. ~~~~~~~~~~~~~~~~~~~~~~~~~~~~~~~ Laine Streeter - 12/31/22 Niesha Alvarez MD Sent: Mary January 09, 2023 11:31 AM To: P [facility] Neurosurgery [place] ?? Message Plan; 1. ??MRI of the [...] on filedocumented in this encounter Care Teams Cra Officer Relationship Specialty Start Date End Date Bridgette Batista MD [address] [place] [address] PCP - General Family Medicine 08/26/22 documented as of this encounter
--- OUTSIDE RECORDS SUMMARY | 2024-07-27 03:03 | XMS_ITS | Encounter Summary ---
Author Organization [facility] [place] [address] Care Team Providers Care Poultry Picker Name Role Phone Bridgette Batista MD Primary Care Provider [phone] Encounter Details Date Type Department Care Team (Late st Contact Info) Description 01/20/2023 [place] [phone] Jacqueline Graves RN Social History Tobacco Use Types Packs/Day Years Used Date Smoking Tobacco: Never Assessed Sex and Gender Information Value Date Recorded Sex Assigned at Not on file Gender Identity Not on file Sexual Orientation Not on file documented as of this encounter Miscellaneous Notes * Telephone Encounter - Jacqueline Graves RN - 01/20/2023 1:52 PM EDT Copied from [facility] #[id number]. Topic: Specialty Dept CRMs - Generic Call >> Jan 20, 2023 12:16 PM Wojciech Carroll wrote: Specialist: Niesha Alvarez MD Relationship (if other than patient-full name): patient Reason for Call: Patient calling in regards to MRI and EMG orders. Patient inquires if both orders have been sent to [facility]. Patient also states that [facility] contacted patient to schedule carpal tunnel surgery. Patient states that patient was under the impression that testing needed completion and then scheduling for surgery would be at [facility]. Please call to advise. Attempted to call Laine to discuss questions. Orders were sent to [facility] and plan would be for patient to have surgery here at [facility]. Unable to leave . documented in this encounter Plan of Treatment Not on file documented as of this encounter Visit Diagnoses Not on filedocumented in this encounter Care Teams Poultry Picker Relationship Specialty Start Date End Date Bridgette Batista MD [address] [facility] [place] [address] PCP - General Family Medicine 08/26/22 documented as of this encounter
--- OUTSIDE RECORDS SUMMARY | 2024-07-27 03:03 | XMS_ITS | Encounter Summary ---
Author Organization [facility] Address [address] [place] [address] Care Team Providers Care Supervisor Net Making Name Role Phone Bridgette Batista MD Primary Care Provider [phone] Encounter Details Date Type Department Care Team (Late st Contact Info) Description 06/28/2016 Results Only [facility] [phone] Bridgette Batista MD [address] [place] [address] [address] [place] [address] Social History Tobacco Use Types [...] when reading/interpreti ng unformatted reports. Name: ? CHANLAINE LOWERY ? Accession #: ? [id number] ? : ? 1950 (Age: 65) ??F [...] types 16,18,31,33,35, 39,45,51,52,56,58, 59,66, and 68 by kettle girl mediated amplification. Comments Document reviewed and electronically signed by: ? System Interface ? Report date: 07/02/2016 By the signature above, the attending physician certifies that he/she has personally conducted a gross and/or microscopic examination of the described specimens and rendered or confirmed the above diagnosis. End of Report [facility] 06/28/2016 06/29/2016 Bridgette Batista MD PATHOLOGY ORDERABLE S [facility] [address] [place] [address] documented in this encounter Visit Diagnoses Not on filedocumented in this encounter Care Teams Supervisor Net Making Relationship Specialty Start Date End Date Bridgette Batista MD PCP - General 03/10/16 documented as of this encounter
--- OUTSIDE RECORDS SUMMARY | 2024-07-27 03:03 | XMS_ITS | Encounter Summary ---
[place] [address] Care Team Providers Care Rail Transit Operator Name Role Phone Bridgette Batista MD Primary Care Provider [phone] Reason for Referral * Consultation (Routine) - Closed Specialty Diagnoses / Procedures Referred By Elysia t Referred To Contact Neurosurgery Diagnoses Carpal tunnel syndrome on right Bridgette Batista MD [address] [place] [address] [facility] Neurosurgery [address] [place] [id number] Referral ID Status Reason Start Date Expiration Date V isits Requested Visits Authorized [id number] Closed Consult, Test & Treat PCP Updated and/or Approved 06/14/2023 2023 6 6 Encounter Details Date Type Department Care Team (Late st Contact Info) Description 06/17/2023 Transcribe Orders eDH Incoming Referrals [phone] Bridgette Batista MD [address] [place], [place] [id number] Carpal tunnel syndrome on right Social History [...] syndrome documented in this encounter Care Teams Rail Transit Operator Relationship Specialty Start Date End Date Bridgette Batista MD [address] [facility] [address] [place] [address] PCP - General Family Medicine 08/26/22 documented as of this encounter
--- OUTSIDE RECORDS SUMMARY | 2024-07-27 03:03 | XMS_ITS | Encounter Summary ---
[place] [address] Care Team Providers Care Steel Turner Name Role Phone Bridgette Batista MD Primary Care Provider [phone] Encounter Details Date Type Department Care Team (Late st Contact Info) Description 01/10/2023 [place] [address] Rajat Saleh, RN Carpal tunnel syndrome, bilateral [...] syndrome documented in this encounter Care Teams Steel Turner Relationship Specialty Start Date End Date Bridgette Batista MD [address] [place] [address] PCP - General Family Medicine 08/26/22 documented as of this encounter
--- OUTSIDE RECORDS SUMMARY | 2024-07-27 03:03 | XMS_ITS | Encounter Summary ---
Author Organization [facility] Address [address] [place] [address] Care Team Providers Care Yoga Instructor Name Role Phone Unknown, Provider Primary Care Provider [phone] Encounter Details Date Type Department Care Team (Late st Contact Info) Description 10/22/2015 Results Only [facility] [phone] Tory Romero MD [address] [place] [address] Social History Tobacco Use Types Packs/Day Years [...] Flores 10/23/2015 1:09 PM End of Report [facility] 10/22/2015 8:59 EST 10/23/2015 8:59 EST Tory Romero MD PATHOLOGY ORDERABLES Performing Organization Address City/State/[facility] Co de Phone Number [facility] [address] [place] [address] documented in this encounter Visit Diagnoses Not on filedocumented in this encounter Care Teams Yoga Instructor Relationship Specialty Start Date End Date Unknown, Provider, PCP - General 08/26/15 03/09/16 documented as of this encounter
[2024-07-27 11:44] LABS: ALT 23 U/L (14-59); AST 17 U/L (15-37); Albumin 4.2 g/dL (3.4-5.0); Alkaline Phosphatase 37 U/L (46-116); Anion Gap 8.4 mmol/L (3-11); BUN 11 mg/dL (7-18); Bilirubin, Total 0.85 mg/dL (0.2-1.0); CO2 27.6 mmol/L (21.0-32.0); CREATININE 0.8 mg/dL (0.55-1.02); Calcium 9.5 mg/dL (8.5-10.1); Calculated LDL 105 mg/dL (<100); Chloride 108 mmol/L (98-107); Cholesterol 187 mg/dL (<200); Estimated GFR 77.27 (mL/min/1.73m2); Glucose 90 mg/dL (74-106); HDL Cholesterol 57 mg/dL (40-60); Potassium 4.2 mmol/L (3.5-5.1); Sodium 144 mmol/L (136-145); Total Protein 7.7 g/dL (6.4-8.2); Triglyceride 129 mg/dL (<150)
[2024-07-27 11:47] LABS: Hemoglobin A1C 5.7 % (<5.7)
[2024-07-30 10:42] LABS: Hepatitis C Ab w Rflx HCV PCR Negative (Negative)
== END 2024-07-27 03:02 | disposition home or self-care (01) ==
LOC: LBO 03:01
PROVIDERS: PCP Family Medicine; Visit Provider Family Medicine
DX: I10 Essential (primary) hypertension (principal); Z11.59 Encounter for screening for other viral diseases; E11.9 Type 2 diabetes mellitus without complications
CPT/HCPCS: 36415; 80053; 80061; 86803; 83036

== ENCOUNTER 2024-12-11 02:21 | Outpatient (RCR) | payer MEDICARE, BC, SELFPAY ==
[2024-12-11] MEDS: Denosumab 60 MG/ML SYR SC (10:05)
== END 2024-12-14 23:59 | disposition home or self-care (01) ==
LOC: INF 02:21
PROVIDERS: PCP Family Medicine; Visit Provider Family Medicine
DX: M81.0 Age-related osteoporosis without current pathological fracture (principal)
CPT/HCPCS: 96372; J0897

== ENCOUNTER 2025-02-20 01:56 | Outpatient (CLI) | payer MEDICARE, BC, SELFPAY ==
[2025-02-20 12:44] LABS: Hemoglobin A1C 5.6 % (<5.7)
[2025-02-20 12:47] LABS: ALT 21 U/L (14-59); AST 19 U/L (15-37); Alkaline Phosphatase 37 U/L (46-116); BUN 14 mg/dL (7-18); Bilirubin, Total 0.8 mg/dL (0.2-1.0); CREATININE 0.7 mg/dL (0.55-1.02); Calcium 9.1 mg/dL (8.5-10.1); Calculated LDL 92 mg/dL (<100); Chloride 105 mmol/L (98-107); Cholesterol 172 mg/dL (<200); Estimated GFR 90.14 (mL/min/1.73m2); Glucose 90 mg/dL (74-106); HDL Cholesterol 53 mg/dL (>or=50); Potassium 4.4 mmol/L (3.5-5.1); Sodium 140 mmol/L (136-145); Total Protein 7.5 g/dL (6.4-8.2)
[2025-02-20 13:00] LABS: Triglyceride 139 mg/dL (<150)
== END 2025-02-20 01:57 | disposition home or self-care (01) ==
LOC: LOS 01:57
PROVIDERS: PCP Family Medicine; Visit Provider Family Medicine
DX: E11.9 Type 2 diabetes mellitus without complications (principal); I10 Essential (primary) hypertension
CPT/HCPCS: 36415; 80053; 80061; 83036

== ENCOUNTER 2025-08-29 00:16 | Outpatient (RCR) | payer MEDICARE, BC, SELFPAY ==
[2025-08-29] MEDS: Denosumab 60 MG/ML SYR SC (08:34)
== END 2025-09-15 23:59 | disposition home or self-care (01) ==
LOC: INF 00:16
PROVIDERS: PCP Family Medicine; Visit Provider Family Medicine
DX: M81.0 Age-related osteoporosis without current pathological fracture (principal)
CPT/HCPCS: 96372; J0897

== ENCOUNTER → 2025-08-29 02:31 | Outpatient (CLI) | payer MEDICARE, BC, SELFPAY ==
--- NOTE | 2025-08-29 08:02 | DI.MAMMO_ITS ---
Exam(s) MAMMO SCREENING EXAM: MAMMO SCREENING CLINICAL HISTORY: screening,z12.39. TECHNIQUE: Bilateral full field digital CC and MLO mammographic images were obtained with 3D tomosynthesis and utilizing computer aided detection (CAD). COMPARISON: Prior mammograms were reviewed. FINDINGS: There has been no significant change in the appearance and distribution of the fibroglandular tissue. There are no new spiculated masses nor malignant appearing microcalcification groups. There is no significant architectural distortion nor skin thickening-retraction. IMPRESSION: No radiographic evidence of malignancy. BI-RADS Category 1 - Negative Breast Density - Category C - The breast are heterogeneously dense, which may obscure small masses. Breast density Category C or D implies that the patient has dense breast tissue. Dense breast tissue can make it harder to find cancer on a mammogram. Dense breast tissue is also associated with an increased risk of breast cancer. This information about the result of the mammogram report was provided to the patient to raise their awareness. Use this report when you speak with the patient about their risks for breast cancer, which includes their family history. At that time, you may recommend additional screening tests (Ultrasound or MRI) as these tests may add significant information. A negative radiographic report should not delay biopsy if a dominant or clinically suspicious mass is present. Up to ten percent of cancers are not identified on mammography. A negative report may reinforce clinical impression. Adenosis and dense breasts may obscure an underlying neoplasm. False positive reports average 6 to 10%. Patient will receive a letter notifying them of these results.
== END ==
PROVIDERS: PCP Family Medicine; Visit Provider Family Medicine
DX: Z12.31 Encounter for screening mammogram for malignant neoplasm of breast (principal); R92.323 Mammographic fibroglandular density, bilateral breasts
CPT/HCPCS: 77063; 77067